=== PATIENT | female | born 1940 | race Caucasian/White ===

== ENCOUNTER → 2017-07-19 | Outpatient (CLI) | payer MEDICARE ==
[~2017-07-19] MED LIST: (NONE)10 MG PO; ALTERIL PO; AMBIEN10 M1 PO; AMLODIPINE10 MG; AMLODIPINE5 MG PO; ATENOLOL25 MG PO; ATIVAN1 MG PO; CARVEDILOL12.5 MG; CATAPRES0.2 MG PO; CEFTIN250 MG PO; CIPRO500 MG PO; CLONIDINE0.2 MG PO; CYMBALTA20 MG PO; DESYREL50 MG PO; DICYCLOCOT10 MG PO; DIFLUCAN100 MG PO; DITROPAN5 MG PO; DOES NOT KNOW MEDS; DULCOLAX5 MG PO; GABAPENTIN300 M1; GLUCOPHAGE500 MG PO; LANTUS100 U/ML SC; LASIX20 MG; LISINOPRIL20 MG PO; METFORMIN500 MG PO; METHOCARBAMOL750 MG PO; MOTRIN800 MG PO; NORVASC5 MG PO; PHENAZOPYRIDIN200 M1 PO; PROTONIX40 MG PO; REQUIP0.5 MG PO; REQUIP1 MG PO; ROBAXIN750 MG PO; SYNTHROID,LEVO25 MCG PO; Synthroid,Levo25 MCG PO; TENORMIN25 MG PO; TRAMADOL50 MG; ZESTRIL20 MG PO; ZITHROMAX250 MG PO; ZOFRAN4 MG PO
[2017-07-19 18:26] LABS: HEMATOCRIT 39.5 % (37.0-47.0); HEMOGLOBIN 12.6 g/dl (12.0-16.0); MEAN CELL VOLUME 86.1 fl (81.0-99.0); MEAN CORPUSCULAR HGB 27.5 pg (27.0-31.0); MEAN CORPUSCULAR HGB CONC 31.9 g/dl (33.0-37.0); MEAN PLATELET VOLUME 9.7 fl (9.6-12.3); RED BLOOD COUNT 4.59 10*6/uL (4.10-5.10); WHITE BLOOD COUNT 15.1 10*3/uL (4.8-10.8)
[2017-07-19 18:49] LABS: ALBUMIN 2.9 gm/dl (3.1-4.5); ALKALINE PHOSPHATASE 130 U/L (45-117); BUN 24 mg/dl (7-24); CHLORIDE 98 mmol/L (98-107); CHOLESTEROL 158 mg/dL (<200); CREATININE 0.87 mg/dL (0.55-1.02); HDL CHOLESTEROL 37 mg/dl (40-60); LDL CHOLESTEROL 90 mg/dL (9-159); SGOT/AST 18 IU/L (3-35); SGPT/ALT 18 U/L (12-78); SODIUM 133 mmol/L (136-145); TOTAL PROTEIN 7.5 gm/dL (6.4-8.2); TRIGLYCERIDES 157 mg/dl (<150); VLDL CHOLESTEROL 31 mg/dL (6-40)
== END | disposition home or self-care (01) ==
LOC: LAB 17:41
DX: I10 Essential (primary) hypertension (principal); E11.9 Type 2 diabetes mellitus without complications; L97.429 Non-pressure chronic ulcer of left heel and midfoot with unspecified severity; R60.0 Localized edema

== ENCOUNTER → 2017-07-22 | Outpatient (CLI) | payer MEDICARE | END | disposition home or self-care (01) | LOC: WOUNDCARE 02:32 | DX: E11.621 Type 2 diabetes mellitus with foot ulcer (principal); L97.412 Non-pressure chronic ulcer of right heel and midfoot with fat layer exposed; L97.422 Non-pressure chronic ulcer of left heel and midfoot with fat layer exposed; E03.9 Hypothyroidism, unspecified; I10 Essential (primary) hypertension; M19.90 Unspecified osteoarthritis, unspecified site; F41.9 Anxiety disorder, unspecified; F32.9 Major depressive disorder, single episode, unspecified; F17.210 Nicotine dependence, cigarettes, uncomplicated; Z79.82 Long term (current) use of aspirin; Z90.710 Acquired absence of both cervix and uterus; Z96.652 Presence of left artificial knee joint ==

== ENCOUNTER → 2017-07-26 | Outpatient (CLI) | payer MEDICARE | END | disposition home or self-care (01) | LOC: US 15:00 | DX: L97.412 Non-pressure chronic ulcer of right heel and midfoot with fat layer exposed (principal); L97.422 Non-pressure chronic ulcer of left heel and midfoot with fat layer exposed ==

== ENCOUNTER → 2017-07-28 | Outpatient (CLI) | payer MEDICARE | END | disposition home or self-care (01) | LOC: WOUNDCARE 01:28 | DX: I70.244 Atherosclerosis of native arteries of left leg with ulceration of heel and midfoot (principal); E11.621 Type 2 diabetes mellitus with foot ulcer; L97.422 Non-pressure chronic ulcer of left heel and midfoot with fat layer exposed; I70.234 Atherosclerosis of native arteries of right leg with ulceration of heel and midfoot; L97.412 Non-pressure chronic ulcer of right heel and midfoot with fat layer exposed; E03.9 Hypothyroidism, unspecified; I10 Essential (primary) hypertension; M19.90 Unspecified osteoarthritis, unspecified site; F32.9 Major depressive disorder, single episode, unspecified; F41.9 Anxiety disorder, unspecified; F17.210 Nicotine dependence, cigarettes, uncomplicated; Z90.710 Acquired absence of both cervix and uterus; Z96.652 Presence of left artificial knee joint ==

== ENCOUNTER 2017-10-19 14:00 | Emergency (ER) | payer MEDICARE ==
[~2017-10-19] VITALS: Ht 167.6 cm; Wt 124.7 kg
[2017-10-19] MEDS ORDERED: CEFADROXIL500 M1 PO (15:35)
== END 2017-10-19 15:59 | disposition home or self-care (01) ==
LOC: ED 14:00
DX: S92.425B Nondisplaced fracture of distal phalanx of left great toe, initial encounter for open fracture (principal); E11.40 Type 2 diabetes mellitus with diabetic neuropathy, unspecified; M21.372 Foot drop, left foot; F17.200 Nicotine dependence, unspecified, uncomplicated; Z90.710 Acquired absence of both cervix and uterus; Z98.51 Tubal ligation status; Z79.899 Other long term (current) drug therapy; Z79.84 Long term (current) use of oral hypoglycemic drugs; X58.XXXA Exposure to other specified factors, initial encounter; Y93.89 Activity, other specified; Y92.89 Other specified places as the place of occurrence of the external cause; Y99.8 Other external cause status

== ENCOUNTER 2018-09-07 07:27 | Emergency (ER) | payer MEDICARE ==
[~2018-09-07] VITALS: Ht 167.6 cm; Wt 120.7 kg
[~2018-09-07 07:27] MED LIST changes: +ASPIRIN ADULT L81 M2 PO; +ASPIRIN CHEWABL81 MG PO; +CARVEDILOL3.125 MG PO; +CEFADROXIL500 M1 PO; +COREG3.125 MG PO; +COZAAR100 MG PO; +DITROPAN XL10 MG PO; +DOXYCYCLINE100 M3 PO; +FUROSEMIDE40 MG PO; +GABAPENTIN600 MG PO; +K-TAB20 MEQ PO; +LASIX40 MG PO; +LEVOTHYROXINE150 MCG PO; +LEVOTHYROXINE175 MCG PO; +LIPITOR10 MG PO; +METFORMIN HYD1000 MG PO; +NYSTOP60 GM T; +OXYBUTYNIN CHLOR5 MG PO; +POTASSIUM CHLO20 ME4 PO; +ROPINIROLE HYDRO1 MG PO; +SERTRALINE HYD100 MG PO; +SYNTHROID,LEV175 MCG PO; +TRAD5TAB1 PO
== END 2018-09-07 09:21 | disposition home or self-care (01) ==
LOC: ED 07:27
DX: S70.02XA Contusion of left hip, initial encounter (principal); S40.011A Contusion of right shoulder, initial encounter; E11.22 Type 2 diabetes mellitus with diabetic chronic kidney disease; I12.9 Hypertensive chronic kidney disease with stage 1 through stage 4 chronic kidney disease, or unspecified chronic kidney disease; E11.40 Type 2 diabetes mellitus with diabetic neuropathy, unspecified; N18.3 Chronic kidney disease, stage 3 (moderate); E03.9 Hypothyroidism, unspecified; E66.9 Obesity, unspecified; F17.200 Nicotine dependence, unspecified, uncomplicated; Z79.899 Other long term (current) drug therapy; Z79.82 Long term (current) use of aspirin; Z68.30 Body mass index [BMI] 30.0-30.9, adult; Z90.710 Acquired absence of both cervix and uterus; W06.XXXA Fall from bed, initial encounter; Y93.89 Activity, other specified; Y92.098 Other place in other non-institutional residence as the place of occurrence of the external cause; Y99.8 Other external cause status

== ENCOUNTER → 2018-10-07 | Outpatient (CLI) | payer MEDICARE | END | disposition home or self-care (01) | LOC: ORTHO 01:57 | DX: M51.36 Other intervertebral disc degeneration, lumbar region (principal); M47.816 Spondylosis without myelopathy or radiculopathy, lumbar region ==

== ENCOUNTER 2019-04-29 12:26 | Emergency (ER) | payer MEDICARE | END 2019-04-29 16:01 | LOC: ED 12:26 | DX: S30.0XXA Contusion of lower back and pelvis, initial encounter (principal); E03.9 Hypothyroidism, unspecified; E78.5 Hyperlipidemia, unspecified; I12.9 Hypertensive chronic kidney disease with stage 1 through stage 4 chronic kidney disease, or unspecified chronic kidney disease; E11.22 Type 2 diabetes mellitus with diabetic chronic kidney disease; N18.3 Chronic kidney disease, stage 3 (moderate); Y99.8 Other external cause status; F41.9 Anxiety disorder, unspecified; F32.9 Major depressive disorder, single episode, unspecified; Z79.899 Other long term (current) drug therapy; Z79.84 Long term (current) use of oral hypoglycemic drugs; Z79.82 Long term (current) use of aspirin; Z90.710 Acquired absence of both cervix and uterus; Z87.891 Personal history of nicotine dependence; W19.XXXA Unspecified fall, initial encounter; Y93.89 Activity, other specified; Y92.89 Other specified places as the place of occurrence of the external cause ==

== ENCOUNTER 2019-05-27 19:47 | Inpatient (IN) | payer MEDICARE ==
[~2019-05-27] VITALS: Ht 167.6 cm; Wt 133.6 kg
[2019-05-27 20:31] LABS: CLARITY SL CLOUDY (CLEAR); COLOR YELLOW (YELLOW)
[2019-05-27 20:32] LABS: BILIRUBIN NEGATIVE (NEGATIVE); BLOOD 1+ (NEGATIVE); GLUCOSE NEGATIVE (NEGATIVE); KETONE NEGATIVE (NEGATIVE); LEUKO ESTERASE 2+ (NEGATIVE); NITRITE NEGATIVE (NEGATIVE); PH 8.5 (5.0-9.0); SPECIFIC GRAVITY 1.005 (1.005-1.030); UROBILINOGEN 0.2 E.U./dl (0.2-1.0)
[2019-05-27 20:34] LABS: BACTERIA 4+; RBC 0-2 rbc/hpf (0-2)
[2019-05-27 20:35] VITALS: BP 170/78
[2019-05-27 20:43] LABS: BASO # 0.1 10*3/uL (0.0-0.1); BASO % 0.5 % (0.0-1.0); EOS # 0.1 10*3/uL (0.0-0.4); EOS % 0.6 % (1.0-4.0); HEMATOCRIT 36.6 % (37.0-47.0); HEMOGLOBIN 11.1 g/dl (12.0-16.0); LYMPH # 2.4 10*3/uL (1.3-4.4); LYMPH % 12.6 % (27.0-41.0); MEAN CELL VOLUME 88.6 fl (81.0-99.0); MEAN CORPUSCULAR HGB 26.9 pg (27.0-31.0); MEAN CORPUSCULAR HGB CONC 30.3 g/dl (33.0-37.0); MEAN PLATELET VOLUME 9.5 fl (9.6-12.3); MONO # 1.3 10*3/uL (0.1-1.0); MONO % 6.7 % (3.0-9.0); NEUT # 14.7 10*3/uL (2.3-7.9); NEUT % 78.5 % (47.0-73.0); PLATELET COUNT AUTOMATED 420 10*3/uL (130-400); RED BLOOD COUNT 4.13 10*6/uL (4.10-5.10); RED CELL DISTRI WIDTH 14.6 % (0-14.5); WHITE BLOOD COUNT 18.8 10*3/uL (4.8-10.8)
[2019-05-27 20:55] LABS: ACT PARTIAL THROMBO TIME 28.2 SECONDS (20.0-32.1)
[2019-05-27 21:06] LABS: ALBUMIN 2.6 gm/dl (3.1-4.5); ALKALINE PHOSPHATASE 89 U/L (45-117); BUN 36 mg/dl (7-24); CHLORIDE 95 mmol/L (98-107); CREATININE 1.71 mg/dL (0.55-1.02); POTASSIUM 4.4 mmol/L (3.5-5.1); SGOT/AST 74 IU/L (3-35); SGPT/ALT 37 U/L (12-78); SODIUM 131 mmol/L (136-145); TOTAL PROTEIN 9.5 gm/dL (6.4-8.2)
[2019-05-27 21:07] LABS: TROPONIN I < 0.015 ng/ml (<0.045)
[2019-05-27 21:21] VITALS: BP 173/85
[2019-05-27 21:46] VITALS: BP 161/83
[2019-05-27 22:45] VITALS: BP 167/82
--- NOTE | 2019-05-27 22:50 | NUR ---
PT IS CONFUSED. ALERT TO SELF. NOT ABLE TO RESPOND TO QUESTIONS APPROPRIATLY, AND JUST RESPONDS "YES" TO EVERYTHING YOU ASK/SAY. BED ALARM ON, WHEELS LOCKED AND BED IN LOWEST POSITION. PT IS GIVEN THE CALL LIGHT AND SHOWED HOW TO USE IT. WILL CONTINUE TO MONITOR
[2019-05-27] MEDS ORDERED: LANTUS SOL100 UNIT/1 IM (23:15)
[2019-05-27] MEDS ORDERED: NORVASC5 MG PO (23:16)
[2019-05-27] MEDS ORDERED: HYDROCODON-ACET15 ML PO (23:17)
[2019-05-27] MEDS ORDERED: CRANBERRY200 MG PO (23:24)
[2019-05-27] MEDS ORDERED: FLORASTOR250 MG PO (23:25)
[2019-05-27] MEDS ORDERED: STOOL SOFTENER240 M2 PO (23:26)
[2019-05-27] MEDS ORDERED: HUMALOG100 UNIT/2 SC (23:27)
[2019-05-27] MEDS ORDERED: ABILIFY2 MG PO (23:28)
[2019-05-27] MEDS ORDERED: CYMBALTA30 MG PO (23:29)
[2019-05-27] MEDS ORDERED: GLIMEPIRIDE2 MG PO (23:30)
[2019-05-27] MEDS ORDERED: GLUCOPHAGE1000 MG PO (23:30)
[2019-05-27] MEDS ORDERED: TRAD5TAB1 PO (23:32)
[2019-05-27] MEDS ORDERED: OXYBUTYNIN10 MG PO (23:33)
--- NOTE | 2019-05-27 23:36 | NUR ---
CALLED DR ROBBINS TO LET HIM KNOW OF UPDATED MED REC
[2019-05-28] VITALS: BP 160/60
--- NOTE | 2019-05-28 00:02 | NUR ---
PT BLOOD SUGAR IS 60, ORANGE JUICE GIVEN AT THIS TIME. WILL RE-CHECK SUGAR
--- NOTE | 2019-05-28 00:40 | NUR ---
BLADDER SCANNER DONE AT THIS TIME AND SHOWING 17ML. WILL CONTINUE TO MONITOR
--- NOTE | 2019-05-28 02:01 | NUR ---
24 HR chart check completed.
[2019-05-28 03:49] VITALS: BP 160/58
--- NOTE | 2019-05-28 05:53 | NUR ---
CALLED DR CHAPPELL RESIDENT ABOUT FLORENCE HUERTA, WILL BE IN THIS MORNING TO SEE PATIENT
[2019-05-28 06:32] LABS: BASO # 0.1 10*3/uL (0.0-0.1); BASO % 0.4 % (0.0-1.0); EOS # 0.2 10*3/uL (0.0-0.4); EOS % 1.4 % (1.0-4.0); HEMATOCRIT 32.1 % (37.0-47.0); HEMOGLOBIN 9.6 g/dl (12.0-16.0); LYMPH # 2.1 10*3/uL (1.3-4.4); LYMPH % 12.9 % (27.0-41.0); MEAN CELL VOLUME 88.4 fl (81.0-99.0); MEAN CORPUSCULAR HGB 26.4 pg (27.0-31.0); MEAN CORPUSCULAR HGB CONC 29.9 g/dl (33.0-37.0); MEAN PLATELET VOLUME 9.7 fl (9.6-12.3); MONO # 0.9 10*3/uL (0.1-1.0); MONO % 5.8 % (3.0-9.0); NEUT # 12.8 10*3/uL (2.3-7.9); NEUT % 78.4 % (47.0-73.0); PLATELET COUNT AUTOMATED 369 10*3/uL (130-400); RED BLOOD COUNT 3.63 10*6/uL (4.10-5.10); RED CELL DISTRI WIDTH 14.6 % (0-14.5); WHITE BLOOD COUNT 16.3 10*3/uL (4.8-10.8)
[2019-05-28 07:03] LABS: ALBUMIN 2.2 gm/dl (3.1-4.5); CREATININE 1.52 mg/dL (0.55-1.02); FREE T4 1.11 ng/dl (0.76-1.46); PHOSPHOROUS 4.6 mg/dL (2.5-4.9); POTASSIUM 4.6 mmol/L (3.5-5.1); TOTAL PROTEIN 8.1 gm/dL (6.4-8.2)
[2019-05-28 07:07] LABS: THYROID STIM HORMONE (HS) 0.895 uIU/ml (0.358-4.75)
[2019-05-28 07:40] LABS: VITAMIN D, 25-HYDROXY 23.7 ng/mL (30-100)
--- NOTE | 2019-05-28 11:30 | NUR ---
PT'S BLOOD SUGAR READING AT 52. WHILE ADMINISTERING AMP OF D50, IV INFILTRATED. NEW IV STARTED BY HUMAIRA RAMIREZ. DR. MACDONALD NOTIFIED.
[2019-05-28 12:00] VITALS: BP 154/65
--- NOTE | 2019-05-28 12:30 | NUR ---
PTS BLOOD SUGAR RECHECK RESULT IS 99.
[2019-05-28 16:00] VITALS: BP 174/72
[2019-05-28 20:00] VITALS: BP 155/66
--- NOTE | 2019-05-28 20:40 | NUR ---
PT RESTING IN BED NO DISTRESS NOTED/ WILL MONITOR
--- NOTE | 2019-05-28 21:00 | NUR ---
CALLED AND SPOKE WITH DR ROBBINS REGARDING PT STATUS AND CLARIFIED PT TO BE MONITORED
--- NOTE | 2019-05-28 21:00 | NUR ---
PT INCONTINENT FOR LARGE AMOUNT OF URINE
[2019-05-29] VITALS (14 sets, daily range): BP systolic 159–209; BP diastolic 60–92
--- NOTE | 2019-05-29 00:43 | NUR ---
BLADDER SCANNED FOR 47ML
--- NOTE | 2019-05-29 01:59 | NUR ---
PT MEDICATED WIH TYLENOL SUPP FOR TEMP WILL MONITOR
--- NOTE | 2019-05-29 02:14 | NUR ---
PT INCONTINENT FOR LARGE AMOUNT OF URINE
[2019-05-29 06:38] LABS: BASO # 0.1 10*3/uL (0.0-0.1); BASO % 0.3 % (0.0-1.0); EOS % 0.1 % (1.0-4.0); HEMATOCRIT 30.8 % (37.0-47.0); HEMOGLOBIN 9.7 g/dl (12.0-16.0); LYMPH # 1.3 10*3/uL (1.3-4.4); LYMPH % 8.4 % (27.0-41.0); MEAN CELL VOLUME 85.6 fl (81.0-99.0); MEAN CORPUSCULAR HGB 26.9 pg (27.0-31.0); MEAN CORPUSCULAR HGB CONC 31.5 g/dl (33.0-37.0); MEAN PLATELET VOLUME 9.5 fl (9.6-12.3); MONO % 6.1 % (3.0-9.0); NEUT # 13.4 10*3/uL (2.3-7.9); NEUT % 83.5 % (47.0-73.0); PLATELET COUNT AUTOMATED 367 10*3/uL (130-400); RED CELL DISTRI WIDTH 14.6 % (0-14.5)
[2019-05-29 06:53] LABS: ALBUMIN 1.9 gm/dl (3.1-4.5); CREATININE 1.1 mg/dL (0.55-1.02)
[2019-05-29 09:00] LABS: ABG BASE EXCESS 3.8 mmol/L (-2.0-2.0); ARTERIAL BLOOD GAS PH 7.442 (7.35-7.45)
--- NOTE | 2019-05-29 09:40 | NUR ---
PT ARRIVED VIA CART S/P CT SCAN CHEST AND HEAD AND TWO VIEW CXR. SKIN HOT AND DRY, VENTURI MASK IN PLACE. PT TACHYPNEIC AND MUMBLES INCOHERENTLY. TEMP 103.2 RECTALLY. PLACED ON COOLING BLANKET. DR FERNANDEZ NOTIFIED OF CONSULTATION ADN SAW PATIENT. DISCUSSED CARE WITH DR MORGAN. CRACKLES AND WHEEZE ON AUSCULTATION. RESPIRATORY THERAPY HERE. PT PLACED ON BIPAP.
--- NOTE | 2019-05-29 10:23 | NUR ---
DAUGHTER NOTIFIED OF TRANSFER TO ICU
--- NOTE | 2019-05-29 10:30 | NUR ---
ZORAIDA WOODARD [id number] Please refer to the physician's history and physical for past medical history, comorbid conditions, and allergies. Diagnosis: UTI DIABETIC FOOT ULCER ACUTE HYPONATREMIA Bruce Score: 11,HIGH RISK WOUND DESCRIPTIONS: Wound Number: 1 Location of the wound: LEFT FOOT Thickness: Full Size: 3.5cm X 4cm X 0.1cm Tunneling: NONE Undermining: NONE Sinus Tract: NONE Presence of Exudate: Serous sanguineous Amount: Light Color: Red Odor: None Periwound Skin Appearance: Erythema Wound edges: APPROXIMATED Pain (associated with wound): DENIED AT TIME OF ASSESSMENT How does patient state this happened? PATIENT UNSURE HOW THIS HAPPENED. Surface the patient is resting on: Isoflex SKIN PREVENTION RECOMMENDATION: 1. Pressure redistribution support surface as appropriate 2. Elevate heels 3. Remove boots/TEDS every shift and reapply 4. Head of bed 30 degrees as tolerated 5. Assess nutrition and hydration 6. Manage moisture 7. Avoid the use of containment devices while in bed 8. Use absorptive products on surfaces limit layers of linens on bed 9. Turn and reposition every 1-2 hours in bed and every 1 hour in chair as tolerated 10. Weight shifts every 15 minutes while up in chair 11. Offloading with pillows or device to keep heels elevated off bed 12. Monitor skin at least every shift 13. Inspect under medical devices twice a day WOUND TREATMENT RECOMMENDATIONS: PODIATRY ALREADY ON CONSULT FOR LEFT FOOT. VENOUS AND ARTERIAL STUDIES ALREADY ORDERED. FULL THICKNESS GUIDELINES LEFT FOOT: CLEANSE WITH NSS APPLY SUREPREP AROUND THE WOUND ALLOW TO DRY APPLY THERAHONEY TO WOUND BED COVER WITH OPTIFOAM GENTLE CHANGE EVERY 2 DAYS AND PRN SOILING.
--- NOTE | 2019-05-29 10:32 | NUR ---
#16 FRANCO CATHETER PLACED FOR CLEAR, YELLOW URINE. PT HAS A FOOT WOUND LATERAL ASPECT OF LEFT FOOT. BILATERAL HEEL RAISERS IN PLACE. DR MORGAN TALKED WITH PT'S DAUGHTER MINERVA ONOFRE VIA PHONE AND FULL CODE MEASURES ARE TO BE IN PLACE.
--- NOTE | 2019-05-29 11:25 | NUR ---
Dr. Jennings notified of wound care recommendations.
--- NOTE | 2019-05-29 11:34 | NUR ---
ONE FAILED ATTEMPT AT ULTRASOUND GUIDED PIV INSERTION.DAUGHTER MINERVA CALLED FOR CONSENT FOR A CENTRAL LINE PLACEMENT. ABG'S OBTAINED BY RESPIRATORY THERAPY.
[2019-05-29 11:49] LABS: ABG BASE EXCESS 2.3 mmol/L (-2.0-2.0); ARTERIAL BLOOD GAS PH 7.428 (7.35-7.45)
--- NOTE | 2019-05-29 12:41 | NUR ---
TYLENOL SUPPOSITORY FOR PERSISTENT TEMP ELEVATION IN SPITE OF COOLING BLANKET. PT REPOSITIONED. ONE LITER SALINE FLUID BOLUS COMPLETED. D5W CONTINUES AT 60/HR.
--- NOTE | 2019-05-29 12:50 | NUR ---
THE ABG RESULTS WERE CALLED EARLIER TO DR FERNANDEZ BY NEFTALY FROM RESPIRATORY. HE ALSO TALKED WITH ME TO ASCERTAIN PT'S CODE STATUS AND HE WAS INFORMED THAT DR MORGAN HAD TALKED WITH DAUGHTER AND PT REMAINS A FULL CODE. NO NEW ORDERS RECEIVED.
--- NOTE | 2019-05-29 12:51 | NUR ---
HAVE BEEN UNABLE TO GIVE PT ANY OF HER ORAL MEDS PER REPORT SHE WAS UNABLE TO SWALLOW.
[2019-05-29] MEDS ORDERED: AMBIEN5 MG PO (13:18)
--- NOTE | 2019-05-29 14:36 | NUR ---
TWO ULTRASOUND GUIDED PIV-20 GUAGE ACCUCATHS PLACED, ONE IN EACH ANTECUBITAL AREA.
--- NOTE | 2019-05-29 14:46 | NUR ---
08:30 CALLED TO PT'S ROOM DUE TO LOW SPO2. UPON ARIVAL, PT WOTH RR 34 SPO2 88% ON 3 L NC. O2 INCREASED TO 5 L NC. ABG DRAWN. DA GIVEN. ABG DRAWN. PT TAKEN TO CT SCAN. TO BE ADMITTED TO ICU.
--- NOTE | 2019-05-29 14:50 | NUR ---
10:00 PT ARRIVED TO ICU. PT PLACED ON COOLING BLANKET. MOUTHCARE COMPLETED. PT PLACED ON BIPAP / 40%. TOLERATING WELL. RESPS FAST BUT UNLABORED. SYSTEM CHECKED AND FX'ING. ABG TO FOLLOW IN 1 HR.
--- NOTE | 2019-05-29 14:56 | NUR ---
SPEECH PATHOLOGY Evaluation orders received while patient on 4E. Since that time, patient has been admitted to ICCU due to a decline in status. Due to this, new orders will need to be received for evaluation to be completed. Thank you for this referral. KULDIP TILLMAN [facility]-LIBRARY HELPER
--- NOTE | 2019-05-29 15:55 | NUR ---
Shift chart check completed.24 HR chart check completed.
--- NOTE | 2019-05-29 16:00 | NUR ---
DR PORTER HAD ENTERED WOUND CARE ORDERS THAT WERE DIFFERENT THAN PODIATRY'S ORDERS OF EARLIER TODAY. I PHONED HIM AND HE SAID TO CANCEL HIS ORDERS AND FOLLOW PODIATRY'S ORDERS.
--- NOTE | 2019-05-29 16:41 | NUR ---
PT MORE AWAKE. TOOK BIPAP OFF, PLACED ON NASAL CANNULA. PT ABLE TO TAKE A BITE OF APPLESAUCE WITH EASE AND WITHOUT COUGHING. WAS ABLE TO GET HER DOSE OF NORVASC AND COREG INTO HER.
--- NOTE | 2019-05-29 17:41 | NUR ---
TYLENOL BY MOUTH WAS GIVEN AT 1638 FOR PERSISTENT TEMP ELEVATION.
--- NOTE | 2019-05-29 17:51 | NUR ---
LABETALOL 10MG IV FOR PERSISTENT HYPERTENSION.
--- NOTE | 2019-05-29 19:00 | NUR ---
COMPLETE BATH AND BED LINEN CHANGE DONE DURING BEDSIDE SHIFT REPORT. PT REMAINS ON BIPAP.
--- NOTE | 2019-05-29 19:24 | NUR ---
CHART CHECK COMPLETE.
--- NOTE | 2019-05-29 21:50 | NUR ---
2130 TEMP 101.6 ON CONTINUOUS PROBE OF COOLING BLANKET. MEDICATED WITH TYLENOL ORDERED ALONG WITH OTHER PO MEDICATIONS CRUSHED AND IN APPLESAUCE. SHE INGESTED THEM WITHOUT ANY DIFFICULTY. PLACED BACK ON BIPAP BY RESP DEPT. 0 TEMP DOWN TO 101.4. POSITIONED FOR COMFORT.
--- NOTE | 2019-05-29 23:38 | NUR ---
LABETOLOL ORDERED FOR BP 182/78. PT HAS BEEN OFF OF BIPAP SINCE 2299 TO GIVE HER A BREAK FROM MASK. SHE IS TOLERATING NC6 WITH PULSE OX MID TO LOW 90'S. HOB ELEVATED. PT HAS A HARSH COUGH. SHE AWAKENS EASILY TO MY VOICE AND FOLLOWS ME WITH HER EYES.
--- NOTE | 2019-05-29 23:42 | NUR ---
TYLENOL GIVEN EARLIER WAS EFFECTIVE...TEMPERATURE PER CONTINUOUS PROBE DOWN TO 100.1.
[2019-05-30] VITALS (29 sets, daily range): BP systolic 77–203; BP diastolic 38–95
--- NOTE | 2019-05-30 | NUR ---
PT BACK TO BIPAP WITH PREVIOUS SETTINGS. TEMP DOWN TO 99.8...BLANKET PLACED ON MONITOR MODE. ASSISTED PT TO POSITION OF COMFORT. ALL EXPLANATIONS PROVIDED PRIOR TO CARE.
--- NOTE | 2019-05-30 01:43 | NUR ---
PT RETURNED TO COOLING MODE....TEMP 100.7.
--- NOTE | 2019-05-30 02:49 | NUR ---
PT'S TEMP 102.1 PER CONTINUOUS PROBE ON COOLING BLANKET. MEDICATED WITH TYLENOL SUPPOSITORY. REPOSITIONING SIDE TO SIDE CONTINUES. BIPAP REMAINS ON. RR 30/MIN WITH ELEVATED TEMP. PULSE OX 97%.
--- NOTE | 2019-05-30 03:43 | NUR ---
DR CHAO UPDATED ON HYPERTENSION/CONDITION REVIEWED.
--- NOTE | 2019-05-30 04:02 | NUR ---
BP 196/85. APRESOLINE GIVEN ORDERED.
[2019-05-30 04:49] LABS: HEMATOCRIT 34.6 % (37.0-47.0); HEMOGLOBIN 10.8 g/dl (12.0-16.0); MEAN CELL VOLUME 86.7 fl (81.0-99.0); MEAN CORPUSCULAR HGB 27.1 pg (27.0-31.0); MEAN CORPUSCULAR HGB CONC 31.2 g/dl (33.0-37.0); MEAN PLATELET VOLUME 9.8 fl (9.6-12.3); PLATELET COUNT AUTOMATED 344 10*3/uL (130-400); RED BLOOD COUNT 3.99 10*6/uL (4.10-5.10); RED CELL DISTRI WIDTH 14.5 % (0-14.5)
[2019-05-30 05:02] LABS: BUN 19 mg/dl (7-24); CHLORIDE 101 mmol/L (98-107); CREATININE 1.03 mg/dL (0.55-1.02); PHOSPHOROUS 2.3 mg/dL (2.5-4.9); SODIUM 132 mmol/L (136-145)
[2019-05-30 05:12] LABS: PLATELET SUFFICIENCY NORMAL (NORMAL); TOTAL CELLS COUNTED 100 #CELLS
--- NOTE | 2019-05-30 06:22 | NUR ---
BP WAS 203/88... PT'S TEMP REMAINS 100.8... PT WITH PERIODS OF SHIVERING. MEDICATED WITH LABETOLOL ORDERED.
--- NOTE | 2019-05-30 07:02 | NUR ---
Shift chart check completed.24 HR chart check completed.
--- NOTE | 2019-05-30 08:12 | NUR ---
ON ASSESSMENT PATIENT AROUSES TO HER NAME, TAKEN BIPAP OFF FOR ORAL MEDS. THESE WERE GIVEN WITH APPLESAUCE AND RETAINED. SHE BECOMES TACHYPMEIC SOON OFF THE BIPAP. ORAL CARE GIVEN AND SHE WAS PLACED BACK ON BIPAP. PRN DOSE OF TYLENOL AND ASPIRIN GIVEN FOR PERSISTENT TEMP ELEVATION. COOLING BLANKET CONTINUES, WITH TEMP 101.7 CHECKED TEMP WITH TYMPANIC 100.9. FRANCO PATENT CLEAR YELLOW URINE. IV FLUIDS CONTINUE. DR MORGAN UPDATED. SEE ALL APPROPRIATE INTERVENTIONS.
--- NOTE | 2019-05-30 08:53 | NUR ---
DR MCDONNELL HAS VISITED.
--- NOTE | 2019-05-30 08:58 | NUR ---
[facility] OFFICE NOTIFIED OF CONSULTATION.
--- NOTE | 2019-05-30 10:26 | NUR ---
AT 0930 DR FERNANDEZ VISITED. ORDERED PT TO INTUBATED, ANESTHESIA TO STAND-BY DURING INTUBATION. VENT SETTINGS WERE GIVEN AND HE PLANS TO DO BRONCHOSCOPY TOMORROW. DAUGHTER, MINERVA, NOTIFIED AND CONSENT OBTAINED FOR INTUBATION AND BRONCHSOCPY. AT 0945 PT INTUBATED WITH 7.5 TUBE, USING GLIDESCOPE. PROPOFOL AND SUCCINYLCHOLINE GIVEN BY SOLITARIO FROM ANESTHESIA. PROPOFOL DRIP HAS BEEN STARTED AT 20MCG/KG/MIN. #18 PLACED LEFT NARE. CXR HAS BEEN DONE. SOFT RESTRAINTS IN PLACE. SEE ALL APPROPRIATE INTERVENTIONS.
--- NOTE | 2019-05-30 10:32 | NUR ---
DR COLBERT RETURNED CONSULT CALL WHILE I WAS IN PT'S ROOM FOR INTUBATION. DR MORGAN HAS CALLED HER BACK AND REVIEWED CULTURES AND ORDERS. HE'S ENTERING ORDERS PER HER RECOMMENDATIONS.
--- NOTE | 2019-05-30 10:48 | NUR ---
BP DECREASED TO 70'S SYSTOLIC. DR MORGAN AWARE. CHECKED DIFFERENT EXTREMITIES. DIPRIVAN DRIP TURNED OFF. NS UP TO INFUSE 250/HR X 500ML.
--- NOTE | 2019-05-30 10:55 | NUR ---
SPEECH PATHOLOGY Orders for swallowing evaluation received and chart review completed. Patient has had a decline in status and has been intubated therefore she is not appropriate for assessment of swallowing at this time. This dept. will remain available as needed if future needs arise. KULDIP NEWELL [facility]-GROUP HOME PARAPROFESSIONAL
--- NOTE | 2019-05-30 11:11 | NUR ---
Patient updated clinicals faxed to [facility] for review. Patient is alf care.
[2019-05-30 11:20] LABS: ABG BASE EXCESS 1.2 mmol/L (-2.0-2.0); ARTERIAL BLOOD GAS PH 7.469 (7.35-7.45)
--- NOTE | 2019-05-30 11:26 | NUR ---
AFTER 150ML OF SALINE HAS INFUSED BP HAS RECOVERED. PT AWAKE, LOOKING AROUND, ANXIOUS. DIPRIVAN DRIP RESUMED AT 15MCG/KG/MIN AND THIS APPEARS EFFECTIVE.
--- NOTE | 2019-05-30 11:34 | NUR ---
RESPIRATORY GORGE CALLED DR FERNANDEZ WITH ABG RESULTS. I REVIEWED LATEST ANTIBIOTIC ORDERS AND PT'S OVERALL REPORT. NO NEW ORDERS RECEIVED.
--- NOTE | 2019-05-30 14:26 | NUR ---
DR FERNANDEZ HAS CALLED IN TO CHECK ON PT. PT SCHEDULED FOR BRONCHOSCOPY AT THE BEDSIDE FOR TOMORROW AT 0830.
[2019-05-30 16:08] LABS: MYCOPLASMA PNEUMONIAE IGG 113 U/mL (0-99); MYCOPLASMA PNEUMONIAE IGG 116 U/mL (0-99); MYCOPLASMA PNEUMONIAE IGM <770 U/mL (0-769)
--- NOTE | 2019-05-30 16:25 | NUR ---
PT RESTING EASILY. DIPRIVAN AT 15MCG/KG/MIN WITH ADEQUATE SEDATION. RESPIRATORY HAS DECREASED FIO2 TO 40%. TUBE FEEDINGS, PULMOCARE AT 20ML/HR. COOLING BLANKET REMAINS IN MONITOR MODE. PT REPOSITIONED FOR COMFORT. ARMS ELEVATED ON PILLOWS, DEPENDENT EDEMA. SEE ALL APPROPRIATE INTERVENTIONS.
--- NOTE | 2019-05-30 22:58 | NUR ---
COMPLETE BATH AND BED LINEN CHANGE DONE. PT TOLERATED WELL. COOLING BLANKET UNDER PT BUT ON MONITOR MODE. TYLENOL AND ASA SUPPOSITORY STARTING TO BE EFFECTIVE PT WITH TEMP 99.6 - 100.3.
[2019-05-31] VITALS (13 sets, daily range): BP systolic 122–167; BP diastolic 63–82
[2019-05-31 05:12] LABS: ALBUMIN 1.6 gm/dl (3.1-4.5); CREATININE 1.46 mg/dL (0.55-1.02); PHOSPHOROUS 3.4 mg/dL (2.5-4.9); POTASSIUM 3.7 mmol/L (3.5-5.1); TOTAL PROTEIN 7.2 gm/dL (6.4-8.2)
[2019-05-31 06:11] LABS: BASO % 0.2 % (0.0-1.0); EOS # 0.1 10*3/uL (0.0-0.4); EOS % 0.3 % (1.0-4.0); HEMATOCRIT 28.6 % (37.0-47.0); HEMOGLOBIN 9.1 g/dl (12.0-16.0); LYMPH # 1.6 10*3/uL (1.3-4.4); MEAN CELL VOLUME 84.1 fl (81.0-99.0); MEAN CORPUSCULAR HGB 26.8 pg (27.0-31.0); MEAN CORPUSCULAR HGB CONC 31.8 g/dl (33.0-37.0); MEAN PLATELET VOLUME 10.1 fl (9.6-12.3); MONO # 0.7 10*3/uL (0.1-1.0); MONO % 4.1 % (3.0-9.0); NEUT # 15.2 10*3/uL (2.3-7.9); NEUT % 85.1 % (47.0-73.0); PLATELET COUNT AUTOMATED 333 10*3/uL (130-400); RED CELL DISTRI WIDTH 14.7 % (0-14.5); WHITE BLOOD COUNT 17.9 10*3/uL (4.8-10.8)
[2019-05-31 08:14] LABS: ABG BASE EXCESS 1.1 mmol/L (-2.0-2.0); ARTERIAL BLOOD GAS PH 7.44 (7.35-7.45)
--- NOTE | 2019-05-31 09:10 | NUR ---
AND SURGICAL TEAM AT BEDSIDE FOR BRONCHOSCOPY.
[2019-05-31 11:11] LABS: BF MACROPHAGES 3 %; BF NEUTROPHILS 97 %
--- NOTE | 2019-05-31 16:17 | NUR ---
TEMPERATURE 101 PER CP. MEDICATED WITH TYLENOL PER PRN ORDER. WILL CONTINUE TO MONITOR.
--- NOTE | 2019-05-31 18:56 | NUR ---
Shift chart check completed.24 HR chart check completed.
--- NOTE | 2019-05-31 20:00 | NUR ---
Pt suctioned for moderate amt creamy, bloody secretions. HME changed and secretions drained out of tubing. Aalrms on and audible.
--- NOTE | 2019-05-31 20:27 | NUR ---
ON ASSESSMENT PATIENT REMAINS ORALLY INTUBATED, RESTRAINED, ADEQUATELY SEDATED ON DIPRIVAN AT 15MCG/KG/MIN. SHE AROUSES TO HER NAME AT THIS DOSE. PULMOCARE TUBE FEEDINGS INFUSING AT 20/HR. BILATERAL HEEL RAISERS IN PLACE. THERE IS A GAUZE WRAPPED DRESSING TO HER LEFT FOOT THAT WASN'T THERE YESTERDAY. FRANCO PATENT YELLOW URINE. GENERALIZED EDEMA CONTINUES. SEE ALL APPROPRIATE INTERVENTIONS.
--- NOTE | 2019-05-31 22:23 | NUR ---
TYLENOL VIA NGT FOR LOW GRADE TEMP 100.
--- NOTE | 2019-05-31 22:23 | NUR ---
PHONE UPDATE TO DAUGHTER, MINERVA.
--- NOTE | 2019-05-31 23:30 | NUR ---
Pts tubing drained again with secretions. Alarms on and audible on ventilator. Pt resting comfortably.
[2019-06-01] VITALS (12 sets, daily range): BP systolic 119–170; BP diastolic 60–87
[2019-06-01 00:05] LABS: PARAINFLUENZA 1 CF Negative (Neg:<1:8); PARAINFLUENZA 2 CF Negative (Neg:<1:8); PARAINFLUENZA 3 CF Negative (Neg:<1:8)
--- NOTE | 2019-06-01 05:11 | NUR ---
PT WAS BATHED/HAIR WASHED EARLIER. COOLING BLANKET REMOVED FROM UNDER HER AND SHE'S BEEN REPOSITIONED Q2H. HER TEMP HAS BEEN MAINTAINING <100 ALL NIGHT. NEW IV SITE HAS BEEN OBTAINED IN HER LEFT ARM. HER RT HAND IS VERY EDEMATOUS AND COOL. EASILY PALPABLE RADIAL PULSE. EXTREMITIES ELEVATED ON PILLOWS.
[2019-06-01 05:34] LABS: ALBUMIN 1.6 gm/dl (3.1-4.5); CREATININE 1.2 mg/dL (0.55-1.02); PHOSPHOROUS 2.8 mg/dL (2.5-4.9); POTASSIUM 3.5 mmol/L (3.5-5.1); TOTAL PROTEIN 7.9 gm/dL (6.4-8.2)
[2019-06-01 06:07] LABS: HEMATOCRIT 31.1 % (37.0-47.0); HEMOGLOBIN 9.5 g/dl (12.0-16.0); MEAN CELL VOLUME 86.6 fl (81.0-99.0); MEAN CORPUSCULAR HGB 26.5 pg (27.0-31.0); MEAN CORPUSCULAR HGB CONC 30.5 g/dl (33.0-37.0); MEAN PLATELET VOLUME 10.3 fl (9.6-12.3); PLATELET COUNT AUTOMATED 379 10*3/uL (130-400); RED BLOOD COUNT 3.59 10*6/uL (4.10-5.10); RED CELL DISTRI WIDTH 14.7 % (0-14.5); WHITE BLOOD COUNT 18.3 10*3/uL (4.8-10.8)
[2019-06-01 06:30] LABS: PLATELET SUFFICIENCY NORMAL (NORMAL); TOTAL CELLS COUNTED 100 #CELLS
[2019-06-01 07:59] LABS: ABG BASE EXCESS 1.2 mmol/L (-2.0-2.0); ARTERIAL BLOOD GAS PH 7.473 (7.35-7.45)
--- NOTE | 2019-06-01 10:00 | NUR ---
PER DR FERNANDEZ DECREASE TIDAL VOLUME TO 500, RR TO 12
[2019-06-01 11:40] LABS: ABG BASE EXCESS 0.9 mmol/L (-2.0-2.0); ARTERIAL BLOOD GAS PH 7.423 (7.35-7.45)
[2019-06-01 14:06] LABS: ACID FAST SPEC PROCESSING Concentration (.)
--- NOTE | 2019-06-01 20:30 | NUR ---
1930 RESTING IN BED WITH HOB ELEVATED. SIDE RAILS UP X'S 2. NPO. ORAL AND EYE CARE DONE. SUCTIONED ORALLY AND VIA ET. SEE INTERVENTION SCREEN. WRIST RESTRAINTS INTACT BILATERALLY. CIRCULATION ADEQUATE. PULSE OX 96% ON 35% FIO2 VIA VENT. NGT INTACT WITH TF MAINTAINED AT 20CC/HR. PLACEMENT CONFIRMED WITH AIR BOLUS/AUSCULTATION. FRANCO PATENT AND DRAINING CLEAR YELLOW URINE. DRSG D/I TO LEFT FOOT. NO DRNG NOTED. DIPRIVAN GTT CONT AT 15MICS. PT EYES OPEN TO NAME.
[2019-06-02] VITALS (9 sets, daily range): BP systolic 109–143; BP diastolic 62–84
--- NOTE | 2019-06-02 00:14 | NUR ---
COMPLETE BED BATH GIVEN AND LINENS CHANGED. PT REPOSITIONED.
[2019-06-02 05:06] LABS: ALBUMIN 1.5 gm/dl (3.1-4.5); CREATININE 1.13 mg/dL (0.55-1.02); PHOSPHOROUS 2.8 mg/dL (2.5-4.9); POTASSIUM 3.6 mmol/L (3.5-5.1); TOTAL PROTEIN 7.3 gm/dL (6.4-8.2)
--- NOTE | 2019-06-02 06:07 | NUR ---
RESTING IN BED WIHTOUT DISTRESS. REMAINS AEQUATELY SEDATED ON DIPRIVAN GTT. TF MAINTAINED VIA NGT. SALVADOR REMAINS PATENT. CONDITION GUARDED.
[2019-06-02 06:10] LABS: HEMATOCRIT 26.8 % (37.0-47.0); HEMOGLOBIN 8.2 g/dl (12.0-16.0); MEAN CELL VOLUME 87.6 fl (81.0-99.0); MEAN CORPUSCULAR HGB 26.8 pg (27.0-31.0); MEAN CORPUSCULAR HGB CONC 30.6 g/dl (33.0-37.0); MEAN PLATELET VOLUME 10.2 fl (9.6-12.3); PLATELET COUNT AUTOMATED 381 10*3/uL (130-400); RED BLOOD COUNT 3.06 10*6/uL (4.10-5.10); RED CELL DISTRI WIDTH 14.9 % (0-14.5); WHITE BLOOD COUNT 13.8 10*3/uL (4.8-10.8)
[2019-06-02 07:01] LABS: POLYCHROMASIA SLIGHT; ROULEAUX SLIGHT; TOTAL CELLS COUNTED 100 #CELLS; TOXIC GRANULATION SLIGHT
[2019-06-02 07:02] LABS: PLATELET SUFFICIENCY NORMAL (NORMAL)
[2019-06-02 07:27] LABS: ABG BASE EXCESS 2.3 mmol/L (-2.0-2.0); ARTERIAL BLOOD GAS PH 7.431 (7.35-7.45)
--- NOTE | 2019-06-02 07:54 | NUR ---
Patient updated clinicals faxed to [facility] for review. Patient is skilled nursing care.
--- NOTE | 2019-06-02 09:44 | NUR ---
PT WAS PLACED ON CPAP 12/[address] FERNANDEZ. PT TOLERATING WELL. HR 63%, SPO2 93% RR 24.
[2019-06-02 11:46] LABS: ABG BASE EXCESS 1.2 mmol/L (-2.0-2.0); ARTERIAL BLOOD GAS PH 7.405 (7.35-7.45)
--- NOTE | 2019-06-02 12:15 | NUR ---
PT WAS EXTUBATED AT 12:[address]. PER [address] FERNANDEZ PLACED ON BIPAP. PT TOLERATING WELL. SPO2 96%, HR 72.
--- NOTE | 2019-06-02 15:09 | NUR ---
PT ON BIPAP AT THIS TIME.
--- NOTE | 2019-06-02 15:29 | NUR ---
TOOK PT OFF BIPAP AND PLACED ON 3LNC. SPO2 94%
--- NOTE | 2019-06-02 22:40 | NUR ---
RN INTO PATIENT ROOM, NG TUBE HAS BEEN REMOVED BY THE PATIENT AND IS NOW LAYING ON THE BED WITH PATIENT. MEDICATIONS ARE ALREADY ADMINISTERED AND PATIENT HAS NO MORE SCHEDULED MEDICATIONS UNTIL TOMOORW MORNING. PATIENT IS REFUSING TO ALLOW RN TO REPLACE THE TUBE.
[2019-06-03] VITALS: BP 141/78
--- NOTE | 2019-06-03 01:40 | NUR ---
rn into patient room, patient removed bipap, is yelling at this rn that she "is not putting it back on and that she doesnt need to wear it". bipap is broke apart. rn attempted to put back together and place onto patients face. patient yelling "this is bullshit" and has placed hands on rn wrists and is squeezing. rn instructed patient to remove hands which she did not. rn able to free my wrists and apply o2 via nasal cannula. pulse oximetry has remained 90% and above during this whole episode. patient yelling for me to call the dr because she is "starving and needs to eat" rn instructed patient that dr will be around to see her in several hours. patient arguing with nurse stating that its not night and to call dr now.
--- NOTE | 2019-06-03 03:25 | NUR ---
COLT REMOVED BIPAP IN MULTIPLY PIECES PER NURSE. PATIENT ON 3 L NASAL CANNULA.
[2019-06-03 04:00] VITALS: BP 162/82
[2019-06-03 07:00] LABS: HEMATOCRIT 29.5 % (37.0-47.0); HEMOGLOBIN 8.9 g/dl (12.0-16.0); MEAN CELL VOLUME 87.5 fl (81.0-99.0); MEAN CORPUSCULAR HGB 26.4 pg (27.0-31.0); MEAN CORPUSCULAR HGB CONC 30.2 g/dl (33.0-37.0); MEAN PLATELET VOLUME 9.6 fl (9.6-12.3); PLATELET COUNT AUTOMATED 430 10*3/uL (130-400); RED BLOOD COUNT 3.37 10*6/uL (4.10-5.10); RED CELL DISTRI WIDTH 14.7 % (0-14.5); WHITE BLOOD COUNT 13.7 10*3/uL (4.8-10.8)
[2019-06-03 07:13] LABS: CHLORIDE 106 mmol/L (98-107); CREATININE 0.88 mg/dL (0.55-1.02); POTASSIUM 3.7 mmol/L (3.5-5.1); SODIUM 137 mmol/L (136-145)
[2019-06-03 07:15] LABS: BUN 26 mg/dl (7-24)
--- NOTE | 2019-06-03 07:37 | NUR ---
24 HR chart check completed.
[2019-06-03 07:48] LABS: ABG BASE EXCESS 2.5 mmol/L (-2.0-2.0); ARTERIAL BLOOD GAS PH 7.442 (7.35-7.45)
[2019-06-03 07:49] LABS: POLYCHROMASIA SLIGHT; ROULEAUX SLIGHT; TOTAL CELLS COUNTED 100 #CELLS
[2019-06-03 07:50] LABS: PLATELET SUFFICIENCY HIGH (NORMAL); TOXIC GRANULATION SLIGHT
[2019-06-03 08:00] VITALS: BP 163/88
--- NOTE | 2019-06-03 08:06 | NUR ---
PT RESTING ON BED WITH EASY RESPIRATIONS AT THIS TIME. 3L NC IN PLACE. PT REQUESTING TO EAT. PT INFORMED OF NPO STATUS. MD AWARE PT DENIES ANY PAIN AT THIS TIME. DRESSING TO LEFT FOOT DRY AND INTACT. HEEL PROTECTORS IN PLACE. FRANCO DRAINING AURA URINE. RN TO CONTINUE TO MONITOR
--- NOTE | 2019-06-03 10:12 | NUR ---
PT CONTINUES TO REST ON BED WITH EASY RESPIRATIONS AT THIS TIME. PT REFUSING TO USE BIPAP. OXYGEN AT 3L NC. NO DISTRESS NOTED. PT DENIES PAIN. REQUESTING SOMETHING TO EAT. PT INFORMED OF MD ORDER. MD TO REVIEW UPON VISIT AND EVALUATION. PT AWARE
[2019-06-03 12:00] VITALS: BP 176/88
--- NOTE | 2019-06-03 12:18 | NUR ---
PODIATRY IN ROOM FOR DRESSING CHANGE TO LEFT FOOT. ACCUCATH LINE TO RIGHT ANTECUBITAL DISCONTINUED. CATHETER INTACT. PT TOLERATED WELL.
--- NOTE | 2019-06-03 14:15 | NUR ---
PT RESTING ON BED. LUNCH TRAY GIVEN PT DENIES ANY PAIN. RESPIROATRY STATUS STABLE.
--- NOTE | 2019-06-03 14:25 | NUR ---
PT INCONTINENT OF BOWEL. RN ASSIST WITH LINEN CHANGE AND CLEASNING. RN NOTES OPEN AREA TO LEFT THIGH. INCIDENT REPORT COMPLETED WITH PICTURES.
--- NOTE | 2019-06-03 14:47 | NUR ---
PRIOR PUNCH BOX TENDER NOTED WOUND TO LEFT THIGH. THIS WAS ERROR. STAGE 2 WOUND NOTED TO BACK OF RIGH THIGH. 1.5 CM X 0.4M CM. ACUTE BLEEDING CONTROLLED. MD AND CLINICAL CUT OUT MARKER AWARE. PICTURES TAKEN PER PROTOCOL. MD AWARE. RN AWAITING ORDERS.
[2019-06-03 16:00] VITALS: BP 166/86
[2019-06-03 20:00] VITALS: BP 171/83
--- NOTE | 2019-06-03 21:39 | NUR ---
PATIENT ADMINISTERED PM MEDICATIONS WELL A SLEEPING PILL AT THIS TIME. PATIENT COMPLAINTS OF FEELING UNABLE TO FALL ASLEEP AND WAS REQUESTING SOMETHING TO HELP.
[2019-06-04] VITALS: BP 167/90
[2019-06-04 04:00] VITALS: BP 156/74
--- NOTE | 2019-06-04 04:37 | NUR ---
PT TRANSFERRED TO 422. RESTING IN BED. VOICES NO CONCERNS AT THIS TIME. RESPS EASY AND NON LABORED. NO S/S OF DISTRESS NOTED. VSS. WHITE BOARD UPDATED. CALL LIGHT WITHIN REACH.
[2019-06-04 04:48] VITALS: BP 140/72
--- NOTE | 2019-06-04 05:04 | NUR ---
Shift chart check completed.
[2019-06-04 05:24] LABS: ALBUMIN 1.6 gm/dl (3.1-4.5); ALKALINE PHOSPHATASE 70 U/L (45-117); BUN 23 mg/dl (7-24); CHLORIDE 104 mmol/L (98-107); CREATININE 0.88 mg/dL (0.55-1.02); POTASSIUM 4.1 mmol/L (3.5-5.1); SGOT/AST 30 IU/L (3-35); SGPT/ALT 45 U/L (12-78); SODIUM 136 mmol/L (136-145); TOTAL PROTEIN 7.7 gm/dL (6.4-8.2)
[2019-06-04 06:07] LABS: HEMATOCRIT 30.5 % (37.0-47.0); HEMOGLOBIN 9.4 g/dl (12.0-16.0); MEAN CORPUSCULAR HGB 26.2 pg (27.0-31.0); MEAN CORPUSCULAR HGB CONC 30.8 g/dl (33.0-37.0); MEAN PLATELET VOLUME 9.9 fl (9.6-12.3); PLATELET COUNT AUTOMATED 537 10*3/uL (130-400); RED BLOOD COUNT 3.59 10*6/uL (4.10-5.10); RED CELL DISTRI WIDTH 14.5 % (0-14.5); WHITE BLOOD COUNT 11.5 10*3/uL (4.8-10.8)
[2019-06-04 06:40] LABS: BASOPHILS 1 % (0-1); OVALOCYTES FEW; PLATELET SUFFICIENCY HIGH (NORMAL); POLYCHROMASIA SLIGHT; ROULEAUX SLIGHT; TARGET CELLS FEW; TOTAL CELLS COUNTED 100 #CELLS
[2019-06-04 06:41] LABS: TOXIC GRANULATION SLIGHT
--- NOTE | 2019-06-04 07:05 | NUR ---
ARRIVED ON SHIFT, INTRODUCED TO PATIENT, BED IN LOW PSITION, WHEEL LOCKS ENGAGED, SR UP X 2 BED, CALL LIGHT WITHIN REACH, BED ALARM ON, NO NEEDS VOICED AT THIS TIME, WHITE BOARD UPDATED.
--- NOTE | 2019-06-04 08:23 | NUR ---
Shift chart check completed.
[2019-06-04 12:00] VITALS: BP 160/82
[2019-06-04 16:00] VITALS: BP 154/77
--- NOTE | 2019-06-04 19:55 | NUR ---
IN PT ROOM AT THIS TIME TO COMPLETE ASSESSMENT. PT IS SLEEPING. WILL COME BACK TO COMPLETE ASSESSMENT.
[2019-06-04 20:00] VITALS: BP 168/71
--- NOTE | 2019-06-04 20:25 | NUR ---
IN PT ROOM AT THIS TIME TO COMPLETE ASSESSMENT. PT IS RESTING AND IS ALERT AND ORIENTED X3. SHE HAS NOT COMPLAINTS AT THIS TIME, CALL LIGHT WITHIN REACH. WILL CONTINUE TO MONITOR
[2019-06-05] VITALS: BP 171/79
[2019-06-05 06:50] LABS: HEMATOCRIT 30.3 % (37.0-47.0); HEMOGLOBIN 9.3 g/dl (12.0-16.0); MEAN CELL VOLUME 86.1 fl (81.0-99.0); MEAN CORPUSCULAR HGB 26.4 pg (27.0-31.0); MEAN CORPUSCULAR HGB CONC 30.7 g/dl (33.0-37.0); MEAN PLATELET VOLUME 9.5 fl (9.6-12.3); PLATELET COUNT AUTOMATED 539 10*3/uL (130-400); RED BLOOD COUNT 3.52 10*6/uL (4.10-5.10); RED CELL DISTRI WIDTH 14.5 % (0-14.5); WHITE BLOOD COUNT 11.3 10*3/uL (4.8-10.8)
[2019-06-05 07:01] LABS: ALBUMIN 1.8 gm/dl (3.1-4.5); ALKALINE PHOSPHATASE 70 U/L (45-117); BUN 22 mg/dl (7-24); CHLORIDE 101 mmol/L (98-107); CREATININE 0.78 mg/dL (0.55-1.02); POTASSIUM 3.5 mmol/L (3.5-5.1); SGOT/AST 27 IU/L (3-35); SGPT/ALT 38 U/L (12-78); SODIUM 134 mmol/L (136-145); TOTAL PROTEIN 7.6 gm/dL (6.4-8.2)
--- NOTE | 2019-06-05 07:05 | NUR ---
ARRIVED ON SHIFT INTRODUCED TO PATIENT, BED IN LOW POSITION, WHEEL LOCKS ENGAGED, BED ALARM ON, CALL LIGHT WITHIN REACH, SIDE RAILS UP X 2, NO NEEDS VOICED AT THIS TIME, WHITE BOARD UPDATED.
[2019-06-05 07:15] LABS: BASOPHILS 1 % (0-1); PLATELET SUFFICIENCY HIGH (NORMAL); SCHISTOCYTES FEW; TOTAL CELLS COUNTED 100 #CELLS
--- NOTE | 2019-06-05 07:20 | NUR ---
PHYSICAL THERAPY Screen and PT eval received will follow thank you Rocio Llamas PT
--- NOTE | 2019-06-05 07:56 | NUR ---
Shift chart check completed.
[2019-06-05 08:00] VITALS: BP 150/78
--- NOTE | 2019-06-05 08:57 | NUR ---
ZORAIDA WOODARD [id number] Please refer to the physician's history and physical for past medical history, comorbid conditions, and allergies. Diagnosis: UTI DIABETIC FOOT ULCER ACUTE HYPONATREMIA Bruce Score: 11,HIGH RISK WOUND DESCRIPTIONS: Wound Number: 1 Location of the wound: LEFT FOOT Thickness: Full Size: 3.2cm X 4.8cm X 0.1cm Tunneling: NONE Undermining: NONE Sinus Tract: NONE Presence of Exudate: Serous sanguineous Amount: Light Color: Red, BLACK, BROWN Odor: None Periwound Skin Appearance: Erythema Wound edges: APPROXIMATED Pain (associated with wound): DENIED AT TIME OF ASSESSMENT WOUND #2 LEFT GREAT TOE INTACT. NO DRAINAGE NOTED AT TIME OF ASSESSMENT. Wound Number: 3 Location of the wound: RIGHT POSTERIOR THIGH Type of wound: Thickness: Partial Size: 0.8cm X 0.8cm X 0.1cm Tunneling: NONE Undermining: NONE Sinus Tract: NONE Presence of Exudate: Serous sanguineous Amount: Light Color: Red Odor: None Periwound Skin Appearance: Normal Wound edges: APPROXIMATED. Pain (associated with wound): DENIED AT TIME OF ASSESSMENT How does patient state this happened? PATIENT UNSURE HOW THIS HAPPENED. Wound Number: 4 Location of the wound: RIGHT WRIST Type of wound: Thickness: Partial Size: 1.4cm X 1cm X 0.1cm Tunneling: NON Undermining: NONE Sinus Tract: NONE Presence of Exudate: Serous Amount: Light Color: Red Odor: None Periwound Skin Appearance: Edema Wound edges: APPROXIMATED Pain (associated with wound): DENIED AT TIME OF ASSESSMENT How does patient state this happened? PATIENT UNSURE HOW THIS HAPPENED. If wound is on legs/feet or hands, capillary refill time, pulses, color temp, sensation: CAP REFILL < 3 SECONDS. RADIAL PULSE PRESENT. Surface the patient is resting on: Isoflex SKIN PREVENTION RECOMMENDATION: 1. Pressure redistribution support surface as appropriate 2. Elevate heels 3. Remove boots/TEDS every shift and reapply 4. Head of bed 30 degrees as tolerated 5. Assess nutrition and hydration 6. Manage moisture 7. Avoid the use of containment devices while in bed 8. Use absorptive products on surfaces limit layers of linens on bed 9. Turn and reposition every 1-2 hours in bed and every 1 hour in chair as tolerated 10. Weight shifts every 15 minutes while up in chair 11. Offloading with pillows or device to keep heels elevated off bed 12. Monitor skin at least every shift 13. Inspect under medical devices twice a day WOUND TREATMENT RECOMMENDATIONS: D/C DRESSING CHANGE ORDERS TO LEFT FOOT DATED 05/29/19 AND 05/31/19. CONTINUE DRESSING CHANGE ORDERS TO LEFT FOOT DATED 06/02/19. CONTINUE HEEL RAISER PRO BOOTS. PARTIAL THICKNESS GUIDELINES TO RIGHT WRIST AND RIGHT POSTERIOR THIGH: CLEANSE WITH NSS APPLY SUREPREP AROUND THE WOUND ALLOW TO DRY APPLY HYDROGEL TO WOUND BED AND COVER WITH OPTIFOAM GENTLE. CHANGE EVERY 2 DAYS AND PRN SOILING.
--- NOTE | 2019-06-05 09:37 | NUR ---
PHYSICAL THERAPY PT evaluation attempted this date. Entered patient room. Patient initially agreeable to skilled PT evaluation. Patient oriented to person, place, and year. Following history questions, patient asking PT to "leave room immediately" and states that she "had a bad experience with therapy." PT left room due to patient request. PT evaluation not completed at this time. Patient planning to return to [facility] as LTC resident. Thank you. Daphney Mueller,PT,DPT
--- NOTE | 2019-06-05 09:58 | NUR ---
Nurse caring for patient was made aware of wound care orders needed and may refer to wound care note for recommendations.
--- NOTE | 2019-06-05 11:04 | NUR ---
Updated clinicals faxed to [facility] for review, patient is [facility] care an ok to return when stable.
[2019-06-05 12:00] VITALS: BP 155/81
--- NOTE | 2019-06-05 15:23 | NUR ---
case management was asked to call patient's daughter Mayda regarding discharge plans. Mayda stated her mom is a surgical corsetier resident at [facility] but she would like her moved to a nursing facility in [place] with her. Daughter stated she was unsure how to get her mom to [place]. case management informed her to talk with her mom and if she is in agreement with the move, then they would have to talk with social worker masters at [facility] to facilitate the transfer. also informed her that an ambulance would not transport her that far unless it was private pay and the patient and family would be responsible for transportation. Mayda stated she would start working on this process
--- NOTE | 2019-06-05 15:28 | NUR ---
SPOKE WITH PATIENT ABOUT REFUSING THERAPY TODAY, SHE VERSED SHE DOES NOT WANT ANY MALE STAFF, CALL PLACED TO THERAPY AND ADVISED CARTER Miranda THAT PATIENT DOESNT WANT MALES, SHE IS TO RELAY TO [facility].
[2019-06-05 16:00] VITALS: BP 166/74
--- NOTE | 2019-06-05 16:04 | NUR ---
Nursing screen received and chart reviewed. Patient was admitted for UTI and diabetic foot ulcers. Patient is a [facility] resident per chart review. If patient has a decline in ADLs, transfers, or functional mobility, please send OT orders. Thank you. Shima Rojas, OTR/L
[2019-06-05 20:00] VITALS: BP 170/71; BP 97/57
--- NOTE | 2019-06-05 23:57 | NUR ---
PATIENT REFUSING BIPAP
[2019-06-06] VITALS: BP 158/80; BP 176/75
[2019-06-06 06:14] LABS: BASO # 0.1 10*3/uL (0.0-0.1); BASO % 0.6 % (0.0-1.0); EOS # 0.5 10*3/uL (0.0-0.4); EOS % 4.2 % (1.0-4.0); HEMATOCRIT 30.8 % (37.0-47.0); HEMOGLOBIN 9.4 g/dl (12.0-16.0); LYMPH # 2.8 10*3/uL (1.3-4.4); LYMPH % 24.8 % (27.0-41.0); MEAN CORPUSCULAR HGB 26.6 pg (27.0-31.0); MEAN CORPUSCULAR HGB CONC 30.5 g/dl (33.0-37.0); MEAN PLATELET VOLUME 9.5 fl (9.6-12.3); MONO # 0.9 10*3/uL (0.1-1.0); MONO % 7.8 % (3.0-9.0); NEUT # 6.8 10*3/uL (2.3-7.9); NEUT % 60.4 % (47.0-73.0); PLATELET COUNT AUTOMATED 582 10*3/uL (130-400); RED BLOOD COUNT 3.54 10*6/uL (4.10-5.10); RED CELL DISTRI WIDTH 14.6 % (0-14.5); WHITE BLOOD COUNT 11.3 10*3/uL (4.8-10.8)
[2019-06-06 06:34] LABS: ALBUMIN 1.9 gm/dl (3.1-4.5); BUN 20 mg/dl (7-24); CHLORIDE 101 mmol/L (98-107); CREATININE 0.89 mg/dL (0.55-1.02); POTASSIUM 3.6 mmol/L (3.5-5.1); SGOT/AST 23 IU/L (3-35); SGPT/ALT 34 U/L (12-78); SODIUM 136 mmol/L (136-145)
[2019-06-06 06:35] LABS: ALKALINE PHOSPHATASE 70 U/L (45-117); TOTAL PROTEIN 7.5 gm/dL (6.4-8.2)
--- NOTE | 2019-06-06 07:00 | NUR ---
ARRIVED ON SHIFT, PATIENT SLEEPING, BED IN LOW POSITION, WHEEL LOCKS ENGAGED, BED ALARM ON SR UP X 2, CALL LIGHT WITHIN REACH, O2 ON, NO APPARENT DISTRESS, WHITE BOARD UPDATED.
--- NOTE | 2019-06-06 07:53 | NUR ---
Shift chart check completed.
[2019-06-06 08:00] VITALS: BP 175/75
--- NOTE | 2019-06-06 11:00 | NUR ---
PHYSICAL THERAPY Physical therapy evaluation attempted this date. Patient requested to return this date without male college sports assistant. Patient oriented to person, place, year this date. When asked if patient would be willing to participate in skilled PT evaluation, patient reports, "I really do not want to." When explanation given that we would assess LE strength, bed mobility, and sit EOB, patient reponded with, "Why? It is not necessary." PT asked patient if it would be okay to return at a later time/date to perform PT evaluation. Patient responds with, "No, I don't think so." Plan to discharge PT order at this time. Thank you. Daphney Mueller,PT,DPT.
[2019-06-06 12:00] VITALS: BP 146/71
[2019-06-06] MEDS ORDERED: MERREM IV1 GM IV (13:33)
--- NOTE | 2019-06-06 13:43 | NUR ---
Clinical updates faxed to [facility] for review. Contacted Mary and discussed IV Merepenum for 7 days. Because patient is intermediate frame tender they have to accept patient back with this medication. She is discussing the compensation administrator and checking with their pharmacy. She will let me know if they are able to get this med today.
--- NOTE | 2019-06-06 13:50 | NUR ---
AFTER [address] MIDLINE PT REFUSED ADDITIONAL ATTEMPTS AND ASKED TO "PLEASE STOP" THE PROCEDURE. GAVIN MCCLAIN RN.
--- NOTE | 2019-06-06 14:48 | NUR ---
Notified [facility] if patient is able to get midline in today, she will be discharged. [facility] stated that's fine they will take her tonight.
[2019-06-06 16:00] VITALS: BP 170/75
--- NOTE | 2019-06-06 17:16 | NUR ---
ADVISED DOCTOR NICHOLSON THAT MIDLINE WAS UNABLE TO BE PLACED.
--- NOTE | 2019-06-06 17:17 | NUR ---
UNSUCCESSFUL ATTEMPT AT MIDLINE.
[2019-06-06 20:00] VITALS: BP 168/78
--- NOTE | 2019-06-06 20:01 | NUR ---
CALLED. [facility] IS PLANNING TO PERFORM BEDSIDE WOUND DEBRIDEMENT TO L FOOT TOMORROW (Wednesday06/07/19). HE AND WILL BE PERFORMING PROCEDURE. AWARE PT FOR MIDLINE PLACEMENT, WITH NO SET TIME IN PLACE.
--- NOTE | 2019-06-06 20:29 | NUR ---
AT BEDSIDE TO PLACE MIDLINE.
--- NOTE | 2019-06-06 21:33 | NUR ---
LEFT 20G MIDLINE PLACED AFTER 2 ATTEMPTS. PATIENT TOLERATED PROCEDURE WELL.
--- NOTE | 2019-06-06 23:57 | NUR ---
PATIENT REFUSED BIPAP. CURRENTLY ON 2 L/M NC SPO2 95%
[2019-06-07 00:30] VITALS: BP 154/72
--- NOTE | 2019-06-07 04:01 | NUR ---
PRE-DEBRIDEMENT PHOTOS TAKEN AT THIS TIME OF L FOOT. L FOOT WOUND DRESSING CHANGED PER ORDER. WOUND DRESSINGS TO R WRIST AND R POSTERIOR HIP ALSO CHANGED PER ORDERS. PT TOLERATED WELL. BED LEFT LOCKED IN LOW POSITION, BED ALARM INTACT, CALL LIGHT IN REACH.
[2019-06-07 06:20] LABS: BASO # 0.1 10*3/uL (0.0-0.1); BASO % 0.5 % (0.0-1.0); EOS # 0.5 10*3/uL (0.0-0.4); EOS % 4.1 % (1.0-4.0); HEMATOCRIT 32.5 % (37.0-47.0); HEMOGLOBIN 9.7 g/dl (12.0-16.0); LYMPH % 23.5 % (27.0-41.0); MEAN CELL VOLUME 87.1 fl (81.0-99.0); MEAN CORPUSCULAR HGB CONC 29.8 g/dl (33.0-37.0); MEAN PLATELET VOLUME 9.3 fl (9.6-12.3); MONO # 0.9 10*3/uL (0.1-1.0); MONO % 6.9 % (3.0-9.0); NEUT # 8.2 10*3/uL (2.3-7.9); NEUT % 63.5 % (47.0-73.0); PLATELET COUNT AUTOMATED 590 10*3/uL (130-400); RED BLOOD COUNT 3.73 10*6/uL (4.10-5.10); RED CELL DISTRI WIDTH 14.6 % (0-14.5); WHITE BLOOD COUNT 12.8 10*3/uL (4.8-10.8)
--- NOTE | 2019-06-07 06:45 | NUR ---
CALLED. STATES THEY WILL NEED WOUND VAC ON STANDBY. WILL PLACE ORDERS FOR SETTINGS ONCE HE ARRIVES TO FACILITY. REQUESTING SMALL BLACK FOAM. SHIFT DIRECTOR NOTIFIED.
[2019-06-07 06:53] LABS: BUN 20 mg/dl (7-24); CREATININE 0.84 mg/dL (0.55-1.02)
--- NOTE | 2019-06-07 07:10 | NUR ---
pt not on bipap at this time
[2019-06-07 08:00] VITALS: BP 146/64
[2019-06-07 12:00] VITALS: BP 155/75
--- NOTE | 2019-06-07 12:00 | NUR ---
Contacted [facility] and faxed wound vac orders. Notified facility to order wound vac, will notify hospital when it arrives.
--- NOTE | 2019-06-07 12:27 | NUR ---
Mary from [facility] stating they should have the patients wound vac by tomorrow 06/08/19. She will notify case management when it arrives so patient can be discharged.
[2019-06-07 16:00] VITALS: BP 149/65
[2019-06-07 20:00] VITALS: BP 141/56
[2019-06-08] VITALS: BP 156/67
--- NOTE | 2019-06-08 02:38 | NUR ---
24 HR chart check completed.
--- NOTE | 2019-06-08 03:54 | NUR ---
Upon discharge recommend patient to follow up for wound care in outpatient setting continue current wound care orders at discharging facility.
[2019-06-08 06:34] LABS: BASO # 0.1 10*3/uL (0.0-0.1); BASO % 0.4 % (0.0-1.0); EOS # 0.5 10*3/uL (0.0-0.4); EOS % 3.7 % (1.0-4.0); HEMOGLOBIN 9.5 g/dl (12.0-16.0); LYMPH # 2.7 10*3/uL (1.3-4.4); LYMPH % 18.8 % (27.0-41.0); MEAN CELL VOLUME 86.3 fl (81.0-99.0); MEAN CORPUSCULAR HGB 25.6 pg (27.0-31.0); MEAN CORPUSCULAR HGB CONC 29.7 g/dl (33.0-37.0); MEAN PLATELET VOLUME 9.4 fl (9.6-12.3); MONO % 6.7 % (3.0-9.0); NEUT # 9.9 10*3/uL (2.3-7.9); NEUT % 69.6 % (47.0-73.0); PLATELET COUNT AUTOMATED 607 10*3/uL (130-400); RED BLOOD COUNT 3.71 10*6/uL (4.10-5.10); RED CELL DISTRI WIDTH 14.8 % (0-14.5); WHITE BLOOD COUNT 14.2 10*3/uL (4.8-10.8)
[2019-06-08 06:55] LABS: BUN 18 mg/dl (7-24); CHLORIDE 102 mmol/L (98-107); CREATININE 0.76 mg/dL (0.55-1.02); POTASSIUM 3.8 mmol/L (3.5-5.1); SODIUM 137 mmol/L (136-145)
[2019-06-08 08:00] VITALS: BP 160/70
[2019-06-08 12:00] VITALS: BP 152/68
[2019-06-08] MEDS ORDERED: CARVEDILOL6.25 MG PO (12:08)
[2019-06-08] MEDS ORDERED: HYDROCODON-ACET15 ML PO (12:08)
[2019-06-08] MEDS ORDERED: GABAPENTIN600 MG PO (12:08)
--- NOTE | 2019-06-08 12:57 | NUR ---
Patient is discharged to [facility] via [facility] @ [phone]. DC information faxed, , nursing/eagle fidel and daughter all notified.
--- NOTE | 2019-06-08 13:19 | NUR ---
REPORT CALLED TO TROY AT [facility]
--- NOTE | 2019-06-08 13:20 | NUR ---
ATTEMPTED TO NOTIFY DAUGHTER OF PT DISCHARGE, NO ANSWER BUT MESSAGE WAS LEFT.
--- NOTE | 2019-06-08 15:46 | NUR ---
PT DISCHARGED AT THIS TIME. HEART MONITOR REMOVED AND RETURNED TO FLOOR. IV TO RIGHT ARM REMOVED AND PRESSURE DRESSING APPLIED. LEFT ARM MIDLINE REMAINS FOR ATB AT [facility]. FRANCO REMOVED. PT TAKEN TO [facility] VIA [facility].
== END 2019-06-08 17:48 | DRG 871 ==
LOC: ED 19:47 → EDHOLD 21:50 → ICCU 21:50 → 4E 21:50 → ICCU 05-29 09:12 → 4E 06-04 04:32
PROVIDERS: Emergency Medicine Emergency Medical Services; Family Medicine; Internal Medicine; Internal Medicine Critical Care Medicine; Student in an Organized Health Care Education/Training Program; ADMIT Internal Medicine
PROC: 0BH18EZ Insertion of Endotracheal Airway into Trachea, Via Natural or Artificial Opening Endoscopic (ICD-10-PCS; 2019-05-30)
PROC: 5A1945Z Respiratory Ventilation, 24-96 Consecutive Hours (ICD-10-PCS; 2019-05-30)
PROC: 0BC68ZZ Extirpation of Matter from Right Lower Lobe Bronchus, Via Natural or Artificial Opening Endoscopic (ICD-10-PCS; 2019-05-31)
PROC: 0BC18ZZ Extirpation of Matter from Trachea, Via Natural or Artificial Opening Endoscopic (ICD-10-PCS; 2019-05-31)
PROC: 0BC98ZZ Extirpation of Matter from Lingula Bronchus, Via Natural or Artificial Opening Endoscopic (ICD-10-PCS; 2019-05-31)
PROC: 0BC58ZZ Extirpation of Matter from Right Middle Lobe Bronchus, Via Natural or Artificial Opening Endoscopic (ICD-10-PCS; 2019-05-31)
PROC: 0BC48ZZ Extirpation of Matter from Right Upper Lobe Bronchus, Via Natural or Artificial Opening Endoscopic (ICD-10-PCS; 2019-05-31)
PROC: 0BCB8ZZ Extirpation of Matter from Left Lower Lobe Bronchus, Via Natural or Artificial Opening Endoscopic (ICD-10-PCS; 2019-05-31)
PROC: 0B9J8ZX Drainage of Left Lower Lung Lobe, Via Natural or Artificial Opening Endoscopic, Diagnostic (ICD-10-PCS; 2019-05-31)
PROC: 0BC88ZZ Extirpation of Matter from Left Upper Lobe Bronchus, Via Natural or Artificial Opening Endoscopic (ICD-10-PCS; 2019-05-31)
PROC: 5A09357 Assistance with Respiratory Ventilation, Less than 24 Consecutive Hours, Continuous Positive Airway Pressure (ICD-10-PCS; principal; 2019-06-01)
PROC: 5A09357 Assistance with Respiratory Ventilation, Less than 24 Consecutive Hours, Continuous Positive Airway Pressure (ICD-10-PCS; 2019-06-03)
PROC: 5A09357 Assistance with Respiratory Ventilation, Less than 24 Consecutive Hours, Continuous Positive Airway Pressure (ICD-10-PCS; 2019-06-05)
DX: A41.9 Sepsis, unspecified organism (principal); G93.41 Metabolic encephalopathy; E43 Unspecified severe protein-calorie malnutrition; N17.0 Acute kidney failure with tubular necrosis; J96.01 Acute respiratory failure with hypoxia; N39.0 Urinary tract infection, site not specified; E87.1 Hypo-osmolality and hyponatremia; Z68.42 Body mass index [BMI] 45.0-49.9, adult; I13.0 Hypertensive heart and chronic kidney disease with heart failure and stage 1 through stage 4 chronic kidney disease, or unspecified chronic kidney disease; E11.621 Type 2 diabetes mellitus with foot ulcer; L97.509 Non-pressure chronic ulcer of other part of unspecified foot with unspecified severity; E83.39 Other disorders of phosphorus metabolism; R31.9 Hematuria, unspecified; L30.4 Erythema intertrigo; R74.0 Nonspecific elevation of levels of transaminase and lactic acid dehydrogenase [LDH]; E78.5 Hyperlipidemia, unspecified; E11.42 Type 2 diabetes mellitus with diabetic polyneuropathy; E03.9 Hypothyroidism, unspecified; N32.81 Overactive bladder; G47.00 Insomnia, unspecified; F32.9 Major depressive disorder, single episode, unspecified; M21.379 Foot drop, unspecified foot; N18.3 Chronic kidney disease, stage 3 (moderate); R26.2 Difficulty in walking, not elsewhere classified; R65.20 Severe sepsis without septic shock; D64.9 Anemia, unspecified; I50.9 Heart failure, unspecified; D47.3 Essential (hemorrhagic) thrombocythemia; G89.29 Other chronic pain; B96.1 Klebsiella pneumoniae [K. pneumoniae] as the cause of diseases classified elsewhere; B96.89 Other specified bacterial agents as the cause of diseases classified elsewhere; Z96.652 Presence of left artificial knee joint; F17.210 Nicotine dependence, cigarettes, uncomplicated; E66.01 Morbid (severe) obesity due to excess calories; E11.65 Type 2 diabetes mellitus with hyperglycemia; S90.922A Unspecified superficial injury of left foot, initial encounter; B96.4 Proteus (mirabilis) (morganii) as the cause of diseases classified elsewhere; X58.XXXA Exposure to other specified factors, initial encounter; Y93.89 Activity, other specified; Z98.51 Tubal ligation status; Z79.899 Other long term (current) drug therapy; Z79.82 Long term (current) use of aspirin; Z90.710 Acquired absence of both cervix and uterus; Y92.89 Other specified places as the place of occurrence of the external cause; Y99.8 Other external cause status

== ENCOUNTER 2019-06-11 19:20 | Inpatient (IN) | payer MEDICARE ==
[2019-06-11] VITALS (9 sets, daily range): BP systolic 155–197; BP diastolic 59–73
[~2019-06-11] VITALS: Ht 167.6 cm; Wt 130.0 kg
[~2019-06-11 19:20] MED LIST changes: +ABILIFY2 MG PO; +AMBIEN5 MG PO; +CARVEDILOL6.25 MG PO; +CRANBERRY200 MG PO; +CYMBALTA30 MG PO; +FLORASTOR250 MG PO; +GLIMEPIRIDE2 MG PO; +GLUCOPHAGE1000 MG PO; +HUMALOG100 UNIT/2 SC; +HYDROCODON-ACET15 ML PO; +LANTUS SOL100 UNIT/1 IM; +MERREM IV1 GM IV; +OXYBUTYNIN10 MG PO; +STOOL SOFTENER240 M2 PO
--- NOTE | 2019-06-11 22:45 | NUR ---
A 79, admitted to , under the services of SAY Cárdenas DO with a diagnosis of CHF/ACCELERATED HYPERTENSION. Chief complaint is SHORTNESS OF BREATH. Patient arrived via bed from ER. Monitor applied. Initial assessment completed. Vital signs taken and recorded. SAY CÁRDENAS DO notified of admission to the unit. Orders received. See assessment for past medical history, medications and allergies. Patient and/or family oriented to unit. [facility]. Clothing/patient valuable form completed. JOSE HULL
--- NOTE | 2019-06-11 23:00 | NUR ---
NURSE TO NURSE REPORT PROVIDED TO [facility] AT [facility] AT THIS TIME. PT'S WOUND VAC REMOVED DIRECTED BY MARJORIE KIDD, SHIFT DIRECTOR. WOUND VAC CLEANED AND PLACED IN MED ROOM IN ED. PER AMI AT [facility] A STAFF MEMBER WILL BE TO ED TO PICK IT UP "TONIGHT OR TOMORROW"
[2019-06-11] MEDS ORDERED: NORCO 5-325 TA1 EACH PO (23:24)
[2019-06-11] MEDS ORDERED: LEVOTHYROXINE175 MCG PO (23:26)
[2019-06-11] MEDS ORDERED: MERREM IV1 GM IV (23:29)
[2019-06-11] MEDS ORDERED: Saline Flush Syr5 ML IV (23:31)
[2019-06-11] MEDS ORDERED: XOPENEX0.31 MG/3 NEB (23:31)
[2019-06-11] MEDS ORDERED: HEP LOCK F IV (23:33)
--- NOTE | 2019-06-11 23:33 | NUR ---
MED REC UPDATED PER LIST PROVIDED BY [facility]
[2019-06-12] VITALS: BP 155/71
--- NOTE | 2019-06-12 00:31 | NUR ---
ATTEMPTED TO RECHECK PATIENTS BLOOD PRESSURE MANUALLY. PATIENT REFUSING. STATES "STOP IT NOW OR ILL SCREAM" NOTIFIED DR. GA. WILL CONTINUE TO MONITOR.
--- NOTE | 2019-06-12 04:10 | NUR ---
PATIENT REFUSING LAB WORK AT THIS TIME.
--- NOTE | 2019-06-12 05:28 | NUR ---
ZORAIDA WOODARD [id number] Please refer to the physician's history and physical for past medical history, comorbid conditions, and allergies. Diagnosis: ACCELERATED HYPERTENSION CHF Bruce Score: , WOUND DESCRIPTIONS: Wound Number: 1 Location of the wound: left foot Type of wound: surgical Thickness: Full Size: 3.1cm x 2.4cm x 0.1cm Tunneling: none Undermining: none Sinus Tract: none Presence of Exudate: Serosanguineous Amount: Light Color: Red, yellow Odor: None Periwound Skin Appearance: Normal Wound edges: approximated Pain (associated with wound): none at time of assessment How does patient state this happened? pt stated this has been going on for a couple of weeks and had surgery here during her previous stay Wound Number: 2 Location of the wound: left forearm Type of wound: scab Thickness: Partial Size: 0.9cm x 0.9cm x <0.1cm Tunneling: none Undermining: none Sinus Tract: none Presence of Exudate: none Amount: None Color: Red Odor: None Periwound Skin Appearance: Normal Wound edges: approximated Pain (associated with wound): none at time of assessment How does patient state this happened? pt unsure how this happened Wound Number: 3 Location of the wound: coccyx Type of wound: stage 2 Thickness: Partial Size: 3.3cm x 0.6cm x 0.1cm Tunneling: none Undermining: none Sinus Tract: none Presence of Exudate: Serosanguineous Amount: Light Color: Red Odor: None Periwound Skin Appearance: Normal Wound edges: approximated Pain (associated with wound): none at time of assessment How does patient state this happened? pt unable to state how this happened Surface the patient is resting on: Position Pro SKIN PREVENTION RECOMMENDATION: 1. Pressure redistribution support surface as appropriate 2. Elevate heels 3. Remove boots/TEDS every shift and reapply 4. Head of bed 30 degrees as tolerated 5. Assess nutrition and hydration 6. Manage moisture 7. Avoid the use of containment devices while in bed 8. Use absorptive products on surfaces limit layers of linens on bed 9. Turn and reposition every 1-2 hours in bed and every 1 hour in chair as tolerated 10. Weight shifts every 15 minutes while up in chair 11. Offloading with pillows or device to keep heels elevated off bed 12. Monitor skin at least every shift 13. Inspect under medical devices twice a day WOUND TREATMENT RECOMMENDATIONS: wheelchair cushion when oob heel raiser pro boots to bilateral feet while in bed Consult podiatry known patient to them and they did surgery last admission and had wound vac placed orders from [facility] states cleanse left foot with nss apply skin prep to surrounding skin, then foam and dressing @ 200mmHg, continuous change 3x/week with shower on shift and prn. monitor dressing and pump intact and funtioning every shift. nwb to left foot. Doesn't state type of foam or intensity please clarify with podiatry Partial thickness guidelines: Cleanse left forearm with nss and apply sureprep around the wound hydrogel to wound bed and cover with optifoam gentle every 2 days and prn for soiling Stage 2 guidelines: Cleanse coccyx with nss and apply sureprep around the wound hydrogel to wound bed and cover with optifoam gentle every 2 days and prn for soiling.
--- NOTE | 2019-06-12 06:20 | NUR ---
This nurse along with nurse caring for patient Evelyn RAMIREZ refused other wound care photographs at time of assessment.
--- NOTE | 2019-06-12 06:53 | NUR ---
WET TO DRY DRESSING PLACED ON LEFT FOOT
[2019-06-12 07:00] LABS: BASO # 0.1 10*3/uL (0.0-0.1); BASO % 0.4 % (0.0-1.0); EOS # 0.6 10*3/uL (0.0-0.4); EOS % 4.5 % (1.0-4.0); HEMATOCRIT 32.4 % (37.0-47.0); HEMOGLOBIN 9.5 g/dl (12.0-16.0); LYMPH # 3.7 10*3/uL (1.3-4.4); LYMPH % 28.8 % (27.0-41.0); MEAN CELL VOLUME 87.8 fl (81.0-99.0); MEAN CORPUSCULAR HGB 25.7 pg (27.0-31.0); MEAN CORPUSCULAR HGB CONC 29.3 g/dl (33.0-37.0); MEAN PLATELET VOLUME 9.5 fl (9.6-12.3); MONO # 0.7 10*3/uL (0.1-1.0); MONO % 5.5 % (3.0-9.0); NEUT # 7.8 10*3/uL (2.3-7.9); NEUT % 60.5 % (47.0-73.0); PLATELET COUNT AUTOMATED 504 10*3/uL (130-400); RED BLOOD COUNT 3.69 10*6/uL (4.10-5.10); RED CELL DISTRI WIDTH 15.5 % (0-14.5); WHITE BLOOD COUNT 12.8 10*3/uL (4.8-10.8)
[2019-06-12 07:03] LABS: ACT PARTIAL THROMBO TIME 30.3 SECONDS (20.0-32.1); INTERNATIONAL NORM RATIO 1.1 (2.0-3.5)
[2019-06-12 07:09] LABS: BUN 18 mg/dl (7-24); CHLORIDE 99 mmol/L (98-107); CHOLESTEROL 120 mg/dL (<200); CREATININE 0.81 mg/dL (0.55-1.02); FREE T4 1.26 ng/dl (0.76-1.46); HDL CHOLESTEROL 33 mg/dl (40-60); LDL CHOLESTEROL 47 mg/dL (9-159); PHOSPHOROUS 3.5 mg/dL (2.5-4.9); POTASSIUM 4.4 mmol/L (3.5-5.1); SODIUM 138 mmol/L (136-145); TRIGLYCERIDES 201 mg/dl (<150); VLDL CHOLESTEROL 40 mg/dL (6-40)
[2019-06-12 08:00] VITALS: BP 152/60
--- NOTE | 2019-06-12 08:18 | NUR ---
PHYSICAL THERAPY Screen recievd pt admitted with fever and acute on chronic CHF. Pt is resident of [facility]. Please consult PT if pt has a decline in functional status from baseline, thank you. Rocio Llamas PT
--- NOTE | 2019-06-12 08:18 | NUR ---
Nursing screen received and chart reviewed. Patient admitted 3 days after d/c from [facility] with CHF and accelerated hypertension. Patient refusing blood pressure taken and refusing lab work. Patient has a wound vac to her left foot. Patient has refused PT during her last admission. At this time no OT indicated d/t patients refusals for care. THank you. Mary Jo Bradley OTR/L
--- NOTE | 2019-06-12 08:52 | NUR ---
Dr. Erickson notified of wound care recommendations.
--- NOTE | 2019-06-12 09:13 | NUR ---
Dr. Segovia notified of wound care recommendations
--- NOTE | 2019-06-12 09:16 | NUR ---
PT MEDICATED WITH PO NORCO PER PRN ORDER FOR C/O LEFT FOOT PAIN. RATES PAIN 10/10. WET TO DRY DRESSING D/I. PT HAD WOUND VAC PRIOR. WILL MONITOR EFFECTIVENESS.
--- NOTE | 2019-06-12 09:28 | NUR ---
PT REFUSING 10 AM MEDS. PATIENT STATES SHE WANTS TO GO BACK TO [facility]. WILL TRY AGAIN SHORTLY.
--- NOTE | 2019-06-12 10:30 | NUR ---
PATIENT REFUSING WOUND CARE TREATMENT TO LEFT FOREARM AND COCCYX. DRESSING TO LEFT FOOT HANDLED BY PODIATRY.
--- NOTE | 2019-06-12 11:11 | NUR ---
[employer] faxed updates to [facility] on this date as patient is LTC there. [employer] will continue to follow and address issues as they arise.
--- NOTE | 2019-06-12 11:19 | NUR ---
CALLED AT THIS TIME REGARDING FRANCO REMOVAL. FRANCO TO BE REMOVED.
--- NOTE | 2019-06-12 11:53 | NUR ---
FRANCO REMOVED. PT TOLERATED WELL. PT EAGER FOR DISCHARGE. WILL CONTINUE TO MONITOR.
[2019-06-12 12:00] VITALS: BP 156/68
--- NOTE | 2019-06-12 13:39 | NUR ---
Gravel Roofer in to talk to patient. Patient states lives at [facility] with skilled staff. There are 0 steps in the home. Physician: [facility] Pharmacy: [facility] Home health services: None Patient's level of ADLs: MODERATE ASSIST Patient has working utilities: yes DME: skilled facility Follow-up physician's appointment after d/c: yes Does patient want to access PORTAL?: no Discharge plan for patient is discharge back to exterminator helper care at [facility]. ANIBAL DYE
--- NOTE | 2019-06-12 13:41 | NUR ---
'S RESIDENT NOTIFIED OF CONSULT.
--- NOTE | 2019-06-12 15:53 | NUR ---
BILATERAL TUBI-HALAL MEAT PACKER APPLIED TO LEGS PER ORDER.
[2019-06-12 16:00] VITALS: BP 169/47
--- NOTE | 2019-06-12 17:06 | NUR ---
[facility] CALLED AT THIS TIME REGARDING DISCHARGE BACK TO FACILITY. WAITING RETURN PHONE CALL FROM [facility].
--- NOTE | 2019-06-12 17:34 | NUR ---
[facility] OKAY FOR PATIENT TO RETURN TODAY. NOTIFIED AT THIS TIME REGARDING DISCHARGE ORDER.
--- NOTE | 2019-06-12 17:39 | NUR ---
PT REFUSING DISCHARGE PHOTOS.
--- NOTE | 2019-06-12 18:03 | NUR ---
FAMILY NOTIFIED REGARDING DISCHARGE.
[2019-06-12 20:00] VITALS: BP 155/66
--- NOTE | 2019-06-12 21:11 | NUR ---
[facility] HERE TO PICK PATIENT UP. PATIENT LEFT WITH ALL BELONGINGS. Discharge instructions reviewed with patient/family. Patient receptive and verbalizes understanding. Follow-up care arranged. Written instructions given to patient/family. ÓSCAR ANG
== END 2019-06-12 21:10 | DRG 291 ==
LOC: ED 19:20 → EDHOLD 21:17 → 4E 21:17
PROVIDERS: Internal Medicine; ADMIT Internal Medicine
PROC: 5A09357 Assistance with Respiratory Ventilation, Less than 24 Consecutive Hours, Continuous Positive Airway Pressure (ICD-10-PCS; principal; 2019-06-12)
DX: I13.0 Hypertensive heart and chronic kidney disease with heart failure and stage 1 through stage 4 chronic kidney disease, or unspecified chronic kidney disease (principal); I50.33 Acute on chronic diastolic (congestive) heart failure; E43 Unspecified severe protein-calorie malnutrition; Z68.42 Body mass index [BMI] 45.0-49.9, adult; L97.429 Non-pressure chronic ulcer of left heel and midfoot with unspecified severity; D47.3 Essential (hemorrhagic) thrombocythemia; E11.621 Type 2 diabetes mellitus with foot ulcer; D64.9 Anemia, unspecified; E78.5 Hyperlipidemia, unspecified; E11.42 Type 2 diabetes mellitus with diabetic polyneuropathy; E11.22 Type 2 diabetes mellitus with diabetic chronic kidney disease; E03.9 Hypothyroidism, unspecified; E11.65 Type 2 diabetes mellitus with hyperglycemia; N32.81 Overactive bladder; G47.00 Insomnia, unspecified; F32.9 Major depressive disorder, single episode, unspecified; G89.29 Other chronic pain; E55.9 Vitamin D deficiency, unspecified; K59.00 Constipation, unspecified; G25.81 Restless legs syndrome; E66.01 Morbid (severe) obesity due to excess calories; N18.3 Chronic kidney disease, stage 3 (moderate); Z96.652 Presence of left artificial knee joint; S90.922A Unspecified superficial injury of left foot, initial encounter; X58.XXXA Exposure to other specified factors, initial encounter; Y93.89 Activity, other specified; Y92.89 Other specified places as the place of occurrence of the external cause; Y99.8 Other external cause status; Z87.891 Personal history of nicotine dependence; Z79.82 Long term (current) use of aspirin; Z79.899 Other long term (current) drug therapy; Z79.4 Long term (current) use of insulin; Z79.84 Long term (current) use of oral hypoglycemic drugs; Z90.710 Acquired absence of both cervix and uterus; Z98.51 Tubal ligation status

== ENCOUNTER 2019-08-28 13:53 | Inpatient (IN) | payer MEDICARE ==
[~2019-08-28] VITALS: Ht 167.6 cm; Wt 131.2 kg
[2019-08-28] VITALS (13 sets, daily range): BP systolic 115–159; BP diastolic 44–71
[~2019-08-28 13:53] MED LIST changes: +HEP LOCK F IV; +NORCO 5-325 TA1 EACH PO; +Saline Flush Syr5 ML IV; +XOPENEX0.31 MG/3 NEB
[2019-08-28 14:58] LABS: BASO # 0.1 10*3/uL (0.0-0.1); BASO % 0.4 % (0.0-1.0); EOS # 0.6 10*3/uL (0.0-0.4); EOS % 4.6 % (1.0-4.0); HEMATOCRIT 24.2 % (37.0-47.0); LYMPH # 3.6 10*3/uL (1.3-4.4); LYMPH % 25.7 % (27.0-41.0); MEAN CELL VOLUME 84.6 fl (81.0-99.0); MEAN CORPUSCULAR HGB 24.8 pg (27.0-31.0); MEAN CORPUSCULAR HGB CONC 29.3 g/dl (33.0-37.0); MEAN PLATELET VOLUME 9.6 fl (9.6-12.3); MONO # 0.7 10*3/uL (0.1-1.0); MONO % 4.6 % (3.0-9.0); NEUT # 8.9 10*3/uL (2.3-7.9); PLATELET COUNT AUTOMATED 519 10*3/uL (130-400); RED BLOOD COUNT 2.86 10*6/uL (4.10-5.10)
[2019-08-28 15:12] LABS: ACT PARTIAL THROMBO TIME 25.8 SECONDS (20.0-32.1)
[2019-08-28 15:17] LABS: ALBUMIN 2.6 gm/dl (3.1-4.5); ALKALINE PHOSPHATASE 84 U/L (45-117); BUN 19 mg/dl (7-24); CHLORIDE 103 mmol/L (98-107); CREATININE 1.23 mg/dL (0.55-1.02); IRON 23 ug/dL (50-170); LIPASE 15 U/L (73-393); POTASSIUM 4.3 mmol/L (3.5-5.1); SGOT/AST 8 IU/L (3-35); SGPT/ALT 13 U/L (12-78); SODIUM 136 mmol/L (136-145); TOTAL IRON BINDING CAPACITY 318 ug/dl (250-450); TOTAL PROTEIN 7.9 gm/dL (6.4-8.2); TROPONIN I < 0.015 ng/ml (<0.045)
[2019-08-28 15:59] LABS: BILIRUBIN NEGATIVE (NEGATIVE); BLOOD NEGATIVE (NEGATIVE); CLARITY SL CLOUDY (CLEAR); COLOR YELLOW (YELLOW); GLUCOSE NEGATIVE (NEGATIVE); KETONE NEGATIVE (NEGATIVE); LEUKO ESTERASE NEGATIVE (NEGATIVE); NITRITE NEGATIVE (NEGATIVE); UROBILINOGEN 0.2 E.U./dl (0.2-1.0)
[2019-08-28 16:00] LABS: BACTERIA TRACE; MUCOUS TRACE; RBC 0-2 rbc/hpf (0-2)
[2019-08-28] MEDS ORDERED: 'CLONIDINE0.1 MG PO (21:57)
[2019-08-28] MEDS ORDERED: COMBIVENT RESPIM4 GM INH (21:58)
[2019-08-29] VITALS (11 sets, daily range): BP systolic 132–162; BP diastolic 52–77
[2019-08-29 06:02] LABS: BASO # 0.1 10*3/uL (0.0-0.1); BASO % 0.4 % (0.0-1.0); EOS # 0.7 10*3/uL (0.0-0.4); EOS % 4.8 % (1.0-4.0); HEMATOCRIT 28.3 % (37.0-47.0); LYMPH # 3.5 10*3/uL (1.3-4.4); LYMPH % 24.8 % (27.0-41.0); MEAN CELL VOLUME 83.7 fl (81.0-99.0); MEAN CORPUSCULAR HGB 25.7 pg (27.0-31.0); MEAN CORPUSCULAR HGB CONC 30.7 g/dl (33.0-37.0); MEAN PLATELET VOLUME 9.3 fl (9.6-12.3); MONO # 0.8 10*3/uL (0.1-1.0); MONO % 5.8 % (3.0-9.0); NEUT % 63.3 % (47.0-73.0); PLATELET COUNT AUTOMATED 467 10*3/uL (130-400); RED BLOOD COUNT 3.38 10*6/uL (4.10-5.10); RED CELL DISTRI WIDTH 15.9 % (0-14.5); WHITE BLOOD COUNT 14.2 10*3/uL (4.8-10.8)
[2019-08-29 06:26] LABS: BUN 16 mg/dl (7-24); CHLORIDE 100 mmol/L (98-107); CHOLESTEROL 119 mg/dL (<200); CREATININE 1.04 mg/dL (0.55-1.02); POTASSIUM 3.8 mmol/L (3.5-5.1); SODIUM 135 mmol/L (136-145); TRIGLYCERIDES 154 mg/dl (<150); VLDL CHOLESTEROL 31 mg/dL (6-40)
[2019-08-29 06:36] LABS: HDL CHOLESTEROL 39 mg/dl (40-60); LDL CHOLESTEROL 49 mg/dL (9-159)
[2019-08-30] VITALS: BP 140/65
[2019-08-30 06:33] LABS: BASO # 0.1 10*3/uL (0.0-0.1); BASO % 0.5 % (0.0-1.0); EOS # 0.7 10*3/uL (0.0-0.4); EOS % 5.5 % (1.0-4.0); LYMPH # 3.2 10*3/uL (1.3-4.4); LYMPH % 24.6 % (27.0-41.0); MEAN CELL VOLUME 84.3 fl (81.0-99.0); MEAN CORPUSCULAR HGB 25.9 pg (27.0-31.0); MEAN CORPUSCULAR HGB CONC 30.7 g/dl (33.0-37.0); MEAN PLATELET VOLUME 9.2 fl (9.6-12.3); MONO # 0.8 10*3/uL (0.1-1.0); MONO % 6.2 % (3.0-9.0); NEUT % 62.6 % (47.0-73.0); PLATELET COUNT AUTOMATED 470 10*3/uL (130-400); RED BLOOD COUNT 3.44 10*6/uL (4.10-5.10); RED CELL DISTRI WIDTH 16.6 % (0-14.5); WHITE BLOOD COUNT 12.8 10*3/uL (4.8-10.8)
[2019-08-30 06:45] LABS: BUN 12 mg/dl (7-24); CHLORIDE 104 mmol/L (98-107); CREATININE 0.91 mg/dL (0.55-1.02); IRON 29 ug/dL (50-170); POTASSIUM 4.1 mmol/L (3.5-5.1); SODIUM 136 mmol/L (136-145); TOTAL IRON BINDING CAPACITY 281 ug/dl (250-450)
[2019-08-30 08:00] VITALS: BP 146/84
[2019-08-30 12:00] VITALS: BP 166/70
[2019-08-30 16:00] VITALS: BP 150/59
[2019-08-30 20:00] VITALS: BP 184/78
[2019-08-30 21:10] VITALS: BP 168/76
[2019-08-31] VITALS: BP 159/72
[2019-08-31 06:28] LABS: BASO # 0.1 10*3/uL (0.0-0.1); BASO % 0.6 % (0.0-1.0); EOS # 0.7 10*3/uL (0.0-0.4); EOS % 4.6 % (1.0-4.0); HEMATOCRIT 30.9 % (37.0-47.0); LYMPH # 3.5 10*3/uL (1.3-4.4); LYMPH % 24.4 % (27.0-41.0); MEAN CELL VOLUME 84.9 fl (81.0-99.0); MEAN CORPUSCULAR HGB 25.5 pg (27.0-31.0); MEAN CORPUSCULAR HGB CONC 30.1 g/dl (33.0-37.0); MEAN PLATELET VOLUME 9.1 fl (9.6-12.3); MONO # 0.9 10*3/uL (0.1-1.0); MONO % 6.5 % (3.0-9.0); NEUT # 9.2 10*3/uL (2.3-7.9); NEUT % 63.4 % (47.0-73.0); PLATELET COUNT AUTOMATED 508 10*3/uL (130-400); RED BLOOD COUNT 3.64 10*6/uL (4.10-5.10); RED CELL DISTRI WIDTH 16.9 % (0-14.5); WHITE BLOOD COUNT 14.4 10*3/uL (4.8-10.8)
[2019-08-31 08:00] VITALS: BP 181/67
== END 2019-08-31 11:35 | DRG 811 ==
LOC: ED 13:53 → 5E 19:29 → EDHOLD 19:29 → 5E 19:52
PROVIDERS: Emergency Medicine; Internal Medicine; ADMIT Family Medicine
PROC: 30233N1 Transfusion of Nonautologous Red Blood Cells into Peripheral Vein, Percutaneous Approach (ICD-10-PCS; principal; 2019-08-28)
DX: D64.9 Anemia, unspecified (principal); E43 Unspecified severe protein-calorie malnutrition; E87.2 Acidosis; L97.429 Non-pressure chronic ulcer of left heel and midfoot with unspecified severity; I13.0 Hypertensive heart and chronic kidney disease with heart failure and stage 1 through stage 4 chronic kidney disease, or unspecified chronic kidney disease; Z68.42 Body mass index [BMI] 45.0-49.9, adult; E11.621 Type 2 diabetes mellitus with foot ulcer; E11.65 Type 2 diabetes mellitus with hyperglycemia; E78.5 Hyperlipidemia, unspecified; E11.49 Type 2 diabetes mellitus with other diabetic neurological complication; E03.9 Hypothyroidism, unspecified; N32.81 Overactive bladder; G47.00 Insomnia, unspecified; F32.9 Major depressive disorder, single episode, unspecified; N18.3 Chronic kidney disease, stage 3 (moderate); G89.29 Other chronic pain; I50.9 Heart failure, unspecified; E55.9 Vitamin D deficiency, unspecified; K59.00 Constipation, unspecified; G25.81 Restless legs syndrome; E66.01 Morbid (severe) obesity due to excess calories; D47.3 Essential (hemorrhagic) thrombocythemia; E11.51 Type 2 diabetes mellitus with diabetic peripheral angiopathy without gangrene; R00.1 Bradycardia, unspecified; R79.82 Elevated C-reactive protein (CRP); Z96.652 Presence of left artificial knee joint; Z98.51 Tubal ligation status; Z87.891 Personal history of nicotine dependence; Z79.899 Other long term (current) drug therapy; Z79.4 Long term (current) use of insulin; Z79.82 Long term (current) use of aspirin; Z90.710 Acquired absence of both cervix and uterus; Z03.818 Encounter for observation for suspected exposure to other biological agents ruled out

== ENCOUNTER 2020-01-01 12:16 | Emergency (ER) | payer MEDICARE ==
[~2020-01-01 12:16] MED LIST changes: +'CLONIDINE0.1 MG PO; +COMBIVENT RESPIM4 GM INH
[2020-01-01 15:16] VITALS: BP 122/56
[2020-01-01 16:01] VITALS: BP 145/56
[2020-01-01 17:05] VITALS: BP 134/67
[2020-01-01 17:56] LABS: BASO % 0.3 % (0.0-1.0); EOS # 0.4 10*3/uL (0.0-0.4); EOS % 3.3 % (1.0-4.0); HEMATOCRIT 26.2 % (37.0-47.0); LYMPH # 3.1 10*3/uL (1.3-4.4); LYMPH % 23.8 % (27.0-41.0); MEAN CELL VOLUME 77.7 fl (81.0-99.0); MEAN CORPUSCULAR HGB 22.3 pg (27.0-31.0); MEAN CORPUSCULAR HGB CONC 28.6 g/dl (33.0-37.0); MEAN PLATELET VOLUME 8.5 fl (9.6-12.3); MONO # 0.7 10*3/uL (0.1-1.0); MONO % 5.1 % (3.0-9.0); NEUT # 8.8 10*3/uL (2.3-7.9); NEUT % 67.1 % (47.0-73.0); PLATELET COUNT AUTOMATED 450 10*3/uL (130-400); RED BLOOD COUNT 3.37 10*6/uL (4.10-5.10); RED CELL DISTRI WIDTH 17.5 % (0-14.5)
== END 2020-01-01 18:10 | disposition other institution (70) ==
LOC: ED 12:16
PROVIDERS: Family Medicine
DX: D64.9 Anemia, unspecified (principal); E11.9 Type 2 diabetes mellitus without complications; I10 Essential (primary) hypertension; E03.9 Hypothyroidism, unspecified; Z79.899 Other long term (current) drug therapy; Z79.82 Long term (current) use of aspirin; Z87.891 Personal history of nicotine dependence

== ENCOUNTER 2020-01-16 08:47 | Emergency (ER) | payer MEDICARE ==
[~2020-01-16] VITALS: Wt 102.1 kg
[2020-01-16 09:37] LABS: BASO # 0.1 10*3/uL (0.0-0.1); BASO % 0.3 % (0.0-1.0); EOS # 0.3 10*3/uL (0.0-0.4); EOS % 2.3 % (1.0-4.0); HEMATOCRIT 27.3 % (37.0-47.0); LYMPH # 3.2 10*3/uL (1.3-4.4); LYMPH % 22.2 % (27.0-41.0); MEAN CELL VOLUME 78.2 fl (81.0-99.0); MEAN CORPUSCULAR HGB 21.8 pg (27.0-31.0); MEAN CORPUSCULAR HGB CONC 27.8 g/dl (33.0-37.0); MEAN PLATELET VOLUME 8.4 fl (9.6-12.3); MONO # 0.7 10*3/uL (0.1-1.0); MONO % 4.7 % (3.0-9.0); NEUT # 10.2 10*3/uL (2.3-7.9); NEUT % 69.9 % (47.0-73.0); PLATELET COUNT AUTOMATED 559 10*3/uL (130-400); RED BLOOD COUNT 3.49 10*6/uL (4.10-5.10); RED CELL DISTRI WIDTH 19.5 % (0-14.5); WHITE BLOOD COUNT 14.6 10*3/uL (4.8-10.8)
[2020-01-16 09:54] LABS: ALBUMIN 2.5 gm/dl (3.1-4.5); CREATININE 1.09 mg/dL (0.55-1.02)
[2020-01-16 10:15] LABS: BILIRUBIN Negative (Negative); BLOOD 2+ (Negative); CLARITY Turbid (Clear); COLOR Yellow (Yellow); GLUCOSE Negative (Negative); KETONE Negative (Negative); LEUKO ESTERASE 3+ (Negative); NITRITE Negative (Negative); SPECIFIC GRAVITY 1.015 (1.001-1.030); UROBILINOGEN 0.2 E.U./dl (0.0-1.0)
[2020-01-16 10:26] LABS: BACTERIA 4+; WBC TNTC wbc/hpf (0-5)
[2020-01-16] MEDS ORDERED: SEPTDS PO (11:02)
[2020-02-24] MEDS ORDERED: CEFTRIAXONE1 GM IM (19:59)
== END 2020-01-16 12:07 | disposition other institution (70) ==
LOC: ED 08:47
PROVIDERS: Emergency Medicine
DX: N39.0 Urinary tract infection, site not specified (principal); F32.9 Major depressive disorder, single episode, unspecified; I10 Essential (primary) hypertension; F41.9 Anxiety disorder, unspecified; M19.90 Unspecified osteoarthritis, unspecified site; E11.40 Type 2 diabetes mellitus with diabetic neuropathy, unspecified; E03.9 Hypothyroidism, unspecified; Z79.899 Other long term (current) drug therapy; Z79.4 Long term (current) use of insulin; Z79.82 Long term (current) use of aspirin; Z98.51 Tubal ligation status; Z90.710 Acquired absence of both cervix and uterus; Z96.652 Presence of left artificial knee joint; Z87.891 Personal history of nicotine dependence

== ENCOUNTER 2020-01-29 11:12 | Emergency (ER) | payer MEDICARE ==
[~2020-01-29 11:12] MED LIST changes: +SEPTDS PO
[2020-01-29 13:08] VITALS: BP 141/87
[2020-02-24] MEDS ORDERED: CEFTRIAXONE1 GM IM (19:59)
== END 2020-01-29 15:34 ==
LOC: ED 11:12
DX: D64.9 Anemia, unspecified (principal)

== ENCOUNTER 2020-01-31 04:06 | Inpatient (IN) | payer MEDICARE ==
[~2020-01-31] VITALS: Ht 167.6 cm; Wt 136.1 kg
[2020-01-31] VITALS (7 sets, daily range): BP systolic 153–166; BP diastolic 58–75
[2020-01-31 05:23] LABS: ALBUMIN 2.7 gm/dl (3.1-4.5); ALKALINE PHOSPHATASE 109 U/L (45-117); BUN 19 mg/dl (7-24); CHLORIDE 99 mmol/L (98-107); CREATININE 1.02 mg/dL (0.55-1.02); LIPASE 18 U/L (73-393); POTASSIUM 4.5 mmol/L (3.5-5.1); SGOT/AST 12 IU/L (3-35); SGPT/ALT 16 U/L (12-78); SODIUM 139 mmol/L (136-145); TOTAL PROTEIN 8.6 gm/dL (6.4-8.2)
[2020-01-31 05:51] LABS: HEMATOCRIT 30.1 % (37.0-47.0); MEAN CELL VOLUME 78.2 fl (81.0-99.0); MEAN CORPUSCULAR HGB 22.3 pg (27.0-31.0); MEAN CORPUSCULAR HGB CONC 28.6 g/dl (33.0-37.0); PLATELET COUNT AUTOMATED 578 10*3/uL (130-400); RED BLOOD COUNT 3.85 10*6/uL (4.10-5.10); RED CELL DISTRI WIDTH 19.3 % (0-14.5); WHITE BLOOD COUNT 21.9 10*3/uL (4.8-10.8)
--- NOTE | 2020-01-31 06:00 | NUR ---
PT WITH WOUNDS TO BILATERAL FEET THAT WERE DRESSED YESTERDAY. PT REFUSED WOUND PICTURES
[2020-01-31 06:40] LABS: MICROCYTOSIS SLIGHT; PLATELET SUFFICIENCY HIGH (NORMAL); POLYCHROMASIA SLIGHT; TOTAL CELLS COUNTED 100 #CELLS
--- NOTE | 2020-01-31 08:40 | NUR ---
DR KUMAR NOTIFIED OF THE CONSULT, HOLD BLOOD THINNERS.
[2020-01-31 12:54] LABS: HEMATOCRIT 25.2 % (37.0-47.0)
[2020-01-31] MEDS ORDERED: CRANBERRY450 M2 PO (13:09)
[2020-01-31] MEDS ORDERED: BASAG SOL SC (13:11)
[2020-01-31] MEDS ORDERED: VITAMIN D3125 MC1 PO (13:12)
[2020-01-31] MEDS ORDERED: ZOLPIDEM TART5 MG PO (13:18)
[2020-01-31] MEDS ORDERED: ACETAMINOPHEN325 M2 PO (13:19)
[2020-01-31] MEDS ORDERED: CILOSTAZOL100 MG PO (13:21)
[2020-01-31] MEDS ORDERED: MILK OF MA400 MG/51 PO (13:24)
--- NOTE | 2020-01-31 13:29 | NUR ---
MED REC UPDATED VIA LIST FROM [facility]. DARLENE LEE NOTIFIED.
--- NOTE | 2020-01-31 14:08 | NUR ---
PT INCONTINENT FOR LARGE MUSHY DARK BROWN STOOL. PT CLEANED AND LINENS CHANGED, PT TOLERATED.
--- NOTE | 2020-01-31 14:11 | NUR ---
AWARE OF PODIATRY CONSULT.
--- NOTE | 2020-01-31 15:32 | NUR ---
DAUGHTER CALLED IN TO CHECK ON PATIENT AND STATES SHE WILL CALL BACK IN A FEW HOURS.
--- NOTE | 2020-01-31 19:52 | NUR ---
PT REPORT FROM PRIOR SHIFT RN
--- NOTE | 2020-01-31 21:06 | NUR ---
PT RESTING QUIETLY AT THIS TIME. NO DISTRESS. INFUSIONS INFUSING WITHOUT DIFFICULTY
--- NOTE | 2020-01-31 21:55 | NUR ---
PT RESTING QUIETLY. NO DISTRESS NOTED.
--- NOTE | 2020-01-31 23:56 | NUR ---
NURSE TO NURSE REPORT GIVEN TO THIS RN.INFUSION OF PROTONIX CONTINUES.
[2020-02-01] VITALS (14 sets, daily range): BP systolic 132–155; BP diastolic 41–75
--- NOTE | 2020-02-01 00:31 | NUR ---
PT REQUESTING DRINK OF WATER.PT NOTIFIED SHE IS UNABLE TO HAVE ANY FLUIDS AT THIS TIME.MOUTH SWAB PROVIDED.
--- NOTE | 2020-02-01 00:37 | NUR ---
WARM BLANKET PROVIDED.PT UPDATED ON CURRENT PLAN OF CARE.
[2020-02-01 02:23] LABS: MEAN CELL VOLUME 78.7 fl (81.0-99.0); MEAN CORPUSCULAR HGB 22.3 pg (27.0-31.0); MEAN CORPUSCULAR HGB CONC 28.3 g/dl (33.0-37.0); MEAN PLATELET VOLUME 8.7 fl (9.6-12.3); PLATELET COUNT AUTOMATED 435 10*3/uL (130-400); RED BLOOD COUNT 3.05 10*6/uL (4.10-5.10); RED CELL DISTRI WIDTH 19.6 % (0-14.5); WHITE BLOOD COUNT 14.5 10*3/uL (4.8-10.8)
--- NOTE | 2020-02-01 02:35 | NUR ---
RESIDENT JENNA CONTACTED AND ADVISED OF PT HEMOGLOBIN 6.8. ADVISED A TRANSFUSE ORDER WILL BE PLACED FOR 1 UNIT PRBC.
[2020-02-01 02:55] LABS: MICROCYTOSIS SLIGHT; PLATELET SUFFICIENCY HIGH (NORMAL); TOTAL CELLS COUNTED 100 #CELLS
--- NOTE | 2020-02-01 03:54 | NUR ---
THIS RN CONTACTED LAB REGARDING BLOOD FOR TRANSFUSION.ADVISED BLOOD IS READY.
--- NOTE | 2020-02-01 05:55 | NUR ---
INFUSION OF BLOOD TITRATED TO 150ML/HR.
--- NOTE | 2020-02-01 07:04 | NUR ---
MEDICATION OF NEURONTIN AND SYNTHROID NOT GIVEN DUT TO PT "NPO" STATUS.INFUSION OF PROTONIX INITIATED.BS 87.
--- NOTE | 2020-02-01 07:15 | NUR ---
PT IV IN RT HAND NOT INFUSING WELL.NO REDNESS NOTED.IV REMOVED INTACT.
--- NOTE | 2020-02-01 07:21 | NUR ---
BLOOD INFUSION TITRATED TO 240ML/HR.
--- NOTE | 2020-02-01 07:22 | NUR ---
RIGHT HAND IV REMOVED SITE SYMPTOMATIC. UNABLE TO OBTAIN NEW SITE. ANOTHER RN IN TO ATTEMPT OBTAINING LINE AND WAS UNSUCCESSFUL
--- NOTE | 2020-02-01 07:31 | NUR ---
PATIENT IS LTC AT [facility]. PATIENT CAN RETURN WHEN MEDICALLY STABLE.
[2020-02-01 08:53] LABS: BASO # 0.1 10*3/uL (0.0-0.1); BASO % 0.4 % (0.0-1.0); EOS # 0.5 10*3/uL (0.0-0.4); EOS % 2.8 % (1.0-4.0); HEMATOCRIT 28.7 % (37.0-47.0); MEAN CELL VOLUME 81.5 fl (81.0-99.0); MEAN CORPUSCULAR HGB 22.7 pg (27.0-31.0); MEAN CORPUSCULAR HGB CONC 27.9 g/dl (33.0-37.0); MEAN PLATELET VOLUME 8.6 fl (9.6-12.3); MONO # 0.8 10*3/uL (0.1-1.0); NEUT # 12.1 10*3/uL (2.3-7.9); NEUT % 73.3 % (47.0-73.0); PLATELET COUNT AUTOMATED 450 10*3/uL (130-400); RED BLOOD COUNT 3.52 10*6/uL (4.10-5.10); RED CELL DISTRI WIDTH 19.9 % (0-14.5); WHITE BLOOD COUNT 16.6 10*3/uL (4.8-10.8)
[2020-02-01 09:04] LABS: BUN 19 mg/dl (7-24); CHLORIDE 105 mmol/L (98-107); CREATININE 0.91 mg/dL (0.55-1.02); POTASSIUM 4.7 mmol/L (3.5-5.1); SODIUM 139 mmol/L (136-145)
--- NOTE | 2020-02-01 09:17 | NUR ---
PT C/O HUNGER.RESIDENT AWARE AND PT NPO AT THIS TIME.WILL NOTIFY DR CANCHOLA.---ARIC BRAN RN
--- NOTE | 2020-02-01 09:36 | NUR ---
DR CANCHOLA NOTIFIED AND CLEAR LIQUID DIET ORDERED FOR ONE TIME THEN BACK TO NPO--RAIC BRAN RN
--- NOTE | 2020-02-01 12:14 | NUR ---
Patient comes in from [facility], she's a exterminator helper termite resident. Updated clinicals faxed, patient can return when covid test results return and she is medically stable
--- NOTE | 2020-02-01 14:20 | NUR ---
A 79, admitted to , under the services of DOTTY Olivarez DO with a diagnosis of UPPER GI BLEED. Chief complaint is COFFEE GROUND EMESIS. Patient arrived via stretcher from ER. Monitor applied. Initial assessment completed. Vital signs taken and recorded. DOTTY OLIVAREZ DO notified of admission to the unit. Orders received. See assessment for past medical history, medications and allergies. Patient and/or family oriented to unit. [facility] visitation policy reviewed. Clothing/patient valuable form completed. MARJORIE SALEEM
--- NOTE | 2020-02-01 14:30 | NUR ---
PATIENT HAS PROTONIX GTT RUNNING. PATIENT WAS ALSO INCT FOR BM AND URINE.
--- NOTE | 2020-02-01 21:56 | NUR ---
DR WEST STATES PATIENT CAN TAKE SCHEDULED BEDTIME MEDICATION WITH SIPS OF WATER
[2020-02-02] VITALS: BP 151/69
[2020-02-02 07:09] LABS: BASO % 0.3 % (0.0-1.0); EOS # 0.5 10*3/uL (0.0-0.4); EOS % 3.5 % (1.0-4.0); HEMATOCRIT 25.6 % (37.0-47.0); LYMPH % 22.3 % (27.0-41.0); MEAN CORPUSCULAR HGB 23.2 pg (27.0-31.0); MEAN CORPUSCULAR HGB CONC 30.1 g/dl (33.0-37.0); MONO # 0.7 10*3/uL (0.1-1.0); MONO % 5.3 % (3.0-9.0); NEUT # 9.1 10*3/uL (2.3-7.9); NEUT % 68.1 % (47.0-73.0); PLATELET COUNT AUTOMATED 426 10*3/uL (130-400); RED BLOOD COUNT 3.32 10*6/uL (4.10-5.10); RED CELL DISTRI WIDTH 19.9 % (0-14.5); WHITE BLOOD COUNT 13.3 10*3/uL (4.8-10.8)
[2020-02-02 07:20] LABS: MEAN CELL VOLUME 77.1 fl (81.0-99.0)
[2020-02-02 08:00] VITALS: BP 155/62
--- NOTE | 2020-02-02 09:00 | NUR ---
CM in to see patient. She is a LTC resident at [facility]. She states she normally gets up and around in a wheelchair. She states she wears 4L nc at the [facility]. When medically stable she will be discharged to [facility]. marketing planner following for her return.
[2020-02-02 12:00] VITALS: BP 162/60; BP 179/67
[2020-02-02 20:00] VITALS: BP 147/56
--- NOTE | 2020-02-02 21:34 | NUR ---
PT RESTING IN BED. RESP-EASY AND REGULAR. BSG-165, SEE EMAR. OXYGEN IN USE. CALL LIGHT IN REACH. SEE SHIFT ASSESSMENT.
[2020-02-03] VITALS: BP 138/60
--- NOTE | 2020-02-03 04:40 | NUR ---
TOLERATED ROUTINE MED WITH NO PROBLEM. NO C/O AT THIS TIME. CALL LIGHT IN REACH.
--- NOTE | 2020-02-03 05:50 | NUR ---
SLEEPING IN BED, AWAKENS EASILY. TOLERATED ROUTINE MED WITH NO PROBLEM. NO C/O AT THIS TIME. CALL LIGHT IN REACH.
[2020-02-03 06:28] LABS: BASO # 0.1 10*3/uL (0.0-0.1); BASO % 0.4 % (0.0-1.0); EOS # 0.5 10*3/uL (0.0-0.4); EOS % 3.7 % (1.0-4.0); HEMATOCRIT 25.8 % (37.0-47.0); LYMPH # 2.4 10*3/uL (1.3-4.4); MEAN CELL VOLUME 79.9 fl (81.0-99.0); MEAN CORPUSCULAR HGB 23.2 pg (27.0-31.0); MEAN CORPUSCULAR HGB CONC 29.1 g/dl (33.0-37.0); MEAN PLATELET VOLUME 8.9 fl (9.6-12.3); MONO # 0.7 10*3/uL (0.1-1.0); MONO % 4.9 % (3.0-9.0); NEUT # 9.6 10*3/uL (2.3-7.9); NEUT % 72.2 % (47.0-73.0); PLATELET COUNT AUTOMATED 441 10*3/uL (130-400); RED BLOOD COUNT 3.23 10*6/uL (4.10-5.10); RED CELL DISTRI WIDTH 20.3 % (0-14.5); WHITE BLOOD COUNT 13.3 10*3/uL (4.8-10.8)
[2020-02-03 10:15] VITALS: BP 152/71
[2020-02-03 12:00] VITALS: BP 111/88
[2020-02-03 16:00] VITALS: BP 130/47
[2020-02-03 20:00] VITALS: BP 121/49
--- NOTE | 2020-02-03 23:01 | NUR ---
Pt was recd at 1900 shift change. Pt c/o pain rated a 5/10 on left leg given tylenol per emar. Pt did state that she has numbness and tingling in bilateral feet. Pt was incontinent of stool per CYBER OPS PLANNER. Abdomen is soft and obese, bowel sound hypoactive. Bed alarm on, bed in lowest position. will continue to monitor
[2020-02-04] VITALS: BP 142/51
--- NOTE | 2020-02-04 06:25 | NUR ---
Pt was given am meds. Pt denied any needs. Bed alarm on, bed in lowest position, and call stern within reach
[2020-02-04 08:05] VITALS: BP 138/64
[2020-02-04 08:17] LABS: BASO # 0.1 10*3/uL (0.0-0.1); BASO % 0.4 % (0.0-1.0); EOS # 0.6 10*3/uL (0.0-0.4); EOS % 4.1 % (1.0-4.0); HEMATOCRIT 24.9 % (37.0-47.0); LYMPH # 3.1 10*3/uL (1.3-4.4); LYMPH % 22.6 % (27.0-41.0); MEAN CELL VOLUME 80.3 fl (81.0-99.0); MEAN CORPUSCULAR HGB 22.9 pg (27.0-31.0); MEAN CORPUSCULAR HGB CONC 28.5 g/dl (33.0-37.0); MEAN PLATELET VOLUME 8.7 fl (9.6-12.3); MONO # 0.8 10*3/uL (0.1-1.0); MONO % 5.9 % (3.0-9.0); NEUT # 9.1 10*3/uL (2.3-7.9); NEUT % 66.5 % (47.0-73.0); PLATELET COUNT AUTOMATED 386 10*3/uL (130-400); RED CELL DISTRI WIDTH 20.5 % (0-14.5); WHITE BLOOD COUNT 13.7 10*3/uL (4.8-10.8)
--- NOTE | 2020-02-04 08:29 | NUR ---
CONSULT CALLED TO 'S OFFICE (ID) FOR OSTEOMYLITIUS. REP. STATED THAT THE RETURN PHONE CALL WILL BE FROM [facility]UARE[facility] IN[facility].
[2020-02-04 08:33] LABS: ALKALINE PHOSPHATASE 72 U/L (45-117); BUN 13 mg/dl (7-24); CHLORIDE 103 mmol/L (98-107); CREATININE 1.02 mg/dL (0.55-1.02); POTASSIUM 3.8 mmol/L (3.5-5.1); SGOT/AST 10 IU/L (3-35); SGPT/ALT 8 U/L (12-78); SODIUM 138 mmol/L (136-145); TOTAL PROTEIN 6.8 gm/dL (6.4-8.2)
--- NOTE | 2020-02-04 11:26 | NUR ---
Patient updated clinicals and negative covid results faxed to [facility] for review. patient is terminal gauger care and ok to return when medically stable for discharge.
[2020-02-04 12:58] VITALS: BP 122/58
[2020-02-04 16:00] VITALS: BP 120/46
[2020-02-04 16:56] VITALS: BP 120/46
--- NOTE | 2020-02-04 18:40 | NUR ---
SHELLFISH SHUCKER SPOKE WITH PT EARLIER THIS EVENING ABOUT HAVING SURGERY (I&D) TOMORROW TO LEFT FOOT. PT STATED THE DR HASN'T SPOKEN TO HER ABT THAT YET. SHELLFISH SHUCKER ASSURED PT WILL SPEAK WITH HER ABT. PT WILL BE NPO AFTER [place] TONIGHT FOR SURGERY TOMORROW. PRE-OP PAPERWORK INITIATED AND ON THE CHART.
[2020-02-04 20:00] VITALS: BP 115/53
--- NOTE | 2020-02-04 20:08 | NUR ---
Pt was recd at 1900 shift change. Pt is drowsy but awakens with light touch. Pt is oriented to place,self, year but thought it was February. Pt had her dinner tray in from of her had eaten 100%.Explained to pt that she will be NPO after midnight for I/d of left foot. Pt c/o pain in the left lower leg, rated a 4/10 was given Tylenol per Emar. Pt has a kerlix wrap to lle and has on the prevalon boots. Pulses weak in pedals. Pt has multiple skin tags and moles, nevi and raised lesions.Call stern and bedside table within reach and bed alarm is on. Bed alarm is on
[2020-02-05] VITALS: BP 140/60
--- NOTE | 2020-02-05 05:54 | NUR ---
Pt has been sleeping all night with no distress. Pt is npo and has been since midnight.Pt will be going to surgery today. Call stern, bedside table within reach. Bed in lowest position and alarm on
[2020-02-05 06:37] LABS: BASO % 0.3 % (0.0-1.0); EOS # 0.5 10*3/uL (0.0-0.4); EOS % 3.7 % (1.0-4.0); HEMATOCRIT 25.2 % (37.0-47.0); LYMPH % 23.1 % (27.0-41.0); MEAN CELL VOLUME 80.5 fl (81.0-99.0); MEAN CORPUSCULAR HGB CONC 28.6 g/dl (33.0-37.0); MEAN PLATELET VOLUME 8.9 fl (9.6-12.3); MONO # 0.9 10*3/uL (0.1-1.0); MONO % 6.5 % (3.0-9.0); NEUT # 8.6 10*3/uL (2.3-7.9); NEUT % 65.7 % (47.0-73.0); PLATELET COUNT AUTOMATED 414 10*3/uL (130-400); RED BLOOD COUNT 3.13 10*6/uL (4.10-5.10); RED CELL DISTRI WIDTH 20.5 % (0-14.5); WHITE BLOOD COUNT 13.1 10*3/uL (4.8-10.8)
--- NOTE | 2020-02-05 07:57 | NUR ---
keno writer/runner called AND SPOKE WITH DR. COLUMBA NAVARRO IN REGARDS TO CONSULT ORDERED. NO NEW PHONE ORDERS WERE GIVEN BUT IS AWARE.
[2020-02-05 08:08] VITALS: BP 133/56
--- NOTE | 2020-02-05 11:23 | NUR ---
PT HAS BEEN NPO THUS FAR FOR SURGERY TO LEFT LEG SCHEDULED TODAY AT 1400. PT HAS RECEIVED A BED BATH.
[2020-02-05 12:07] VITALS: BP 134/56
--- NOTE | 2020-02-05 13:17 | NUR ---
patient was scheduled for surgery today. she is a residential resident of [facility] and can return when discharged, case management will follow
--- NOTE | 2020-02-05 13:49 | NUR ---
PT LEFT VIA BED IN STABLE CONDITION AT APPROX. 1305 FOR SURGERY
[2020-02-05 16:02] VITALS: BP 146/67
--- NOTE | 2020-02-05 16:07 | NUR ---
PT RETURNED FROM SURGERY VIA BED AT 1548. PT AAOX4. PT NOW HAS A WOUND VAC TO HER LEFT LEG/FT WITH SEROSANGUINEOUS DRAINAGE NOTED. WOUND VAC SET AT 150 MM/HG. PT RT FT HAS A HEEL PROTECTOR ON IT. V/S WERE DONE AND CHARTED. PT WAS GIVEN A DIET GINGERALE TO DRINK. NO C/O PAIN AT THIS TIME, WILL CON'T TO MONITOR
[2020-02-05 20:00] VITALS: BP 148/72
--- NOTE | 2020-02-05 20:48 | NUR ---
Pt was recd at 1900 shift change is aox4. Pt has a wound vacg to LLE with carlos wrap. BLLE edema +2 and noted edema in hands l>r. Pt c/o pain a 5/10 was given Tylenol per emar. Call stern,bedside table within reach, bed in lowest position and bed alarm is on. Pt is o2 at 4l.No distress noted. Will continue to monitor.
[2020-02-06] VITALS: BP 135/63
--- NOTE | 2020-02-06 05:42 | NUR ---
Pt stated that she had pain in her left leg, was given prn tylenol per emar. 50mls of output in wound vac
[2020-02-06 06:50] LABS: BASO # 0.1 10*3/uL (0.0-0.1); BASO % 0.4 % (0.0-1.0); EOS # 0.5 10*3/uL (0.0-0.4); HEMATOCRIT 25.5 % (37.0-47.0); LYMPH # 2.7 10*3/uL (1.3-4.4); LYMPH % 20.2 % (27.0-41.0); MEAN CELL VOLUME 81.2 fl (81.0-99.0); MEAN CORPUSCULAR HGB 22.6 pg (27.0-31.0); MEAN CORPUSCULAR HGB CONC 27.8 g/dl (33.0-37.0); MEAN PLATELET VOLUME 9.2 fl (9.6-12.3); MONO # 0.7 10*3/uL (0.1-1.0); MONO % 5.5 % (3.0-9.0); NEUT # 9.3 10*3/uL (2.3-7.9); NEUT % 69.5 % (47.0-73.0); PLATELET COUNT AUTOMATED 439 10*3/uL (130-400); RED BLOOD COUNT 3.14 10*6/uL (4.10-5.10); RED CELL DISTRI WIDTH 20.5 % (0-14.5); WHITE BLOOD COUNT 13.4 10*3/uL (4.8-10.8)
[2020-02-06 07:34] LABS: CHLORIDE 101 mmol/L (98-107); POTASSIUM 3.8 mmol/L (3.5-5.1); SODIUM 138 mmol/L (136-145)
[2020-02-06 07:42] LABS: ALBUMIN 2.1 gm/dl (3.1-4.5); ALKALINE PHOSPHATASE 70 U/L (45-117); BUN 14 mg/dl (7-24); SGOT/AST 12 IU/L (3-35); SGPT/ALT 9 U/L (12-78); TOTAL PROTEIN 6.6 gm/dL (6.4-8.2)
[2020-02-06 08:00] VITALS: BP 136/62
--- NOTE | 2020-02-06 09:46 | NUR ---
Updated clinicals faxed to [facility] for review. Patient is [facility] and ok to return when medically stable for discharge.
[2020-02-06 12:00] VITALS: BP 149/73
[2020-02-06 16:00] VITALS: BP 126/58
--- NOTE | 2020-02-06 16:52 | NUR ---
DR CANCHOLA ROUNDED AND SEEN PT.ORDERS RECIEVED.PT TO HAVE COLO TOMORROW 02/07/20.
--- NOTE | 2020-02-06 17:20 | NUR ---
DR NAVARRO ROUNDED AND SEEN PT.
--- NOTE | 2020-02-06 18:02 | NUR ---
DR LUGO ROUNDED AND SEEN PT.
[2020-02-06 20:00] VITALS: BP 148/67
--- NOTE | 2020-02-06 21:26 | NUR ---
PT SLEEPING IN BED, AWAKENS EASILY. OXYGEN IN USE. RESP-EASY AND REGULAR. TOLERATED ROUTINE MED WIT8H NO PROBLEM. ENCOURAGED TO DRINK PREP. CALL LIGHT IN REACH. SEE SHIFT ASSESSMENT.
--- NOTE | 2020-02-06 21:32 | NUR ---
PT BSG-168, SEE EMAR. ENCOURAGED TO DRINK PREP. CALL LIGHT IN REACH.
[2020-02-07] VITALS (8 sets, daily range): BP systolic 141–151; BP diastolic 53–68
--- NOTE | 2020-02-07 00:10 | NUR ---
SLEEPING IN BED. RESP-EASY AND REGULAR. OXYGEN IN USE. CALL LIGHT IN REACH. SEE SHIFT ASSESSMENT.
--- NOTE | 2020-02-07 05:10 | NUR ---
ADMINISTERED TAP WATER ENEMA, PT TOLERATED. PT HAD LARGE DARK BROWN FORMED STOOL. CALL LIGHT IN REACH.
--- NOTE | 2020-02-07 05:15 | NUR ---
PT SLEEPING IN BED, AWAKENS EASILY. TOLERATED FLEETS ENEMA. PT HAD SMALL HARD DARK BROWN STOOL. CALL LIGHT IN REACH.
--- NOTE | 2020-02-07 05:30 | NUR ---
ADMINISTERED TAP WATER ENEMA. PT HAD SOFT BROWN STOOL. TOLERATED. CLEANED UP WITH MONIJTOR. CALL LIGHT IN REACH.
--- NOTE | 2020-02-07 06:00 | NUR ---
ADMINISTERED ANOTHER TAP WATER ENEMA. STILL HAS SOFT FORMED BROWN STOOL. CLEANED UP AND CALL LIGHT IN REACH.
--- NOTE | 2020-02-07 06:15 | NUR ---
ADMINISTERED ANOTHER TAP WATER ENEMA, PT TOLERATED. CLEANED UP AND BRIEF IN USE. PT HAD LIQUID BROWN STOOL. CALL LIGHT IN REACH.
[2020-02-07 06:56] LABS: BASO # 0.1 10*3/uL (0.0-0.1); BASO % 0.4 % (0.0-1.0); EOS # 0.5 10*3/uL (0.0-0.4); EOS % 3.3 % (1.0-4.0); LYMPH # 3.3 10*3/uL (1.3-4.4); LYMPH % 19.9 % (27.0-41.0); MEAN CELL VOLUME 83.1 fl (81.0-99.0); MEAN CORPUSCULAR HGB 22.6 pg (27.0-31.0); MEAN CORPUSCULAR HGB CONC 27.2 g/dl (33.0-37.0); MONO # 0.8 10*3/uL (0.1-1.0); NEUT # 11.7 10*3/uL (2.3-7.9); NEUT % 70.9 % (47.0-73.0); PLATELET COUNT AUTOMATED 502 10*3/uL (130-400); RED BLOOD COUNT 3.49 10*6/uL (4.10-5.10); RED CELL DISTRI WIDTH 20.4 % (0-14.5); WHITE BLOOD COUNT 16.5 10*3/uL (4.8-10.8)
--- NOTE | 2020-02-07 07:26 | NUR ---
BSG-180. NO C/O AT THIS TIME. CALL LIGHT IN REACH.
--- NOTE | 2020-02-07 09:00 | NUR ---
Updated clinicals faxed to [facility], notified facility patient now has a woundvac. Patient is retirement care, covid negative; patient is ok to return when facility has woundvac and patient is stable for discharge.
[2020-02-07 10:07] LABS: ACID FAST SPEC PROCESSING Tissue Grinding (.)
[2020-02-07 10:07] LABS: ACID FAST SPEC PROCESSING Tissue Grinding (.)
[2020-02-07 10:07] LABS: ACID FAST SPEC PROCESSING Tissue Grinding (.)
[2020-02-07 10:07] LABS: ACID FAST SPEC PROCESSING Tissue Grinding (.)
--- NOTE | 2020-02-07 13:05 | NUR ---
Surgery here to take pt for colonoscopy.
--- NOTE | 2020-02-07 16:08 | NUR ---
Remains in OR
--- NOTE | 2020-02-07 17:51 | NUR ---
Pt returned to floor from OR.
--- NOTE | 2020-02-07 22:15 | NUR ---
PT RESTING IN BED. RESP-EASY AND REGULAR. BSG-194, SEE EMAR. REPOSITIONED IN BED. OXYGEN IN USE. CALL LIGHT IN REACH. SEE SHIFT ASSESSMENT.
[2020-02-08] VITALS: BP 152/78
--- NOTE | 2020-02-08 | NUR ---
PT RESTING IN BED. TOLERATED ROUTINE IV MED WITH NO PROBLEM. CALL LIGHT IN REACH. SEE SHIFT ASSESSMENT.
--- NOTE | 2020-02-08 05:28 | NUR ---
PT RESTING IN BED, REPOSITIONED AND CHANGED FOR INCONTINENT OF URINE. NEW BRIEF PLACED. BSG-131, SEE EMAR. TOLERATED ROUTINE MED WITH NO PROBLEM. CALL LIGHT IN REACH.
[2020-02-08 07:02] LABS: BASO % 0.3 % (0.0-1.0); EOS # 0.7 10*3/uL (0.0-0.4); EOS % 4.5 % (1.0-4.0); HEMATOCRIT 26.3 % (37.0-47.0); LYMPH # 3.3 10*3/uL (1.3-4.4); LYMPH % 22.5 % (27.0-41.0); MEAN CELL VOLUME 81.9 fl (81.0-99.0); MEAN CORPUSCULAR HGB 22.7 pg (27.0-31.0); MEAN CORPUSCULAR HGB CONC 27.8 g/dl (33.0-37.0); MONO # 0.8 10*3/uL (0.1-1.0); MONO % 5.2 % (3.0-9.0); NEUT # 9.7 10*3/uL (2.3-7.9); PLATELET COUNT AUTOMATED 480 10*3/uL (130-400); RED BLOOD COUNT 3.21 10*6/uL (4.10-5.10); RED CELL DISTRI WIDTH 20.2 % (0-14.5); WHITE BLOOD COUNT 14.5 10*3/uL (4.8-10.8)
[2020-02-08 07:33] LABS: BUN 11 mg/dl (7-24); CHLORIDE 103 mmol/L (98-107); POTASSIUM 3.7 mmol/L (3.5-5.1); SODIUM 139 mmol/L (136-145)
[2020-02-08 08:00] VITALS: BP 148/96
[2020-02-08 12:00] VITALS: BP 137/89
[2020-02-08 16:00] VITALS: BP 127/68
--- NOTE | 2020-02-08 17:50 | NUR ---
Assisted pt with pm care. Assisted back to bed from chair. Resting comfortably less anxious. No s/s of pain or sob noted.
--- NOTE | 2020-02-08 18:05 | NUR ---
Spoke with pt daughter Ayleen. Updated on pt, plan of care.
[2020-02-08 20:00] VITALS: BP 146/59
[2020-02-09] VITALS: BP 171/66
[2020-02-09 07:16] LABS: BASO # 0.1 10*3/uL (0.0-0.1); BASO % 0.4 % (0.0-1.0); EOS # 0.7 10*3/uL (0.0-0.4); EOS % 4.6 % (1.0-4.0); HEMATOCRIT 24.5 % (37.0-47.0); LYMPH # 3.5 10*3/uL (1.3-4.4); MEAN CELL VOLUME 77.5 fl (81.0-99.0); MEAN CORPUSCULAR HGB 23.1 pg (27.0-31.0); MEAN CORPUSCULAR HGB CONC 29.8 g/dl (33.0-37.0); MEAN PLATELET VOLUME 9.1 fl (9.6-12.3); MONO # 0.8 10*3/uL (0.1-1.0); MONO % 5.6 % (3.0-9.0); NEUT # 9.5 10*3/uL (2.3-7.9); NEUT % 64.7 % (47.0-73.0); PLATELET COUNT AUTOMATED 502 10*3/uL (130-400); RED BLOOD COUNT 3.16 10*6/uL (4.10-5.10); RED CELL DISTRI WIDTH 20.2 % (0-14.5); WHITE BLOOD COUNT 14.7 10*3/uL (4.8-10.8)
--- NOTE | 2020-02-09 07:30 | NUR ---
PT RESTING IN BED. RESPS EASY AND NON LABORED. NO S/S OF DISTRESS NOTED. VSS. WHITE BOARD UPDATED. POC DISCUSSED W PT. A/O W PERIODS OF CONFUSION. 4L CN INTACT. WOUND VAC @175 LOW CONT W 50 CC BLOODY DRAINAGE IN CONTAINER. +WARM,ABLE TO WIGGLE TOES. VOICES NO CONCERNS. NO FURTHER EPISODES OF EMESIS NOTED. SKIN/FALL PRECAUTIONS MAINTIANED. CALL LIGHT WITHIN REACH.
[2020-02-09 07:36] LABS: BUN 9 mg/dl (7-24); CHLORIDE 104 mmol/L (98-107); CREATININE 0.88 mg/dL (0.55-1.02); POTASSIUM 3.7 mmol/L (3.5-5.1); SODIUM 141 mmol/L (136-145)
[2020-02-09 08:00] VITALS: BP 128/58
[2020-02-09 12:00] VITALS: BP 134/70
[2020-02-09 16:00] VITALS: BP 140/60
[2020-02-09] MEDS ORDERED: CYMBALTA30 MG PO (16:42)
[2020-02-09] MEDS ORDERED: LINEZOLID600 MG PO (16:42)
--- NOTE | 2020-02-09 19:15 | NUR ---
Discharge instructions reviewed with patient. Patient receptive and verbalizes understanding. Follow-up care arranged. Written instructions given to WEIGHT LOSS CONSULTANT, NURSE TO NURSE GIVEN TO BALDO DUARTE @[facility], LEFT VIA [facility] ON 4 LITERS O2, IV REMOVED, TELEMETRY ACCOUNTED FOR, WOUND VAC REMOVED FRO LEFT FOOT, NS WET TO DRY PER POLICY. THEO WALKER
[2020-02-24] MEDS ORDERED: CEFTRIAXONE1 GM IM (19:59)
[2020-03-25 14:10] LABS: ACID FAST CULTURE Negative (.)
[2020-03-25 14:10] LABS: ACID FAST CULTURE Negative (.)
[2020-03-25 14:10] LABS: ACID FAST CULTURE Negative (.)
[2020-03-25 14:10] LABS: ACID FAST CULTURE Negative (.)
== END 2020-02-09 19:15 | disposition other institution (70) | DRG 987 ==
LOC: ED 04:06 → EDHOLD 06:20 → 4E 06:20
PROVIDERS: Emergency Medicine; Family Medicine; Hospitalist; Internal Medicine; Podiatrist Foot & Ankle Surgery; Registered Nurse; ADMIT Student in an Organized Health Care Education/Training Program; ATTEND Student in an Organized Health Care Education/Training Program
PROC: 30233N1 Transfusion of Nonautologous Red Blood Cells into Peripheral Vein, Percutaneous Approach (ICD-10-PCS; 2020-02-01)
PROC: 0DB78ZX Excision of Stomach, Pylorus, Via Natural or Artificial Opening Endoscopic, Diagnostic (ICD-10-PCS; principal; 2020-02-02)
PROC: 0QBP0ZX Excision of Left Metatarsal, Open Approach, Diagnostic (ICD-10-PCS; 2020-02-05)
PROC: 0DJD8ZZ Inspection of Lower Intestinal Tract, Via Natural or Artificial Opening Endoscopic (ICD-10-PCS; 2020-02-07)
DX: K29.71 Gastritis, unspecified, with bleeding (principal); E43 Unspecified severe protein-calorie malnutrition; I13.0 Hypertensive heart and chronic kidney disease with heart failure and stage 1 through stage 4 chronic kidney disease, or unspecified chronic kidney disease; M00.9 Pyogenic arthritis, unspecified; L03.116 Cellulitis of left lower limb; Z68.42 Body mass index [BMI] 45.0-49.9, adult; M86.8X7 Other osteomyelitis, ankle and foot; E11.69 Type 2 diabetes mellitus with other specified complication; E11.621 Type 2 diabetes mellitus with foot ulcer; D64.9 Anemia, unspecified; E03.9 Hypothyroidism, unspecified; E78.5 Hyperlipidemia, unspecified; E11.65 Type 2 diabetes mellitus with hyperglycemia; N32.81 Overactive bladder; F32.9 Major depressive disorder, single episode, unspecified; N18.30 Chronic kidney disease, stage 3 unspecified; E66.01 Morbid (severe) obesity due to excess calories; B95.8 Unspecified staphylococcus as the cause of diseases classified elsewhere; I50.9 Heart failure, unspecified; G25.81 Restless legs syndrome; Z79.899 Other long term (current) drug therapy; D47.3 Essential (hemorrhagic) thrombocythemia; E11.22 Type 2 diabetes mellitus with diabetic chronic kidney disease; K20.90 Esophagitis, unspecified without bleeding; K57.30 Diverticulosis of large intestine without perforation or abscess without bleeding; E11.42 Type 2 diabetes mellitus with diabetic polyneuropathy; Z20.828 Contact with and (suspected) exposure to other viral communicable diseases; L97.529 Non-pressure chronic ulcer of other part of left foot with unspecified severity; Z90.710 Acquired absence of both cervix and uterus; Z98.51 Tubal ligation status; Z87.891 Personal history of nicotine dependence; Z79.82 Long term (current) use of aspirin; Z79.4 Long term (current) use of insulin; Z79.1 Long term (current) use of non-steroidal anti-inflammatories (NSAID)

== ENCOUNTER 2020-02-26 12:20 | Inpatient (IN) | payer MEDICARE ==
[~2020-02-26] VITALS: Ht 167.6 cm; Wt 145.4 kg
[2020-02-26] VITALS (12 sets, daily range): BP systolic 110–156; BP diastolic 43–65
[~2020-02-26 12:20] MED LIST changes: +ACETAMINOPHEN325 M2 PO; +BASAG SOL SC; +CEFTRIAXONE1 GM IM; +CILOSTAZOL100 MG PO; +CRANBERRY450 M2 PO; +LINEZOLID600 MG PO; +MILK OF MA400 MG/51 PO; +VITAMIN D3125 MC1 PO; +ZOLPIDEM TART5 MG PO
[2020-02-26 13:22] LABS: HEMATOCRIT 22.4 % (37.0-47.0); MEAN CELL VOLUME 79.2 fl (81.0-99.0); MEAN CORPUSCULAR HGB 22.6 pg (27.0-31.0); MEAN CORPUSCULAR HGB CONC 28.6 g/dl (33.0-37.0); MEAN PLATELET VOLUME 8.6 fl (9.6-12.3); NUCLEATED RED BLOOD CELL 0.1 % (0.0-0.0); PLATELET COUNT AUTOMATED 370 10*3/uL (130-400); RED BLOOD COUNT 2.83 10*6/uL (4.10-5.10); RED CELL DISTRI WIDTH 20.4 % (0-14.5); WHITE BLOOD COUNT 17.5 10*3/uL (4.8-10.8)
[2020-02-26 13:40] LABS: ALBUMIN 2.3 gm/dl (3.1-4.5); CREATININE 1.1 mg/dL (0.55-1.02); TOTAL PROTEIN 7.3 gm/dL (6.4-8.2)
[2020-02-26 13:41] LABS: TOTAL CELLS COUNTED 100 #CELLS
[2020-02-26 13:42] LABS: MICROCYTOSIS SLIGHT
[2020-02-26 13:43] LABS: OVALOCYTES FEW; PLATELET SUFFICIENCY NORMAL (NORMAL)
--- NOTE | 2020-02-26 17:56 | NUR ---
BLOOD PAUSED FOR IV INFILTRATION.
--- NOTE | 2020-02-26 18:07 | NUR ---
BLOOD TRANSFUSION HAS RESUMED.
--- NOTE | 2020-02-26 18:12 | NUR ---
PER NURSING PAINTING CONTRACTOR AND PODIATRY, PODIATRY DOES NOT WANT WOUND VAC REMOVED OR DRESSINGS UNCOVERED. PODIATRY NOTES THE DRESSINGS WILL NOT BE REMOVED UNTIL WEDNESDAY. PT REFUSES PICTURES OF WOUNDS DUE TO DOCTOR TELLING HER NOT TO LET ANYONE MESS WITH IT.
--- NOTE | 2020-02-26 18:27 | NUR ---
PT IS GOING TO ROOM 520.
--- NOTE | 2020-02-26 18:57 | NUR ---
Time: 1644 A 79 year old FEMALE admitted to 5E under services of DOTTY ARREAGA DO. Pt. arrived via bed from ER. Chief complaint: ACUTE BLOOD LOSS ANEMIA, UPPER GI BLEED. LUI SMIGUEL TIRADO
--- NOTE | 2020-02-26 18:58 | NUR ---
PATIENT CAME TO 5E ROOM 520 WITH PACKED RBC INFUSION RUNNING ORDERRED. PATIENT HAS WOUND VAC AND BOTH LEGS ARE DRESSED AND WRAPPED. PER PREPARATORY TECHNICIAN PATIENT REFUSED TO HAVE LEGS UNWRAPPEED. AND PER NURSING STORE HOST NIRU, AND PODIATRY, WOUNDS ARE NOT TO BE UNDRESSED AND PODIATRY WILL SEE HER ON WEDNESDAY.
--- NOTE | 2020-02-26 19:04 | NUR ---
MAGNESIUM NOT GIVEN DUE TO IV INFILTRATION AND BLOOD ADMINISTRATION.
--- NOTE | 2020-02-26 19:37 | NUR ---
SPOKE WITH DR. PORTER PERTAINING TO PATIENTS WOUND VAC AND NEEDING ORDERS FROM PODIATRY EVEN THOUGH ITS THE PATIENTS OWN WOUND VAC.
[2020-02-26] MEDS ORDERED: DULCOLAX10 M1 R (20:02)
[2020-02-26] MEDS ORDERED: CYMBALTA60 MG PO (20:03)
[2020-02-26] MEDS ORDERED: PROTONIX IV40 MG PO (20:06)
[2020-02-26] MEDS ORDERED: FLORASTOR250 MG PO (20:25)
--- NOTE | 2020-02-26 20:27 | NUR ---
NOTIFIED DR. ROLLINS THAT THE PATIENTS MED REC WAS COMPLETED. ALSO ASKED HIM IF HE WOULD LIKE TO KEEP THE PATIENTS CBC AT 2100 SINCE THE BLOOD FINISHED JUST NOW. HE STATED THAT IT WAS OK TO KEEP ON FOR 2100
[2020-02-26 21:35] LABS: HEMATOCRIT 21.2 % (37.0-47.0); MEAN CELL VOLUME 80.3 fl (81.0-99.0); MEAN CORPUSCULAR HGB 23.1 pg (27.0-31.0); MEAN CORPUSCULAR HGB CONC 28.8 g/dl (33.0-37.0); MEAN PLATELET VOLUME 9.2 fl (9.6-12.3); NUCLEATED RED BLOOD CELL 0.1 10*3/uL (0.0-0.0); NUCLEATED RED BLOOD CELL 0.3 % (0.0-0.0); PLATELET COUNT AUTOMATED 368 10*3/uL (130-400); RED BLOOD COUNT 2.64 10*6/uL (4.10-5.10); RED CELL DISTRI WIDTH 20.5 % (0-14.5); WHITE BLOOD COUNT 19.2 10*3/uL (4.8-10.8)
--- NOTE | 2020-02-26 21:41 | NUR ---
DR. ROLLINS NOTIFIED OF CRITICAL HEMOGLOBIN OF 6.1
[2020-02-26 21:51] LABS: TOTAL CELLS COUNTED 100 #CELLS
[2020-02-26 21:53] LABS: PLATELET SUFFICIENCY NORMAL (NORMAL)
--- NOTE | 2020-02-26 22:18 | NUR ---
PRN NORCO GIVEN FOR PT COMPLAINTS OF PAIN IN THE LOWER EXTREMITIES RATING IT 7/10. CALL LIGHT WITHIN REACH, WILL MONITOR
--- NOTE | 2020-02-26 23:00 | NUR ---
PRN NORCO APPEARS EFFECTIVE, PT SLEEPING
[2020-02-27] VITALS (13 sets, daily range): BP systolic 123–172; BP diastolic 51–72
--- NOTE | 2020-02-27 00:15 | NUR ---
SPOKE WITH DR. ROLLINS. NOTIFIED HIM THAT THE PATIENT HAD A MAG RUN THAT WAS NEVER GIVEN AT 6PM FOR A MAG LEVEL 1.3. NOTIFIED DR. ROLLINS THAT WE STUCK THE PATIENT ALREADY 5 TIMES TO OBTAIN THE IV ACCESS WE HAVE NOW FOR THE PATIENTS BLOOD. DR. ROLLINS STATED SHE NEEDS TO HAVE ANOTHER IV SITE TO GIVE HER THE MAG RUN AND WANTS TO HAVE MORE PEOPLE TRY TO GAIN IV ACCESS ON THE PATIENT.
--- NOTE | 2020-02-27 01:33 | NUR ---
SPOKE WITH DR. ROLLINS AT THIS TIME. NOTIFIED HIM THAT NOBODY WAS ABLE TO GET ANOTHER IV SITE ON THE PATIENT BUT THAT HER BLOOD WAS DONE RUNNING. ALSO ASKED HIM IF HE WANTED THE MAG RUN TO RUN OVER THE 4 HOURS THAT WAS ORIGINALLY PUT IN. HE STATED NO, WE CAN CHANGE IT TO IT'S STANDARD RATE
--- NOTE | 2020-02-27 01:40 | NUR ---
SPOKE WITH DR. ROLLINS AT THIS TIME ASKED IF HE WOULD LIKE ANOTHER CBC DONE ON THE PATIENT. HE STATED TO PUT IT IN FOR 0200.
--- NOTE | 2020-02-27 02:42 | NUR ---
24 HR chart check completed.
[2020-02-27 02:46] LABS: HEMATOCRIT 22.6 % (37.0-47.0); MEAN CELL VOLUME 80.7 fl (81.0-99.0); MEAN CORPUSCULAR HGB 23.9 pg (27.0-31.0); MEAN CORPUSCULAR HGB CONC 29.6 g/dl (33.0-37.0); MEAN PLATELET VOLUME 8.8 fl (9.6-12.3); NUCLEATED RED BLOOD CELL 0.1 10*3/uL (0.0-0.0); NUCLEATED RED BLOOD CELL 0.4 % (0.0-0.0); PLATELET COUNT AUTOMATED 332 10*3/uL (130-400); RED CELL DISTRI WIDTH 20.3 % (0-14.5); WHITE BLOOD COUNT 16.2 10*3/uL (4.8-10.8)
--- NOTE | 2020-02-27 02:51 | NUR ---
NOTIFIED DR. ROLLINS OF PATIENTS CRITICAL HEMOGLOBIN. HE STATED TO TRANSFUSE ANOTHER UNIT AFTER PATIENTS MAG RUN IS FINISHED
[2020-02-27 03:11] LABS: BASOPHILS 1 % (0-1); PLATELET SUFFICIENCY NORMAL (NORMAL); TOTAL CELLS COUNTED 100 #CELLS
[2020-02-27 03:12] LABS: MICROCYTOSIS SLIGHT
--- NOTE | 2020-02-27 03:19 | NUR ---
SPOKE WITH DR. ROLLINS AT THIS TIME. ASKED HIM IF HE WOULD LIKE THE PATIENT TO HAVE ANY LASIX SHE HAS HAD TWO UNITS OF BLOOD AND TAKES LASIX AT HOME. DISCUSSED LAB RESULTS AND DR. ROLLINS STATED TO PUT IN 20MG OF IV LASIX BEFORE 3RD UNIT OF BLOOD
--- NOTE | 2020-02-27 03:57 | NUR ---
CALLED [facility] AT THIS TIME LASIX HAS NOT BEEN VERIFIED WHEN THE ORDER WAS PUT IN AT 0320.
--- NOTE | 2020-02-27 06:02 | NUR ---
PATIENTS BLOOD SUGAR CHECKED AT 0600, PATIENTS BLOOD SUGAR FOUND TO BE 23. PATIENT STILL AWAKE AND ALERT. STATES SHE JUST FEELS SWEATY. DR. ROLLINS MADE AWARE. REFLEX GLUCOSE ORDERED. PRN DEXTROSE AND APPLE JUICE/ORANGE JUICE GIVEN WELL.
--- NOTE | 2020-02-27 06:45 | NUR ---
PATIENTS BLOOD SUGAR RECHECKED AT THIS TIME. BLOOD SUGAR 90
--- NOTE | 2020-02-27 06:54 | NUR ---
SPOKE WITH DR. ROLLINS AT THIS TIME. NOTIFIED HIM THAT THE PATIENTS BLOOD IS DONE NOW AND ASKED WHEN HE WOULD LIKE HER MORNING LABS DRAWN. HE STATED IN ABOUT 20-30 MINUTES
--- NOTE | 2020-02-27 06:55 | NUR ---
NOTIFIED LAB THAT IT WAS OK TO DRAW PATIENTS BLOOD IN 20-[address] ROLLINS
[2020-02-27 07:52] LABS: HEMATOCRIT 27.1 % (37.0-47.0); MEAN CELL VOLUME 81.1 fl (81.0-99.0); MEAN CORPUSCULAR HGB 24.6 pg (27.0-31.0); MEAN CORPUSCULAR HGB CONC 30.3 g/dl (33.0-37.0); MEAN PLATELET VOLUME 8.8 fl (9.6-12.3); NUCLEATED RED BLOOD CELL 0.1 10*3/uL (0.0-0.0); NUCLEATED RED BLOOD CELL 0.3 % (0.0-0.0); PLATELET COUNT AUTOMATED 340 10*3/uL (130-400); RED BLOOD COUNT 3.34 10*6/uL (4.10-5.10); RED CELL DISTRI WIDTH 19.6 % (0-14.5); WHITE BLOOD COUNT 15.1 10*3/uL (4.8-10.8)
[2020-02-27 08:13] LABS: OVALOCYTES FEW; PLATELET SUFFICIENCY NORMAL (NORMAL); POLYCHROMASIA SLIGHT; TARGET CELLS FEW; TOTAL CELLS COUNTED 100 #CELLS
[2020-02-27 08:19] LABS: CREATININE 1.09 mg/dL (0.55-1.02); POTASSIUM 4.4 mmol/L (3.5-5.1)
--- NOTE | 2020-02-27 08:30 | NUR ---
Estate And Trust Tax Principal in to talk to patient in her Room. Patient states that she Lives [place] at [facility] for Approximately the Last Year or More Physician: Dr. Hyde at [facility], Hospitalist Group Inpatient Pharmacy: Per [facility] Home health services: All services Provided at the Facility Patient's level of ADLs: Complete Care Patient has working utilities: At Facility DME: Oxygen 4L NC Follow-up physician's appointment after d/c: Pt. receives all Services at [facility]. Does patient want to access PORTAL?: Declines, Discharge Paperwork with be sent to the Facility at discharge Discharge plan Return to [facility] Intermediate Care Resident. SAVANNAH BRAN LPN
--- NOTE | 2020-02-27 11:12 | NUR ---
CONSULT CALLED TO DR CANCHOLA. N NEW ORDERS OF THIS TIME.
--- NOTE | 2020-02-27 11:36 | NUR ---
Saw Pt. this Morning for Case Management Assessment. Pt. is LTC at [facility] and can return to facility at discharge. Clinical Updates faxed to [facility].
--- NOTE | 2020-02-27 12:14 | NUR ---
CORONOVIRUS SWAB COLLECTED AND SENT TO LAB. CX COLLECTED AND SENT TO LAB BS 122. PT DOES NOT REQUIRE COVERAGE.
--- NOTE | 2020-02-27 14:56 | NUR ---
OT NOTE Occupational therapy order received, chart reviewed, and attempted to see patient at bedside. Patient supine with HOB elevated upon arrival. Patient declined an OT evaluation at this time stating "No" with no further explanation provided. Per patient, she has not walked in 7 months, is khurram lifted for OOB activity, and is assisted with dressing and bathing. Patient agreeable to OT returning at a later date for potential evaluation. PT present throughout conversation with patient. RN aware of patient declining. Thank you. Shima Rojas OTR/L
--- NOTE | 2020-02-27 15:03 | NUR ---
PHYSICAL THERAPY Physical therapy order recieved and chart was reviewed. Attempted to see patient on this date for evaluation however patient refused stating "No" when asked to participate. Agreed with patient to check back at a later time pending participation to complete evaluation. OT present for evaluation attempt. Nursing made aware of refusal and stated to return at a later time for evaluation. Per patient she has not performed bed mobility, transfers or ambulated in 7 months with use of khurram lift for all transfers. Neena Noriega PT DPT
[2020-02-28] VITALS: BP 154/85
[2020-02-28 06:42] LABS: MEAN CORPUSCULAR HGB 24.9 pg (27.0-31.0); MEAN CORPUSCULAR HGB CONC 30.4 g/dl (33.0-37.0); MEAN PLATELET VOLUME 8.8 fl (9.6-12.3); NUCLEATED RED BLOOD CELL 0.2 % (0.0-0.0); PLATELET COUNT AUTOMATED 349 10*3/uL (130-400); RED BLOOD COUNT 3.17 10*6/uL (4.10-5.10); RED CELL DISTRI WIDTH 21.1 % (0-14.5); RETICULOCYTE % 1.73 % (0.50-2.50)
[2020-02-28 06:50] LABS: BUN 19 mg/dl (7-24); CHLORIDE 100 mmol/L (98-107); CREATININE 1.06 mg/dL (0.55-1.02); POTASSIUM 4.6 mmol/L (3.5-5.1); SODIUM 136 mmol/L (136-145)
[2020-02-28 07:16] LABS: OVALOCYTES FEW; PLATELET SUFFICIENCY NORMAL (NORMAL); POLYCHROMASIA SLIGHT; TOTAL CELLS COUNTED 100 #CELLS
[2020-02-28 07:17] LABS: ROULEAUX SLIGHT
[2020-02-28 08:00] VITALS: BP 121/64
--- NOTE | 2020-02-28 08:47 | NUR ---
PHYSICAL THERAPY PT evaluation attempted. Patient alert and oriented to name and birthday, although some confusion present. Patient lethargic and having difficulty opening eyes throughout session. Attempted to sit EOB, but patient unable to help at this time, Max A x2. Assisted patient for comfort. Will return at a later time/date to complete full PT evaluation. Thank you. Daphney Mueller,PT,DPT
--- NOTE | 2020-02-28 08:49 | NUR ---
OT NOTE Occupational therapy order received and chart reviewed. Patient supine in bed with HOB elevated upon arrival on 4L O2 at 93%, A&Ox3 and some confusion present. Patient lethargic and having difficulty opening eyes. Patient agreeable to an OT evaluation and sitting EOB. Patient performed bed mobility with Max Ax2 and got to near EOB when patient declined further activity and stated "Leave me alone." Patient re-positioned in bed, alarm on for safety, 4LO2 intact, and all needs within reach. Kelli GROUND SYSTEMS ENGINEER in room when re-positioning patient and was made aware of patient's functional status and refusal. Physical therapy present throughout. Will return for further completion of an OT eval. Thank you. Shima Rojas OTSebastien/Wendi
[2020-02-28 12:00] VITALS: BP 127/56
--- NOTE | 2020-02-28 13:07 | NUR ---
PHYSICAL THERAPY PT evaluation attempted. Patient refusing skilled PT evaluation at this time, and requesting return at a different date to complete PT evaluation. Will continue to follow. Thank you. Daphney Mueller,PT,DPT
--- NOTE | 2020-02-28 13:19 | NUR ---
Attempted OT evaluation around 1:10PM, nursing cleared patient to be seen. Patient in supine with eyes closed, declining mobility at this time, declining therapy to check back in later but agreed for therapy to check back tomorrow. Nicolle Cornelius, OTR/L
[2020-02-28 16:00] VITALS: BP 134/71
[2020-02-28 20:00] VITALS: BP 132/60
[2020-02-29] VITALS: BP 146/57
[2020-02-29 07:00] LABS: BASO % 0.3 % (0.0-1.0); EOS # 0.6 10*3/uL (0.0-0.4); EOS % 4.9 % (1.0-4.0); HEMATOCRIT 25.8 % (37.0-47.0); LYMPH # 2.9 10*3/uL (1.3-4.4); LYMPH % 22.7 % (27.0-41.0); MEAN CELL VOLUME 82.7 fl (81.0-99.0); MEAN CORPUSCULAR HGB 24.4 pg (27.0-31.0); MEAN CORPUSCULAR HGB CONC 29.5 g/dl (33.0-37.0); MEAN PLATELET VOLUME 8.7 fl (9.6-12.3); MONO # 0.8 10*3/uL (0.1-1.0); MONO % 6.5 % (3.0-9.0); NEUT # 8.2 10*3/uL (2.3-7.9); NEUT % 63.3 % (47.0-73.0); PLATELET COUNT AUTOMATED 364 10*3/uL (130-400); RED BLOOD COUNT 3.12 10*6/uL (4.10-5.10); RED CELL DISTRI WIDTH 21.5 % (0-14.5); WHITE BLOOD COUNT 12.9 10*3/uL (4.8-10.8)
[2020-02-29 07:32] LABS: CREATININE 1.14 mg/dL (0.55-1.02); POTASSIUM 4.3 mmol/L (3.5-5.1)
[2020-02-29 08:00] VITALS: BP 136/62
--- NOTE | 2020-02-29 10:24 | NUR ---
DR. COLBERT'S OFFICE WAS CALLED FOR INFECTIOUS DISEASE CONSULT.
--- NOTE | 2020-02-29 11:28 | NUR ---
NOTIFIED SURGERY ABOUT DR. DE LUNA PERFORMING COLONOSCOPY WITH EGD TOMORROW.
[2020-02-29 12:00] VITALS: BP 122/69
--- NOTE | 2020-02-29 12:25 | NUR ---
OT NOTE Occupational therapy order received, chart reviewed, and attempted to see patient at bedside. Patient declined an OT evaluation stating "I'm busy" with no further explanation provided. This OTR asked if therapy could return this afternoon for her OT evaluation and the patient requested that the therapists do not return at all. Will discharge patient's orders per patient's preference. The physical therapist was present throughout. Thank you. Shima Rojas, OTR/Wendi
--- NOTE | 2020-02-29 13:27 | NUR ---
Clinical Updates faxed to [facility] Attn: Mary [phone].
--- NOTE | 2020-02-29 13:49 | NUR ---
PHYSICAL THERAPY Physical therapy order received, chart reviewed, and attempted to see patient at bedside. Patient declined an PT evaluation stating "I'm busy" with no further explanation provided. Asked if therapy could return to see her this afternoon for her PT evaluation and the patient requested that the therapists do not return at all. Will discharge patient's orders per patient's preference. The occupational therapist was present throughout. Neena Noriega PT DPT
[2020-02-29 16:00] VITALS: BP 114/71
[2020-02-29 20:00] VITALS: BP 157/68
[2020-03-01] VITALS (8 sets, daily range): BP systolic 140–176; BP diastolic 61–81
--- NOTE | 2020-03-01 06:40 | NUR ---
IV started left middle finger with #24 angiocath. The IV site was prepped with Chloraprep. Heparin lock attached. Sterile dressing applied. Patient tolerated precedure well. Procedure performed according to [facility] policy & procedure. KOREY RICHARDSON
[2020-03-01 06:45] LABS: BASO # 0.1 10*3/uL (0.0-0.1); BASO % 0.4 % (0.0-1.0); EOS # 0.6 10*3/uL (0.0-0.4); EOS % 4.9 % (1.0-4.0); HEMATOCRIT 27.2 % (37.0-47.0); LYMPH # 2.6 10*3/uL (1.3-4.4); LYMPH % 20.6 % (27.0-41.0); MEAN CELL VOLUME 83.2 fl (81.0-99.0); MEAN CORPUSCULAR HGB 24.2 pg (27.0-31.0); MEAN PLATELET VOLUME 8.7 fl (9.6-12.3); MONO # 0.7 10*3/uL (0.1-1.0); MONO % 5.2 % (3.0-9.0); NEUT # 8.7 10*3/uL (2.3-7.9); NEUT % 67.7 % (47.0-73.0); PLATELET COUNT AUTOMATED 396 10*3/uL (130-400); RED BLOOD COUNT 3.27 10*6/uL (4.10-5.10); RED CELL DISTRI WIDTH 21.2 % (0-14.5); WHITE BLOOD COUNT 12.8 10*3/uL (4.8-10.8)
[2020-03-01 07:12] LABS: BUN 18 mg/dl (7-24); CHLORIDE 101 mmol/L (98-107); CREATININE 0.91 mg/dL (0.55-1.02); POTASSIUM 3.6 mmol/L (3.5-5.1); SODIUM 139 mmol/L (136-145)
--- NOTE | 2020-03-01 07:58 | NUR ---
CALL PLACED TO SUSHANT Singh, ADVISED PATIENT DID NOT TAKE A LARRGE PORTION OF HRR PREP GO COLO, ADVISED TO CONTINUE TO GIVE TTHIS AM AND HE WILL DO COLO HIS AFTERNOON.
--- NOTE | 2020-03-01 08:48 | NUR ---
Pt. is Prepping for Procedure. [facility] was updated yesterday on Pt. having Procedure. Pt. will return to [facility] with their Wound Vac which is in the Patient Room. Pt. is LTC and will return to [place] at discharge.
--- NOTE | 2020-03-01 12:07 | NUR ---
Clinical Updates faxed to [facility].
--- NOTE | 2020-03-01 19:30 | NUR ---
REPORT RECEIVED. PT WATCHING TV. VOICES NO COMPLAINTS. CALL LIGHT IN REACH
--- NOTE | 2020-03-01 22:00 | NUR ---
IN TO SEE PATIENT. MEDICATIONS GIVEN. NO COMPLAINTS AT THIS TIME.
[2020-03-02] VITALS: BP 159/59
--- NOTE | 2020-03-02 | NUR ---
PT WATCHING TV
--- NOTE | 2020-03-02 03:00 | NUR ---
SLEEPING AT THIS TIME
[2020-03-02 06:33] LABS: BASO % 0.3 % (0.0-1.0); EOS # 0.6 10*3/uL (0.0-0.4); EOS % 4.9 % (1.0-4.0); HEMATOCRIT 26.8 % (37.0-47.0); LYMPH # 2.9 10*3/uL (1.3-4.4); MEAN CELL VOLUME 83.5 fl (81.0-99.0); MEAN CORPUSCULAR HGB 24.3 pg (27.0-31.0); MEAN CORPUSCULAR HGB CONC 29.1 g/dl (33.0-37.0); MEAN PLATELET VOLUME 8.9 fl (9.6-12.3); MONO # 0.8 10*3/uL (0.1-1.0); MONO % 6.1 % (3.0-9.0); NEUT # 8.6 10*3/uL (2.3-7.9); NEUT % 66.1 % (47.0-73.0); PLATELET COUNT AUTOMATED 393 10*3/uL (130-400); RED BLOOD COUNT 3.21 10*6/uL (4.10-5.10); RED CELL DISTRI WIDTH 21.1 % (0-14.5)
[2020-03-02 06:39] LABS: ALBUMIN 2.2 gm/dl (3.1-4.5); BUN 12 mg/dl (7-24); CHLORIDE 103 mmol/L (98-107); POTASSIUM 3.3 mmol/L (3.5-5.1); SGOT/AST 10 IU/L (3-35); SGPT/ALT 13 U/L (12-78); SODIUM 138 mmol/L (136-145)
[2020-03-02 06:41] LABS: ALKALINE PHOSPHATASE 68 U/L (45-117); CREATININE 0.81 mg/dL (0.55-1.02); TOTAL PROTEIN 6.7 gm/dL (6.4-8.2)
[2020-03-02 08:00] VITALS: BP 148/64
[2020-03-02 12:00] VITALS: BP 155/70
[2020-03-02 16:00] VITALS: BP 153/48
[2020-03-02 20:00] VITALS: BP 165/70
[2020-03-03] VITALS: BP 140/61
[2020-03-03 07:26] LABS: BASO % 0.3 % (0.0-1.0); EOS # 0.7 10*3/uL (0.0-0.4); EOS % 6.1 % (1.0-4.0); HEMATOCRIT 27.1 % (37.0-47.0); LYMPH # 3.2 10*3/uL (1.3-4.4); LYMPH % 27.5 % (27.0-41.0); MEAN CELL VOLUME 82.9 fl (81.0-99.0); MEAN CORPUSCULAR HGB 23.9 pg (27.0-31.0); MEAN CORPUSCULAR HGB CONC 28.8 g/dl (33.0-37.0); MEAN PLATELET VOLUME 8.8 fl (9.6-12.3); MONO # 0.8 10*3/uL (0.1-1.0); MONO % 6.9 % (3.0-9.0); NEUT # 6.8 10*3/uL (2.3-7.9); NEUT % 58.8 % (47.0-73.0); PLATELET COUNT AUTOMATED 404 10*3/uL (130-400); RED BLOOD COUNT 3.27 10*6/uL (4.10-5.10); RED CELL DISTRI WIDTH 20.8 % (0-14.5); WHITE BLOOD COUNT 11.6 10*3/uL (4.8-10.8)
[2020-03-03 07:31] LABS: ALBUMIN 2.2 gm/dl (3.1-4.5); ALKALINE PHOSPHATASE 73 U/L (45-117); BUN 12 mg/dl (7-24); CHLORIDE 103 mmol/L (98-107); CREATININE 0.91 mg/dL (0.55-1.02); SGOT/AST 10 IU/L (3-35); SGPT/ALT 13 U/L (12-78); SODIUM 138 mmol/L (136-145); TOTAL PROTEIN 6.8 gm/dL (6.4-8.2)
[2020-03-03 08:00] VITALS: BP 144/65
[2020-03-03 12:00] VITALS: BP 153/70
[2020-03-03 16:00] VITALS: BP 116/50
--- NOTE | 2020-03-03 19:20 | NUR ---
REPORT RECEIVED. PT SLEEPING. CALL LIGHT IN REACH
[2020-03-03 20:00] VITALS: BP 137/51
--- NOTE | 2020-03-03 21:00 | NUR ---
IN TO SEE PT AND PASS MEDICATIONS. PT AWAKENS EASILY, VOICES NO COMPLAINTS. CALL LIGHT IN REACH
[2020-03-04] VITALS: BP 131/56
--- NOTE | 2020-03-04 | NUR ---
PT SLEEPING AT THIS TIME
--- NOTE | 2020-03-04 03:00 | NUR ---
PT SLEEPING AT THIS TIME. RESPIRATIONS EASY AND UNLABORED. CALL LIGHT IN REACH
--- NOTE | 2020-03-04 05:30 | NUR ---
IN TO SEE PT AND GIVE MEDICATIONS. PT AWAKENS EASILY, VERBALIZES NO COMPLAINTS. CALL LIGHT IN REACH
[2020-03-04 07:02] LABS: BUN 12 mg/dl (7-24); CHLORIDE 103 mmol/L (98-107); CREATININE 0.85 mg/dL (0.55-1.02); SODIUM 137 mmol/L (136-145)
[2020-03-04 07:03] LABS: BASO # 0.1 10*3/uL (0.0-0.1); BASO % 0.4 % (0.0-1.0); EOS # 0.8 10*3/uL (0.0-0.4); EOS % 6.5 % (1.0-4.0); HEMATOCRIT 27.2 % (37.0-47.0); LYMPH # 3.1 10*3/uL (1.3-4.4); MEAN CELL VOLUME 83.4 fl (81.0-99.0); MEAN CORPUSCULAR HGB 24.2 pg (27.0-31.0); MEAN PLATELET VOLUME 8.7 fl (9.6-12.3); MONO # 0.7 10*3/uL (0.1-1.0); MONO % 5.4 % (3.0-9.0); NEUT # 7.6 10*3/uL (2.3-7.9); NEUT % 62.3 % (47.0-73.0); PLATELET COUNT AUTOMATED 396 10*3/uL (130-400); RED BLOOD COUNT 3.26 10*6/uL (4.10-5.10); RED CELL DISTRI WIDTH 20.6 % (0-14.5); WHITE BLOOD COUNT 12.3 10*3/uL (4.8-10.8)
[2020-03-04 08:00] VITALS: BP 155/59
--- NOTE | 2020-03-04 09:31 | NUR ---
Clinical Updates faxed to Katrina at [facility]. [phone].
--- NOTE | 2020-03-04 10:46 | NUR ---
Nutritional Support Services Note: Appetite is good for meals, she is eating 100% of all meals. Regular diet as ordered. Ht.5'6 Wt.[id number]#. Continue to encourage good po intake of meals and fluids. Will follow as needed. Hiral Quiñonez Rdn Ld
--- NOTE | 2020-03-04 11:23 | NUR ---
August RAMIREZ caring for patient made aware discharge photos need to be obtained when patient is discharged.
[2020-03-04 12:00] VITALS: BP 124/60
[2020-03-04 16:00] VITALS: BP 122/59
[2020-03-04 20:00] VITALS: BP 133/53
[2020-03-05] VITALS: BP 143/64
--- NOTE | 2020-03-05 05:31 | NUR ---
24 HR chart check completed.
[2020-03-05 08:00] VITALS: BP 152/63
--- NOTE | 2020-03-05 08:08 | NUR ---
PHARMACEUTICAL SALES REPRESENTATIVE RECEIVED CALL FROM TONE TERAN. PHARMACEUTICAL SALES REPRESENTATIVE NOTIFIED BHUMIKA BRAN LPN ASSOCIATE [facility]IENT BEING TRANSFERRED TO [place] TODAY OR TOMORROW FOR DR. NAVARRO. AFTER HER PROCEDURE PATIENT WILL BE RETURNING TO [facility] WHERE SHE IS LTC.
[2020-03-05 08:11] LABS: BASO % 0.3 % (0.0-1.0); EOS # 0.8 10*3/uL (0.0-0.4); EOS % 5.7 % (1.0-4.0); HEMATOCRIT 27.1 % (37.0-47.0); LYMPH # 3.1 10*3/uL (1.3-4.4); LYMPH % 22.6 % (27.0-41.0); MEAN CELL VOLUME 84.2 fl (81.0-99.0); MEAN CORPUSCULAR HGB 24.5 pg (27.0-31.0); MEAN CORPUSCULAR HGB CONC 29.2 g/dl (33.0-37.0); MEAN PLATELET VOLUME 8.5 fl (9.6-12.3); MONO # 0.7 10*3/uL (0.1-1.0); NEUT # 8.9 10*3/uL (2.3-7.9); PLATELET COUNT AUTOMATED 366 10*3/uL (130-400); RED BLOOD COUNT 3.22 10*6/uL (4.10-5.10); RED CELL DISTRI WIDTH 20.7 % (0-14.5); WHITE BLOOD COUNT 13.5 10*3/uL (4.8-10.8)
[2020-03-05 08:23] LABS: BUN 13 mg/dl (7-24); CHLORIDE 104 mmol/L (98-107); CREATININE 0.72 mg/dL (0.55-1.02); POTASSIUM 3.8 mmol/L (3.5-5.1); SODIUM 139 mmol/L (136-145)
[2020-03-05] MEDS ORDERED: Carafate1 GM PO (09:02)
--- NOTE | 2020-03-05 10:30 | NUR ---
Spoke with Pt. Daughter Ayleen via telephone. Pt. is discharge today with return to [facility].
--- NOTE | 2020-03-05 10:41 | NUR ---
RHONDA RECEIVED CALL FROM TONE COLON. PER DARLENE THIS PATIENT IS GOING TO [place] TOMORROW 03/06/20 AT 8:30A. DEPUTY BAILIFF INFORMED BHUMIKA BRAN LPN MORTGAGE ANALYST.
[2020-03-05 12:00] VITALS: BP 150/60
--- NOTE | 2020-03-05 12:01 | NUR ---
Several voice Messages left for Katrina at [facility] to Inform her of Pt. going to [place] in the A.M. for Procedure and then Pt. will discharge to [place] From [place].
--- NOTE | 2020-03-05 15:13 | NUR ---
Spoke with Katrina at [facility]. Katrina is aware that Patient will go to [place] Early A.m. for Procedure and Then Return to [facility].
--- NOTE | 2020-03-05 15:51 | NUR ---
GAVE REPORT TO [facility]. PATIENT WILL BE LEAVING AT 0630 FOR PROCEDURE THERE. SHE WILL GO TO [facility] FROM [place] AFTER [facility].
[2020-03-05 16:00] VITALS: BP 135/51
[2020-03-05 20:00] VITALS: BP 133/58
[2020-03-06] VITALS: BP 159/65
--- NOTE | 2020-03-06 03:26 | NUR ---
24 HR chart check completed.
--- NOTE | 2020-03-06 06:05 | NUR ---
PT TRANSFERRED TO [facility] VIA [facility]. [facility] CALLED AND INFORMED SHE WOULD BE GOING THERE AND DISCHARGED BACK TO THEM ONCE PROCEDURE WAS PERFORMED. CALL WAS MADE TO INFORM THEM THAT HER WOUND VAC WAS REMOVED PER PODIATRY AND A WET TO DRY WAS PLACED. PT'S WOUND VAC WOULD BE TRANSPORTED WITH HER. AMBULANCE SERVICE WAS ALSO INFORMED OF THIS.
== END 2020-03-06 06:05 | disposition other institution (70) | DRG 377 ==
LOC: ED 12:20 → 5E 16:51 → EDHOLD 16:51 → 5E 17:31
PROVIDERS: Emergency Medicine; Internal Medicine; Registered Nurse; Student in an Organized Health Care Education/Training Program; ADMIT Family Medicine; ATTEND Family Medicine
PROC: 30233N1 Transfusion of Nonautologous Red Blood Cells into Peripheral Vein, Percutaneous Approach (ICD-10-PCS; principal; 2020-02-26)
PROC: 0DB98ZX Excision of Duodenum, Via Natural or Artificial Opening Endoscopic, Diagnostic (ICD-10-PCS; 2020-03-01)
PROC: 0DBH8ZZ Excision of Cecum, Via Natural or Artificial Opening Endoscopic (ICD-10-PCS; 2020-03-01)
DX: K26.4 Chronic or unspecified duodenal ulcer with hemorrhage (principal); J96.01 Acute respiratory failure with hypoxia; D62 Acute posthemorrhagic anemia; E87.2 Acidosis; E44.0 Moderate protein-calorie malnutrition; Z16.11 Resistance to penicillins; Z16.19 Resistance to other specified beta lactam antibiotics; Z16.23 Resistance to quinolones and fluoroquinolones; Z68.43 Body mass index [BMI] 50.0-59.9, adult; I13.0 Hypertensive heart and chronic kidney disease with heart failure and stage 1 through stage 4 chronic kidney disease, or unspecified chronic kidney disease; K29.71 Gastritis, unspecified, with bleeding; K57.31 Diverticulosis of large intestine without perforation or abscess with bleeding; E11.621 Type 2 diabetes mellitus with foot ulcer; L97.509 Non-pressure chronic ulcer of other part of unspecified foot with unspecified severity; N18.31 Chronic kidney disease, stage 3a; E66.01 Morbid (severe) obesity due to excess calories; E11.42 Type 2 diabetes mellitus with diabetic polyneuropathy; B96.1 Klebsiella pneumoniae [K. pneumoniae] as the cause of diseases classified elsewhere; I50.9 Heart failure, unspecified; G89.29 Other chronic pain; E11.22 Type 2 diabetes mellitus with diabetic chronic kidney disease; E11.40 Type 2 diabetes mellitus with diabetic neuropathy, unspecified; E78.5 Hyperlipidemia, unspecified; E03.9 Hypothyroidism, unspecified; G47.00 Insomnia, unspecified; F32.9 Major depressive disorder, single episode, unspecified; G25.81 Restless legs syndrome; E16.2 Hypoglycemia, unspecified; E83.42 Hypomagnesemia; N32.81 Overactive bladder; D12.0 Benign neoplasm of cecum; Z79.4 Long term (current) use of insulin; Z98.51 Tubal ligation status; Z90.710 Acquired absence of both cervix and uterus; Z87.891 Personal history of nicotine dependence

== ENCOUNTER 2020-03-18 07:28 | Emergency (ER) | payer MEDICARE ==
[~2020-03-18] VITALS: Ht 167.6 cm; Wt 136.1 kg
[~2020-03-18 07:28] MED LIST changes: +CYMBALTA60 MG PO; +Carafate1 GM PO; +DULCOLAX10 M1 R; +PROTONIX IV40 MG PO
[2020-03-18 08:21] LABS: HEMATOCRIT 31.1 % (37.0-47.0); MEAN CELL VOLUME 81.6 fl (81.0-99.0); MEAN CORPUSCULAR HGB 24.4 pg (27.0-31.0); MEAN CORPUSCULAR HGB CONC 29.9 g/dl (33.0-37.0); MEAN PLATELET VOLUME 9.5 fl (9.6-12.3); PLATELET COUNT AUTOMATED 483 10*3/uL (130-400); RED BLOOD COUNT 3.81 10*6/uL (4.10-5.10); RED CELL DISTRI WIDTH 20.9 % (0-14.5)
[2020-03-18 08:31] LABS: INTERNATIONAL NORM RATIO 1.1 (2.0-3.5)
[2020-03-18 08:37] LABS: ALBUMIN 2.6 gm/dl (3.1-4.5); ALKALINE PHOSPHATASE 101 U/L (45-117); BUN 19 mg/dl (7-24); CHLORIDE 97 mmol/L (98-107); CREATININE 1.01 mg/dL (0.55-1.02); POTASSIUM 3.9 mmol/L (3.5-5.1); SGOT/AST 20 IU/L (3-35); SGPT/ALT 13 U/L (12-78); SODIUM 137 mmol/L (136-145); TOTAL PROTEIN 8.4 gm/dL (6.4-8.2)
[2020-03-18 08:44] LABS: BASOPHILS 1 % (0-1); TOTAL CELLS COUNTED 100 #CELLS
[2020-03-18 08:45] LABS: PLATELET SUFFICIENCY HIGH (NORMAL); POLYCHROMASIA SLIGHT; ROULEAUX SLIGHT
[2020-03-18 10:25] LABS: BILIRUBIN Negative (Negative); BLOOD Trace-Lysed (Negative); CLARITY Cloudy (Clear); COLOR Yellow (Yellow); GLUCOSE Negative (Negative); KETONE 1+ (Negative); LEUKO ESTERASE 3+ (Negative); NITRITE Positive (Negative); PH 7.5 (4.5-8.0); SPECIFIC GRAVITY 1.015 (1.001-1.030); UROBILINOGEN 0.2 E.U./dl (0.0-1.0)
[2020-03-18 10:44] LABS: BACTERIA 4+; WBC TNTC wbc/hpf (0-5)
== END 2020-03-19 00:02 | disposition short-term general hospital (02) ==
LOC: ED 07:28
PROVIDERS: Emergency Medicine
DX: A41.9 Sepsis, unspecified organism (principal); K11.20 Sialoadenitis, unspecified; N39.0 Urinary tract infection, site not specified; F32.9 Major depressive disorder, single episode, unspecified; F41.9 Anxiety disorder, unspecified; I10 Essential (primary) hypertension; E78.00 Pure hypercholesterolemia, unspecified; M19.90 Unspecified osteoarthritis, unspecified site; E11.40 Type 2 diabetes mellitus with diabetic neuropathy, unspecified; E03.9 Hypothyroidism, unspecified; E66.01 Morbid (severe) obesity due to excess calories; R09.02 Hypoxemia; Z79.4 Long term (current) use of insulin; Z98.51 Tubal ligation status; Z90.711 Acquired absence of uterus with remaining cervical stump; Z96.652 Presence of left artificial knee joint; Z87.891 Personal history of nicotine dependence

== ENCOUNTER 2020-04-12 15:34 | Inpatient (IN) | payer MEDICARE ==
[~2020-04-12] VITALS: Ht 167.6 cm; Wt 118.5 kg
[2020-04-12 15:39] VITALS: BP 112/50
[2020-04-12 16:05] LABS: BASO % 0.2 % (0.0-1.0); EOS # 0.2 10*3/uL (0.0-0.4); EOS % 2.6 % (1.0-4.0); HEMATOCRIT 25.8 % (37.0-47.0); LYMPH # 2.3 10*3/uL (1.3-4.4); LYMPH % 34.8 % (27.0-41.0); MEAN CELL VOLUME 80.4 fl (81.0-99.0); MEAN CORPUSCULAR HGB 23.7 pg (27.0-31.0); MEAN CORPUSCULAR HGB CONC 29.5 g/dl (33.0-37.0); MONO # 0.5 10*3/uL (0.1-1.0); NEUT # 3.5 10*3/uL (2.3-7.9); NEUT % 54.8 % (47.0-73.0); PLATELET COUNT AUTOMATED 346 10*3/uL (130-400); RED BLOOD COUNT 3.21 10*6/uL (4.10-5.10); RED CELL DISTRI WIDTH 18.7 % (0-14.5); WHITE BLOOD COUNT 6.5 10*3/uL (4.8-10.8)
[2020-04-12 16:18] LABS: ACT PARTIAL THROMBO TIME 31.5 SECONDS (20.0-32.1); INTERNATIONAL NORM RATIO 1.1 (2.0-3.5)
[2020-04-12 16:22] LABS: ALKALINE PHOSPHATASE 71 U/L (45-117); BUN 9 mg/dl (7-24); CHLORIDE 96 mmol/L (98-107); CREATININE 0.72 mg/dL (0.55-1.02); POTASSIUM 3.3 mmol/L (3.5-5.1); SGOT/AST 16 IU/L (3-35); SGPT/ALT 12 U/L (12-78); SODIUM 134 mmol/L (136-145); TOTAL PROTEIN 6.8 gm/dL (6.4-8.2)
[2020-04-12 16:24] LABS: TROPONIN I < 0.015 ng/ml (<0.045)
[2020-04-12 16:39] VITALS: BP 111/56
[2020-04-12 16:59] LABS: ABG BASE EXCESS 11.4 mmol/L (-2.0-2.0); ARTERIAL BLOOD GAS PH 7.374 (7.35-7.45)
[2020-04-12 17:27] VITALS: BP 111/56; BP 113/55
[2020-04-12 18:00] VITALS: BP 147/66
[2020-04-12 20:00] VITALS: BP 138/64
[2020-04-13] VITALS: BP 156/60
[2020-04-13 06:10] LABS: CHLORIDE 96 mmol/L (98-107); POTASSIUM 3.1 mmol/L (3.5-5.1); SODIUM 136 mmol/L (136-145)
[2020-04-13 06:18] LABS: BASO % 0.3 % (0.0-1.0); EOS # 0.1 10*3/uL (0.0-0.4); EOS % 2.1 % (1.0-4.0); HEMATOCRIT 27.1 % (37.0-47.0); MEAN CELL VOLUME 81.6 fl (81.0-99.0); MEAN CORPUSCULAR HGB 23.5 pg (27.0-31.0); MEAN CORPUSCULAR HGB CONC 28.8 g/dl (33.0-37.0); MEAN PLATELET VOLUME 8.8 fl (9.6-12.3); MONO # 0.5 10*3/uL (0.1-1.0); MONO % 8.4 % (3.0-9.0); NEUT # 3.4 10*3/uL (2.3-7.9); NEUT % 54.9 % (47.0-73.0); PLATELET COUNT AUTOMATED 307 10*3/uL (130-400); RED BLOOD COUNT 3.32 10*6/uL (4.10-5.10); RED CELL DISTRI WIDTH 18.7 % (0-14.5); WHITE BLOOD COUNT 6.2 10*3/uL (4.8-10.8)
[2020-04-13 06:40] LABS: BUN 9 mg/dl (7-24); CREATININE 0.72 mg/dL (0.55-1.02)
[2020-04-13 08:00] VITALS: BP 159/79
[2020-04-13 12:00] VITALS: BP 164/93
[2020-04-13 16:00] VITALS: BP 164/83
[2020-04-13 20:00] VITALS: BP 162/97
[2020-04-14] VITALS: BP 158/94
[2020-04-14 05:52] LABS: ALBUMIN 2.3 gm/dl (3.1-4.5); ALKALINE PHOSPHATASE 80 U/L (45-117); BUN 15 mg/dl (7-24); CHLORIDE 94 mmol/L (98-107); CREATININE 0.72 mg/dL (0.55-1.02); POTASSIUM 3.6 mmol/L (3.5-5.1); SGOT/AST 20 IU/L (3-35); SGPT/ALT 13 U/L (12-78); SODIUM 134 mmol/L (136-145)
[2020-04-14 06:06] LABS: HEMATOCRIT 31.4 % (37.0-47.0); MEAN CELL VOLUME 78.9 fl (81.0-99.0); MEAN CORPUSCULAR HGB 22.9 pg (27.0-31.0); MEAN PLATELET VOLUME 8.9 fl (9.6-12.3); PLATELET COUNT AUTOMATED 399 10*3/uL (130-400); RED BLOOD COUNT 3.98 10*6/uL (4.10-5.10); WHITE BLOOD COUNT 5.9 10*3/uL (4.8-10.8)
[2020-04-14 07:31] LABS: MICROCYTOSIS SLIGHT; PLATELET SUFFICIENCY NORMAL (NORMAL); TOTAL CELLS COUNTED 100 #CELLS
[2020-04-14 08:00] VITALS: BP 170/89
[2020-04-14] MEDS ORDERED: ELIQUIS2.5 M1 PO (09:23)
[2020-04-14] MEDS ORDERED: VITAMIN C500 M1 PO (09:33)
[2020-04-14] MEDS ORDERED: ASPIRIN81 M1 PO (09:34)
[2020-04-14] MEDS ORDERED: PLAVIX75 M1 PO (09:37)
[2020-04-14] MEDS ORDERED: CRANBERRY200 MG PO (09:38)
[2020-04-14] MEDS ORDERED: MAGNESIUM400 M1 PO (09:41)
[2020-04-14] MEDS ORDERED: POTASSIUM CHLO20 ME4 PO (09:42)
[2020-04-14] MEDS ORDERED: THIAMINE HCL100 MG PO (09:44)
[2020-04-14 12:00] VITALS: BP 187/84
[2020-04-14 16:00] VITALS: BP 185/84
[2020-04-14 20:00] VITALS: BP 175/85
[2020-04-15] VITALS: BP 153/73
[2020-04-15 05:40] LABS: BUN 22 mg/dl (7-24); CHLORIDE 96 mmol/L (98-107); CREATININE 0.85 mg/dL (0.55-1.02); POTASSIUM 3.5 mmol/L (3.5-5.1); SODIUM 136 mmol/L (136-145)
[2020-04-15 06:43] LABS: HEMATOCRIT 28.9 % (37.0-47.0); MEAN CELL VOLUME 79.8 fl (81.0-99.0); MEAN CORPUSCULAR HGB 22.9 pg (27.0-31.0); MEAN CORPUSCULAR HGB CONC 28.7 g/dl (33.0-37.0); MEAN PLATELET VOLUME 9.1 fl (9.6-12.3); PLATELET COUNT AUTOMATED 407 10*3/uL (130-400); RED BLOOD COUNT 3.62 10*6/uL (4.10-5.10); RED CELL DISTRI WIDTH 18.4 % (0-14.5); WHITE BLOOD COUNT 6.4 10*3/uL (4.8-10.8)
[2020-04-15 07:53] LABS: POLYCHROMASIA SLIGHT; TOTAL CELLS COUNTED 100 #CELLS
[2020-04-15 07:54] LABS: MICROCYTOSIS SLIGHT; PLATELET SUFFICIENCY HIGH (NORMAL)
[2020-04-15 08:00] VITALS: BP 184/87
[2020-04-15 12:00] VITALS: BP 171/82
[2020-04-15 16:00] VITALS: BP 159/87
[2020-04-15 20:00] VITALS: BP 182/67
[2020-04-16] VITALS: BP 174/81
[2020-04-16 06:16] LABS: HEMATOCRIT 29.8 % (37.0-47.0); MEAN CELL VOLUME 80.1 fl (81.0-99.0); MEAN CORPUSCULAR HGB 23.4 pg (27.0-31.0); MEAN CORPUSCULAR HGB CONC 29.2 g/dl (33.0-37.0); MEAN PLATELET VOLUME 8.9 fl (9.6-12.3); PLATELET COUNT AUTOMATED 400 10*3/uL (130-400); RED BLOOD COUNT 3.72 10*6/uL (4.10-5.10); RED CELL DISTRI WIDTH 18.2 % (0-14.5); WHITE BLOOD COUNT 8.4 10*3/uL (4.8-10.8)
[2020-04-16 06:49] LABS: MICROCYTOSIS SLIGHT; OVALOCYTES FEW; PLATELET SUFFICIENCY NORMAL (NORMAL); POLYCHROMASIA SLIGHT; TOTAL CELLS COUNTED 100 #CELLS
[2020-04-16 06:51] LABS: ALBUMIN 2.5 gm/dl (3.1-4.5); BUN 27 mg/dl (7-24); CHLORIDE 96 mmol/L (98-107); CREATININE 0.87 mg/dL (0.55-1.02); POTASSIUM 3.8 mmol/L (3.5-5.1); SGOT/AST 19 IU/L (3-35); SGPT/ALT 14 U/L (12-78); SODIUM 136 mmol/L (136-145); TOTAL PROTEIN 7.6 gm/dL (6.4-8.2)
[2020-04-16 06:54] LABS: ALKALINE PHOSPHATASE 77 U/L (45-117); LDH 242 U/L (84-246)
[2020-04-16 08:00] VITALS: BP 178/77
[2020-04-16 12:00] VITALS: BP 162/80
[2020-04-16] MEDS ORDERED: DECADRON4 MG PO ×2 (14:48→14:59)
[2020-04-16 16:00] VITALS: BP 158/86
== END 2020-04-16 19:45 | DRG 871 ==
LOC: ED 15:34 → EDHOLD 17:26 → 4E 17:26
PROVIDERS: Emergency Medicine; Internal Medicine; Social Worker Clinical; Student in an Organized Health Care Education/Training Program; ADMIT Family Medicine; ATTEND Family Medicine
PROC: 5A09357 Assistance with Respiratory Ventilation, Less than 24 Consecutive Hours, Continuous Positive Airway Pressure (ICD-10-PCS; principal; 2020-04-12)
PROC: XW033E5 Introduction of Remdesivir Anti-infective into Peripheral Vein, Percutaneous Approach, New Technology Group 5 (ICD-10-PCS; 2020-04-12)
PROC: 5A09357 Assistance with Respiratory Ventilation, Less than 24 Consecutive Hours, Continuous Positive Airway Pressure (ICD-10-PCS; 2020-04-15)
DX: A41.89 Other specified sepsis (principal); U07.1 COVID-19; J12.82 Pneumonia due to coronavirus disease 2019; J96.21 Acute and chronic respiratory failure with hypoxia; E43 Unspecified severe protein-calorie malnutrition; J96.22 Acute and chronic respiratory failure with hypercapnia; E87.1 Hypo-osmolality and hyponatremia; I13.0 Hypertensive heart and chronic kidney disease with heart failure and stage 1 through stage 4 chronic kidney disease, or unspecified chronic kidney disease; I50.32 Chronic diastolic (congestive) heart failure; Z68.42 Body mass index [BMI] 45.0-49.9, adult; E87.6 Hypokalemia; E03.9 Hypothyroidism, unspecified; D50.9 Iron deficiency anemia, unspecified; E11.22 Type 2 diabetes mellitus with diabetic chronic kidney disease; N18.30 Chronic kidney disease, stage 3 unspecified; Z79.4 Long term (current) use of insulin; G89.29 Other chronic pain; K59.00 Constipation, unspecified; E78.5 Hyperlipidemia, unspecified; G47.00 Insomnia, unspecified; G25.81 Restless legs syndrome; Z96.652 Presence of left artificial knee joint; E11.65 Type 2 diabetes mellitus with hyperglycemia; E83.42 Hypomagnesemia; E11.42 Type 2 diabetes mellitus with diabetic polyneuropathy; N32.81 Overactive bladder; D72.0 Genetic anomalies of leukocytes; E66.01 Morbid (severe) obesity due to excess calories; M21.379 Foot drop, unspecified foot; X58.XXXA Exposure to other specified factors, initial encounter; Z98.51 Tubal ligation status; Z90.710 Acquired absence of both cervix and uterus; Z87.891 Personal history of nicotine dependence; Y93.89 Activity, other specified; Y92.89 Other specified places as the place of occurrence of the external cause